=== PATIENT | female | born 1955 | race Hispanic/Latino ===

== ENCOUNTER 2023-08-30 12:29 | Emergency (ER) | payer OTHER, SELFPAY ==
[2023-08-30 12:38] VITALS: BP 158/58
[2023-08-30 12:43] VITALS: BMI 27.5
--- NOTE | 2023-08-30 13:23 | ED.GENMED ---
History of Present Illness
General
Chief Complaint: Catheter/Tube Problem
Source: patient and family
Time Seen by Provider: 08/30/23 12:49
History of Present Illness
History of Present Illness:
68-year-old female presents to the emergency room for evaluation of bleeding from left dialysis graft. Patient states that she typically does not have much bleeding after dialysis but today they could not get the bleeding to stop. She arrives with
a clamp applied to the fistula. Patient also complaining of right ear pain and drainage at times. She was given an antibiotic by her primary care doctor which did not help. She does not know the name of the antibiotic. Patient feels like she has
been having pain in this ear for about 4 months.
Past History
Past History
ED Past Medical History: CVA (Visual issues), HTN, Hypercholesterolemia, IDDM, Renal failure (M-W-F dialysis) and Other (Headaches. Neuropathy, Colitis, )
ED Past Surgical History: Cholecystectomy and Other (AV fistula, Right eye implant)
Social History
Tobacco: Non-smoker
Alcohol: None
Drug: None
Personal:
Living: with family
Employment: Retired
Family History
Family History: Diabetes
Phy Exam
Physical Exam
Physical Exam:
General: Awake, Alert, Oriented X3. No acute distress, appears chronically ill.
Vitals: unremarkable
Head: Atraumatic
Ear: Erythema noted right TM
Eyes: Pupils equal, EOMI
Throat: Airway intact, no exudates
Neck: Trachea midline
Lungs: Clear and equal b/l
Heart: Regular rate, no murmurs
Abd: Soft, Nontender, No pulsatile mass
Neuro: Nonfocal
Skin: Warm, dry, no rash
Extremities: pulses equal b/l, no edema. Left upper extremity AV fistula for dialysis noted with clamp applied. Clamp was removed and bleeding has stopped. There is a pulse and thrill palpated in the graft.
Course
Orders/Labs/Results
Orders:
Orders
08/30/23 13:19
US Hemodialysis Graft Urgent
Comment:
Reason For Exam: bleeding left upper av fistula
08/30/23 13:22
Amoxicillin 875 mg/Clav 125 mg [Augmentin 875 mg/125 mg] 1 tablet PO NOW STA
08/30/23 13:46
Complete Blood Count/With Diff Urgent
Abnormal Lab Results
08/30/23
13:46
RBC 4.09 L 10^6/uL
(4.20-5.40)
Hct 36.0 L %
(37.0-47.0)
RDW 14.6 H %
(11.5-14.5)
Abs Immat Gran (auto) 0.1 H 10^3/uL
(0-0.05)
Absolute Neuts (auto) 6.8 H 10^3/uL
(1.4-6.5)
Absolute Monos (auto) 0.9 H 10^3/uL
(0.1-0.6)
Lymphocytes % 19.5 L %
(20.5-51.1)
08/30/23 13:46
Vital Signs
Initial and Last Documented VS:
Initial Vital Signs
Temp Pulse Resp BP Pulse Ox
97.7 F 71 18 158/58 97
08/30/23 12:38 08/30/23 12:38 08/30/23 12:38 08/30/23 12:38 08/30/23 12:38
Last Documented Vital Signs
Temp Pulse Resp BP Pulse Ox
97.7 F 71 18 158/58 97
08/30/23 12:38 08/30/23 12:38 08/30/23 12:38 08/30/23 12:38 08/30/23 12:38
MDM/Problems Addressed
Differential Diagnosis Includes:
Thrombocytopenia, dysfunction of AV fistula, some persistent bleeding
MDM/Problems Addressed:
Reviewing patient's previous hospitalizations I see that she has had multiple issues with this graft. She had a thrombectomy performed by IR in 2022. This was 1 of many interventions. Will obtain an ultrasound to evaluate for complications of the
graft. From a right ear pain standpoint we will treat the patient with Augmentin
*Pulse Oximetry
Patient hypoxic: no
*Critical Care Note
Total Time (30-74mins, 75-104mins- exclusive of procedures): Not Applicable
ED Attending Note
-
Portions of this chart may have been created with voice recognition software.� Occasional wrong word or��sound alike� substitutions may have occurred due to the inherent limitations of voice recognition software.
Discharge Plan
Departure
Patient Disposition: Home (Routine Discharge)
Date of Disposition: 08/30/23
Time of Disposition: 15:23
Patient with high blood pressure during this ER visit?: Yes
Condition: Good
Discharge Problem:
Hemorrhage of arteriovenous fistula, Otitis media
Instructions: Ear Infections in Adults (DC), Arteriovenous vascular access for hemodialysis
Prescriptions:
No Action
Novolin 70/30 U-100 Insulin 100 unit/mL (70-30) suspension
10 unit SC BID
Triphrocaps 1 mg capsule
1 cap PO DAILY
cholecalciferol (vitamin D3) [Vitamin D3] 25 mcg (1,000 unit) capsule
25 mcg PO DAILY
calcium acetate(phosphat bind) 667 mg capsule
1,334 mg PO MEALS
Veltassa 16.8 gram powder in packet
16.8 g PO DAILY
famotidine 10 mg Tablet
10 mg PO DAILY
nifedipine 60 mg Tablet Extended Release
60 mg PO BID Qty: 60 0RF
acetaminophen 325 mg Tablet
650 mg PO Q4HPRN PRN (Reason: mild pain) Qty: 30 0RF
furosemide 40 mg tablet
40 mg PO SUTUTHSA
furosemide 20 mg tablet
20 mg PO SUTUTHSA
hydralazine 25 mg Tablet
25 mg PO TID 30 Days Qty: 90 0RF
Referrals:
Lion Santos MD [Active] -
Gabo Whitaker MD [Active] -
Cal Luque DO [Family Provider] -
Activity Restrictions/Additional Instructions:
Please follow up with your vascular surgeon for the bleeding from the av fistula. Also, follow up with Dr Santos, who is an ENT doctor, for the right ear infection that has been a problem for months.
Interventions
Interventions:
*Risk Screen - Suicide Last Done: 08/30/23 12:42
*General Assessment Last Done: 08/30/23 12:42
*Neglect/Abuse Screening Last Done: 08/30/23 12:42
ED- Fall Risk Assessment Last Done: 08/30/23 13:15
*ED COVID-19 Vaccine History Last Done: 08/30/23 12:42
*Nursing Disposition Last Done: 08/30/23 15:35
Discharge Date and Time
Discharge Date/Time: 08/30/23 15:35
Print Language: VIETNAMESE
[2023-08-30 13:56] LABS: % Eosinophils 2.1 % (0-6); % Immature Granulocytes 0.5 % (0-0.5); % Lymphocytes 19.5 % (20.5-51.1); % Monocytes 9.3 % (1.7-9.3); % Neutrophils 67.6 % (42.2-75.2); Absolute Basophils 0.1 10^3/uL (0-0.2); Absolute Eosinophils 0.2 10^3/uL (0-0.7); Absolute Immature Granulocytes 0.1 10^3/uL (0-0.05); Absolute Monocytes 0.9 10^3/uL (0.1-0.6); Absolute Neutrophils 6.8 10^3/uL (1.4-6.5); Hemoglobin 12.1 g/dL (12.0-16.0); Mean Corp Hgb Conc. 33.6 g/dL (33.0-37.0); Mean Corpuscular Hgb 29.6 pg (27.0-31.0); Mean Platelet Volume 9.8 fL (7.4-10.4); Nucleated Red Blood Cells % 0 %; Platelet Count 246 10^3/uL (130-400); Red Blood Cell Count 4.09 10^6/uL (4.20-5.40); Red Cell Dist. Width 14.6 % (11.5-14.5)
[2023-08-30] MEDS: AUGMENTIN 875 MG/125 MG 1 TABLET PO (14:22)
== END 2023-08-30 15:35 | disposition home or self-care (01) ==
LOC: EMR 12:29
PROVIDERS: EMERGENCY PHYSICIAN Emergency Medicine; FAMILY PHYSICIAN Family Medicine
DX: T82.838A Hemorrhage due to vascular prosthetic devices, implants and grafts, initial encounter (principal); Y84.1 Kidney dialysis as the cause of abnormal reaction of the patient, or of later complication, without mention of misadventure at the time of the procedure; H66.91 Otitis media, unspecified, right ear; I10 Essential (primary) hypertension; E11.22 Type 2 diabetes mellitus with diabetic chronic kidney disease; N18.6 End stage renal disease; I69.312 Visuospatial deficit and spatial neglect following cerebral infarction; E11.40 Type 2 diabetes mellitus with diabetic neuropathy, unspecified; E78.00 Pure hypercholesterolemia, unspecified; K52.9 Noninfective gastroenteritis and colitis, unspecified; Z99.2 Dependence on renal dialysis; Z79.4 Long term (current) use of insulin; Z90.49 Acquired absence of other specified parts of digestive tract
CPT/HCPCS: 99284; 85025; 93990

== ENCOUNTER 2024-03-18 06:25 | Inpatient (IN) | payer OTHER, SELFPAY ==
[2024-03-18] VITALS (92 sets, daily range): BP systolic 86–221; BP diastolic 39–95; PULSE 80–82; O2SAT 97; BMI 31.5; BMI 31.1
--- NOTE | 2024-03-18 03:50 | ED.GENMED ---
History of Present Illness
General
Chief Complaint: Breathing Problem
Source: patient, family (Son who is at bedside and interpreting) and previous hospital records
Exam Limitations: none
Time Seen by Provider: 03/18/24 03:42
History of Present Illness
History of Present Illness:
This is a 68-year-old Faroese-speaking woman who resides at home with family. She has history of end-stage renal disease, dialysis dependent Monday/Monday/Monday. Insulin requiring diabetes, hypertension, hyperlipidemia.
She presents with abrupt onset of cough and shortness of breath that woke her from sleep approximately 1 hour prior to arrival. Prior to waking she has been feeling well.
No recent URI nor GI illness.
Has been completing her dialysis sessions without adverse event. She denies fever nor chills. She denies sore throat.
No recent change in weight. No leg pain or swelling.
She does continue to urinate a small amount.
There has been no recent change in medications.
Son states diabetes has been well-controlled.
Along with shortness of breath she notes moderate substernal chest heaviness, worse with a deep breath. She denies back pain or neck pain.
Past History
Past History
ED Past Medical History: CVA (Visual issues), HTN, Hypercholesterolemia, IDDM, Renal failure (M-W-F dialysis) and Other (Headaches. Neuropathy, Colitis, )
ED Past Surgical History: Cholecystectomy and Other (AV fistula, Right eye implant)
Social History
Tobacco: Non-smoker
Alcohol: None
Drug: None
Personal:
Living: with family
Employment: Retired
Family History
Family History: Diabetes
Phy Exam
Physical Exam
Physical Exam:
GENERAL: 68-year-old Faroese-speaking woman appears her stated age, awake and alert, in moderate respiratory distress. Room air pulse ox 82%, has improved to 96% on 6 L nasal cannula.
EYE: anicteric
NECK: Supple, nontender, no meningismus, no significant adenopathy. Moderate JVD.
ENT: oral mucosa is moist. No rhinorrhea.
CARDIAC: Regular rate and rhythm. no murmur.
LUNGS: Mild to moderate respiratory distress, bilateral Rales one half of the way up
ABDOMEN: Soft, nondistended, without focal tenderness, no r/g, no cvat. normoactive BS.
NEUROLOGICAL: Alert and oriented x3, no focal neuro deficits.
SKIN: Warm and minimally diaphoretic, normal color, skin intact. No rash.
MUSCULOSKELETAL: Trace pretibial edema bilateral lower extremities, peripheral pulses are full and equal b/l. No palpable tenderness.
PSYCH: Normal and appropriate interaction.
Scores
Heart Failure Risk
Heart Failure Risk Score: Yes
History of Stroke or TIA: Yes
History of intubation for respiratory distress: No
Heart rate on ED arrival >/= 110: No
SaO2 <90% on arrival on room air: Yes
HR >/=110 during 3min walk test (or too ill to perform test): Yes
ECG has acute ischemic changes: No
Urea >/=12mmol/L (BUN 33.6mg/dL): Yes
Serum CO2>/=35mmol/L: No
Troponin I or T elevated to MO Level (0.4mg/dL): No
NT-proBNP >/=5,000ng/L (5,000pg/ml): Yes
HF Risk Score: 6
Admission Status: VERY HIGH RISK 55.3% Consider admission to hospital
Course
Orders/Labs/Results
Orders:
Orders
03/18/24 03:41
Electrocardiogram (*1) Urgent
Reason for Study: Shortness of Breath
EKG- Treatment ONCE
03/18/24 03:48
Furosemide [Lasix] 100 mg IV NOW STA
Nitroglycerin 100 mg/250 ml [Nitroglycerin Premix] 100 mg in 250 ml IV NOW
Initial dose in mcg/min, then titrate:: 5
Titrate to keep:: SBP < 160 mmHg
Titrate by mcg/min:: 5 mcg/min, may increase by 10 mcg/min if dose > 20 mcg/min
Frequency of titrations (minutes):: every 3-5 minutes
Maximum dose in mcg/min:: 200
Begin to taper infusion when:: Remained at goal for 2hrs
Taper by mcg/min:: 5 mcg/min
Frequency of taper (minutes) if patient maintains goal:: 30
Taper to off?: Yes
If infusion off & no longer maintaining goal:: Contact Provider
CR Chest Portable - 1 View Urgent
Comment:
Reason For Exam: acute SOB, hypoxia
Reason Study Needs to be Portable: Patient Unstable
03/18/24 03:54
Basic Metabolic Panel Urgent
Comment: NO K
Complete Blood Count/With Diff Urgent
Magnesium Urgent
NT-proBNP Urgent
Phosphorus Urgent
03/18/24 04:08
Add On- LAB Urgent
Tests Added?: procal
03/18/24 04:19
Whrer-Rzxm-Rdipkef Urgent
Potassium Urgent
Procalcitonin Urgent
Comment: REDRAW
Troponin I Urgent
Comment: SERUM
03/18/24 04:58
Ondansetron Injectable [Zofran] 4 mg .ROUTE .STK-MED ONE
03/18/24 05:00
Ondansetron Injectable [Zofran] 4 mg IV NOW STA
03/18/24 05:03
Dextrose 50%-Water [Dextrose 50% Syringe] 12.5 grams IV [id number] PRN
Dextrose 50%-Water [Dextrose 50% Syringe] 25 grams IV NOW STA
Insulin Human Regular [Novolin R] 10 units IV NOW STA
03/18/24 05:05
COVID-19 Antigen Urgent
Source: Nasal Swab
Influenza A+B Rapid Molecular Urgent
VERA Source: Nasal Swab
Specimen Description:
Bedside Glucose PRE IV Insulin- HyperK+ NOW
03/18/24 05:06
Sodium Bicarbonate 50 meq IV NOW STA
03/18/24 05:08
Albuterol Sulfate [Ventolin Nebules] 10 mg INH R NOW STA
03/18/24 06:06
Admit/Transfer Patient As Directed
Co-Sign Provider:
Level of Care: Inpatient admission
Assign to:: IMU- Intermediate Care
Physician / Group: Bobby
Diagnosis: Hypertensive Emergency / Pulmonary Edema
Reason for Hospitalization: Hypertensive Emergency / Pulmonary Edema
Expected length of stay greater than two midnights?: Yes
ELOS- Estimated Length of Stay in days: 3
I certify the patient meets the requirements for IP care: Yes
PRN Pain Medication Management As Directed
May give lesser potent ordered pain med per pt: Yes
preference::
Protocol:: Medication orders for pain may be administered in a
manner that supports deferring to patient preference
when the pt is:
- Requesting an ordered lesser potent pain medication.
Least to most potent pain medications are defined
as: acetaminophen < NSAID < tramadol < opioids
(morphine, oxycodone, hydromorphone).
- Requesting a lesser dose of the same medication IF
ORDERED.
- Requesting a less intrusive route of administration
if both routes are prescribed by the provider (PO <
IV).
03/18/24 06:08
Code Status As Directed
Resuscitation Status: Full Code
03/18/24 06:11
Add On- LAB Urgent
Tests Added?: Magnesium, Phosphorus
03/18/24 06:35
Bedside Glucose POST IV Insulin- HyperK+ Q1HX2,Q2HX2
03/18/24 07:35
Potassium Urgent
Comment: draw 2 hours after regular insulin IV administration
Abnormal Lab Results
03/18/24 03/18/24 03/18/24
03:54 04:19 05:12
WBC 12.3 H 10^3/uL
(4.8-10.8)
RBC 3.45 L 10^6/uL
(4.20-5.40)
Hgb 10.3 L g/dL
(12.0-16.0)
Hct 31.8 L %
(37.0-47.0)
MCHC 32.4 L g/dL
(33.0-37.0)
RDW 14.8 H %
(11.5-14.5)
MPV 10.6 H fL
(7.4-10.4)
Abs Immat Gran (auto) 0.1 H 10^3/uL
(0-0.05)
Absolute Neuts (auto) 9.0 H 10^3/uL
(1.4-6.5)
Absolute Monos (auto) 1.0 H 10^3/uL
(0.1-0.6)
Lymphocytes % 13.9 L %
(20.5-51.1)
Potassium 6.5 H* mmol/L
(3.5-5.1)
Carbon Dioxide 21 L mmol/L
(22-30)
BUN 71 H mg/dl
(7-17)
Creatinine 10.0 H* mg/dL
(0.6-1.0)
Glucose 187 H mg/dl
(70-99)
Direct Bilirubin 0.6 H mg/dl
(0.0-0.4)
AST 68 H U/L
(14-36)
ALT 100 H U/L
(0-35)
Alkaline Phosphatase 296 H U/L
(38-126)
Total Protein 8.4 H g/dl
(6.3-8.2)
Procalcitonin 0.63 H ng/ml
(0.0-0.25)
POC Glucose 199 H mg/dl
(70-99)
03/18/24 03:54
Vital Signs
Initial and Last Documented VS:
Initial Vital Signs
Temp Pulse Resp BP Pulse Ox
98.7 F 95 32 206/87 82
03/18/24 03:29 03/18/24 03:29 03/18/24 03:29 03/18/24 03:29 03/18/24 03:29
Last Documented Vital Signs
Temp Pulse Resp BP Pulse Ox
98.7 F 110 20 170/70 97
03/18/24 03:29 03/18/24 06:05 03/18/24 06:05 03/18/24 06:05 03/18/24 06:05
MDM/Problems Addressed
Differential Diagnosis Includes:
Concern for acute CHF, ACS, pneumonia.
Noted to be significantly hypertensive.
EKG shows normal sinus rhythm, no acute ST-T wave abnormalities.
Will initiate IV nitroglycerin for preload reduction, improvement in systolic hypertension, will give IV dose of Lasix.
Will check portable chest x-ray, labs and continue supplemental oxygen.
Chronic conditions affecting care: DM, HTN and Kidney disease
*Radiology
Radiology exam reviewed: preliminary read by ED provider (Chest x-ray shows bilateral fluffy infiltrates more pronounced on the right than the left concerning for CHF versus bilateral pneumonia)
*Pulse Oximetry
Patient hypoxic: yes
*EKG
Interpreted by ED Provider?: Yes
Comparison EKG: no changes (Unchanged from previous July 2022)
Rate: normal
Rhythm: sinus
[place]: normal axis
Interval: normal interval
QRS Pattern: normal QRS
Ischemia: other (Peaked T waves anteriorly)
*Viscose Cellar Worker Interpretation
Rate: normal
Interpretation: normal
Rhythm: sinus
*Critical Care Note
Total Time (30-74mins, 75-104mins- exclusive of procedures): 60
comment:
Critical care statement: A total of 60 minutes of critical care time was provided for this patient. This includes management of unstable vital signs, evaluation of the patient at bedside, reviewing the patient's pertinent medical records, discussion
with consultants, review of old EKGs and review of pertinent medical records. This time with separate from time utilized to perform the aforementioned documented procedures
Update Note
Update Note:
Patient appears much more comfortable with nasal cannula oxygen.
Chest pain has resolved. She does continue with intermittent cough, nonproductive.
Systolic hypertension persists, only minimally improved, nitro drip is being titrated up.
Labs remarkable for mildly elevated white blood cell count, mild anemia
Moderately elevated potassium of 6.5. EKG does show some peaked T waves thus hyperkalemia treated emergently with IV dextrose, IV insulin, IV bicarbonate. She had already been given IV Lasix and will give albuterol nebulizer treatment. Calcium is
top normal thus additional calcium has been withheld, especially in light of chronic kidney disease/dialysis dependent.
BNP significantly elevated.
Procalcitonin is mildly elevated and with chest x-ray findings of bilateral fluffy infiltrates, I do suspect with abrupt onset this is CHF in nature but must also consider pneumonia.
She remains afebrile.
Will check COVID and influenza and if these are negative, will consider initiation of IV antibiotics.
Will admit to hospitalist service.
ED Attending Note
-
Portions of this chart may have been created with voice recognition software.� Occasional wrong word or��sound alike� substitutions may have occurred due to the inherent limitations of voice recognition software.
Discharge Plan
Departure
Patient Disposition: Admit
Date of Disposition: 03/18/24
Time of Disposition: 05:38
Admit to: IMU
Admit to doctor: Bobby
Presentation/result/management discussed w/ accepting MD/DO: Hospitalist
Condition: Serious
Covid-19: Negative COVID-19
Discharge Problem:
Acute hypoxemic respiratory failure, Acute cardiogenic pulmonary edema, Cough, concern for bilateral pneumonia, Hypertensive chronic kidney disease with stage 5 chronic kidney disease or end stage renal disease, ESRD (end stage renal disease) on
dialysis, Hyperkalemia
Prescriptions:
No Action
Novolin 70/30 U-100 Insulin 100 unit/mL (70-30) suspension
10 unit SC BID
Triphrocaps 1 mg capsule
1 cap PO DAILY
cholecalciferol (vitamin D3) [Vitamin D3] 25 mcg (1,000 unit) capsule
25 mcg PO DAILY
calcium acetate(phosphat bind) 667 mg capsule
1,334 mg PO MEALS
Veltassa 16.8 gram powder in packet
16.8 g PO DAILY
famotidine 10 mg Tablet
10 mg PO DAILY
nifedipine 60 mg Tablet Extended Release
60 mg PO BID Qty: 60 0RF
acetaminophen 325 mg Tablet
650 mg PO Q4HPRN PRN (Reason: mild pain) Qty: 30 0RF
hydralazine 25 mg Tablet
25 mg PO TID 30 Days Qty: 90 0RF
Referrals:
Cal Luque DO [Family Provider] -
Discharge Date and Time
Print Language: SAMI
[2024-03-18 04:07] LABS: % Basophils 0.9 % (0-2); % Eosinophils 2.9 % (0-6); % Immature Granulocytes 0.5 % (0-0.5); % Lymphocytes 13.9 % (20.5-51.1); % Monocytes 8.4 % (1.7-9.3); % Neutrophils 73.4 % (42.2-75.2); Absolute Basophils 0.1 10^3/uL (0-0.2); Absolute Eosinophils 0.4 10^3/uL (0-0.7); Absolute Immature Granulocytes 0.1 10^3/uL (0-0.05); Absolute Lymphocytes 1.7 10^3/uL (1.2-3.4); Hematocrit 31.8 % (37.0-47.0); Hemoglobin 10.3 g/dL (12.0-16.0); Mean Corp Hgb Conc. 32.4 g/dL (33.0-37.0); Mean Corpuscular Hgb 29.9 pg (27.0-31.0); Mean Corpuscular Volume 92.2 fL (81.0-99.0); Mean Platelet Volume 10.6 fL (7.4-10.4); Nucleated Red Blood Cells % 0 %; Platelet Count 352 10^3/uL (130-400); Red Blood Cell Count 3.45 10^6/uL (4.20-5.40); Red Cell Dist. Width 14.8 % (11.5-14.5); White Blood Cell Count 12.3 10^3/uL (4.8-10.8)
[2024-03-18] MEDS: LASIX 100 MG IV (04:20)
[2024-03-18] MEDS: NITROGLYCERIN PREMIX 250 IV (04:20)
[2024-03-18 04:35] LABS: Blood Urea Nitrogen 71 mg/dl (7-17); Calcium 9.3 mg/dl (8.4-10.2); Carbon Dioxide 21 mmol/L (22-30); Chloride 98 mmol/L (98-107); Estimated Creatinine Clearance 4 ml/min; Glucose 187 mg/dl (70-99); NT-proBNP 8990 pg/ml; Sodium 136 mmol/L (135-145); eGFR 3.82
[2024-03-18] MEDS: ZOFRAN 4 MG IV (05:00)
[2024-03-18 05:01] LABS: ALT (SGPT) 100 U/L (0-35); AST (SGOT) 68 U/L (14-36); Albumin 4.2 g/dl (3.5-5.0); Alkaline Phosphatase 296 U/L (38-126); Direct Bilirubin 0.6 mg/dl (0.0-0.4); Potassium 6.5 mmol/L (3.5-5.1); Total Bilirubin 0.6 mg/dl (0.2-1.3); Total Protein 8.4 g/dl (6.3-8.2)
[2024-03-18 05:07] LABS: Procalcitonin 0.63 ng/ml (0.0-0.25)
[2024-03-18 05:14] LABS: Glucose - Point of Care 199 mg/dl (70-99)
[2024-03-18] MEDS: SODIUM BICARBONATE 50 MEQ IV (05:15)
[2024-03-18] MEDS: DEXTROSE 50% SYRINGE 25 GRAMS IV (05:15)
[2024-03-18] MEDS: VENTOLIN NEBULES 10 MG INH (05:16)
[2024-03-18] MEDS: NOVOLIN R 10 UNITS IV (05:16)
[2024-03-18 05:30] LABS: COVID-19 Antigen Negative (Negative)
[2024-03-18 05:41] LABS: Troponin I 0.017 ng/ml
--- NOTE | 2024-03-18 06:12 | HPS.HSE ---
Family Physician
-
Family Physician: Cal Luque
Chief Complaint
-
SOB, Chest Pain
History of Present Illness
Patient is a 68y F with PMH significant for ESRD on HD, hypertension and DM-II who presents to ED complaining of chest pain and SOB that woke her from sleep early this AM. History obtained from patient and family with family serving as
hemmer automatic. Patient was feeling well last PM upon going to bed. Woke around 2:30 - 3 AM with chest heaviness / 'pounding' and significant SOB. Presented to the ED for further evaluation.
Patient has HD and had her usual session on Monday with no issues.
Some cough noted this AM which family also states is new.
Medical History
Past Medical History
Past Medical History: Reports Other
Additional Past Medical History:
ESRD on HD ()
DM-II
Hypertension
Anemia of CKD
Persistent Hyperkalemia
Suspected Hepatocellular Carcinoma (patient not aware per family request)
Volume Overload / CHFpEF
Past Surgical History: Reports Other
Additional Past Surgical History:
LUE AVG
Cholecystectomy
R Eye Surgery
Social History
Tobacco: Non-smoker
Alcohol: None
Drug: None
Family History
Family History: Not pertinent
Allergies / Home Medications
Allergies reflects when Allergies were last updated in [facility].
Home Medications with original date entered in [facility]
Allergy/Medication List:
Allergies
Allergy/AdvReac Type Severity Reaction Status Date / Time
No Known Allergies Allergy Verified 03/18/24 03:33
Home Medications
calcium acetate(phosphat bind) 667 mg capsule 1,334 mg PO MEALS supplement (renal) 02/25/22
cholecalciferol (vitamin D3) 25 mcg (1,000 unit) capsule (Vitamin D3) 25 mcg PO DAILY Supplement 02/25/22
famotidine 10 mg tablet 10 mg PO DAILY Gastrointestinal issue 02/25/22
insulin human U-100 NPH-regulr 70-30 mix 100 unit/mL subcutaneous susp (Novolin 70/30 U-100 Insulin) 10 unit SC BID Diabetes 02/25/22
patiromer calcium sorbitex 16.8 gram oral powder packet (Veltassa) 16.8 g PO DAILY hyperkalemia (high potassium) 02/25/22
vitamin B complex and vitamin C no.20-folic acid 1 mg capsule (Triphrocaps) 1 cap PO DAILY Supplement 02/25/22
acetaminophen 325 mg tablet 650 mg (2 x 325 mg) PO Q4HPRN PRN mild pain #30 tabs 02/27/22
nifedipine 60 mg tablet,extended release 60 mg PO BID #60 tabs 02/27/22
hydralazine 25 mg tablet 25 mg PO TID 30 days #90 tabs 07/30/22
Review of Systems
-
History Source: Patient and Family
A 12 point ROS was completed and negative except as noted: Yes
Constitutional: Denies Fever or Chills
EENT: Denies Sore Throat
Respiratory: Reports Cough and Trouble Breathing; Denies Hemoptysis
Cardiac: Reports Chest Pain and Palpitations; Denies Diaphoresis
Abdomen/GI: Denies Abdominal Pain, Nausea, Vomiting or Diarrhea
: Reports Other (Patient does produce some urine.); Denies Dysuria, Frequency or Flank Pain
Musculoskeletal: Denies Edema
Neurological: Denies Dizzy or Headache
Psych: Denies Depression or Anxiety
Physical Exam
Vital Signs
Vital Signs
Temp Pulse Resp BP Pulse Ox
98.7 F 110 20 170/70 97
03/18/24 03:29 03/18/24 06:05 03/18/24 06:05 03/18/24 06:05 03/18/24 06:05
Physical Exam
General: Other (68y F in mild - moderate distress due to dyspnea.)
HEENT: Moist mucous membranes, PERRLA and Other (Pos JVD.)
Respiratory: Other (Bilateral rales > 2/3 up. No wheezes.)
Cardiac: S1/S2, Tachycardia and Murmur (II/ ELIDIA)
GI: Soft, Non Tender, Non Distended and Normal Bowel Sounds
Musculoskeletal: No Clubbing, No Cyanosis and No Edema
Neuro: AO x 3
Hematologic/Lymphatic: Other (LUE AVF with pos thrill / bruit.)
Laboratory Results
-
03/18/24 03:54
Laboratory Results
Total Bilirubin 0.6 mg/dl (0.2-1.3) 03/18/24 04:19
AST 68 U/L (14-36) H 03/18/24 04:19
ALT 100 U/L (0-35) H 03/18/24 04:19
Alkaline Phosphatase 296 U/L (38-126) H 03/18/24 04:19
Troponin I 0.017 ng/ml 03/18/24 04:19
Impression/Plan
-
A/P: Patient is a 68y F with PMH significant for ESRD on HD, hypertension and DM-II who presents to ED complaining of chest pain and SOB that woke her from sleep early this AM.
Hypertensive Emergency
Flash Pulmonary Edema secondary to the above
- Admit to IMU for further evaluation and treatment.
- Patient presents with initial BP = 220/70 with pulmonary edema, hypoxemia and chest pain.
- Continue IV NTG and titrate as needed for BP control and improvement in symptoms.
- Nephrology evaluation for HD / UF for definitive therapy.
- Follow serial troponin to peak. EKG without current changes suggestive of acute ischemia.
- Follow for clinical improvement.
- Update Echo - last in 2022 was unremarkable.
ESRD on HD
Hyperkalemia
- -- dialysis schedule.
- K on arrival was 6.5 - given temporizing treatments in the ED.
- Continue daily Veltassa which she takes at home.
- Nephrology eval / HD as noted above.
Anemia of CKD
- Hgb approx 2 grams lower than prior baseline.
- ? dilutional component given current volume overload.
- No evidence of acute blood loss, etc.
- Follow for changes in H&H.
- +/- supplementation, Epo, etc on HD per Nephrology.
DM-II
- Stable. Continue 70.30 insulin at decreased dose for now.
- DM diet. Follow glucose and cover with SSI as needed.
- Update A1C.
Abnormal LFTs
- ? secondary to hepatic congestion / volume overload.
- Degree of chronic elevation and note history / prior imaging studies consistent with hepatocellular carcinoma.
- Family has indicated that patient is not aware of this potential diagnosis / finding at their request.
- Follow LFTs for any changes.
- No further evaluation of liver lesion is planned.
DVT Prophylaxis: Subcut Heparin
Code Status: Full
[2024-03-18 06:23] LABS: Glucose - Point of Care 249 mg/dl (70-99)
[2024-03-18 07:44] LABS: Glucose - Point of Care 227 mg/dl (70-99)
--- NOTE | 2024-03-18 09:30 | PTCARENOTE ---
0900-Received pt from ED via stretcher.Pi awake and alert.Speech is appropriate.Hospital language line utilized for admission information.Pt's son also was able to answer questions for pt.Plan of care discussed with both pt and her son.Denies
pain.+4-5/5 WILKINS noted.SR noted.Nitroglycerin IV at 60 mcg.Crackles noted bl.O2 3l NC.POX 98%No void at this time.Skin integrity as documented.Pt's female friend at bedside.
--- NOTE | 2024-03-18 09:53 | W.CON.NEPH ---
Consultation
-
Date/Time Consultation Requested: 03/18/24 0638
Date/Time Consultation Performed: 02/2724 5322
Requesting Provider: Zachary Cardenas
Performing Provider: Maureen Pritchard
Reason for Consultation: ESRD
Medical History
-
Chief Complaint: sob
History of Present Illness:
68y F with PMH significant for ESRD on HD MWF at [facility], hypertension on Nifedipine, hydralazine, chr hyperkalemia on Veltasa, hyperphosphatemia on calcium acetate and DM-II on insulin who presents to ED complaining of chest pain and
SOB that woke her from sleep at 12 am, symp were mild initially but worsened by 2am and had to bring to ER. History obtained from patient and family with family serving as official court interpreter. Patient was feeling well last PM upon going to bed. in ER she
noted in flash pulm edema and HTN emergency SBP 220/70 and started on nitro gtt, lasix 100mg given, k was high 6.5 insulin, bicarb were given. Pt only makes minimal urine at baseline. Per family there were no issues with her dialysis and she is
compliant with diet and FR. AVG last intervention was months ago. Last HD was on Monday.
No fever, has mild cough. No abd pain, or diarrhea.
Past Medical History
ESRD on HD (M[facility]
Hypertension
Anemia of CKD
Persistent Hyperkalemia
Suspected Hepatocellular Carcinoma (patient not aware per family request)
Volume Overload / CHFpEF
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
Diabetes mellitus, multiple microvascular complications, neuropathy, retinopathy and nephropathy.
History of CVA.
Cholecystectomy.
Chronic headaches.
Past Surgical History: Other (LUE AVG Cholecystectomy R Eye Surgery)
Social History
She resides at home with family. She does not smoke nor consume alcohol.
Family History
Reportedly with CKD, hypertension, and diabetes mellitus.
Family History: Not Pertinent
Allergies / Home Medications
Allergy/AdvReac Type Severity Reaction Status Date / Time
No Known Allergies Allergy Verified 03/18/24 03:33
�Medication �Instructions �Recorded �Confirmed �Type
calcium acetate(phosphat bind) 667 1,334 mg PO MEALS supplement 02/25/22 03/18/24 History
mg capsule (renal)
cholecalciferol (vitamin D3) 25 25 mcg PO DAILY Supplement 02/25/22 03/18/24 History
mcg (1,000 unit) capsule (Vitamin
D3)
famotidine 10 mg tablet 10 mg PO DAILY Gastrointestinal 02/25/22 03/18/24 History
issue
insulin human U-100 NPH-regulr 10 unit SC BID Diabetes 02/25/22 03/18/24 History
70-30 mix 100 unit/mL subcutaneous
susp (Novolin 70/30 U-100 Insulin)
patiromer calcium sorbitex 16.8 16.8 g PO DAILY hyperkalemia (high 02/25/22 03/18/24 History
gram oral powder packet (Veltassa) potassium)
vitamin B complex and vitamin C 1 cap PO DAILY Supplement 02/25/22 03/18/24 History
no.20-folic acid 1 mg capsule
(Triphrocaps)
acetaminophen 325 mg tablet 650 mg (2 x 325 mg) PO Q4HPRN PRN 02/27/22 03/18/24 Rx
mild pain #30 tabs
nifedipine 60 mg tablet,extended 60 mg PO BID #60 tabs 02/27/22 03/18/24 Rx
release
hydralazine 25 mg tablet 25 mg PO TIDPRN PRN high blood 03/18/24 03/18/24 History
pressure
Review of Systems
-
all complete 12 ppoint ROS have been inquired and found negative other than stated in HPI
Physical Exam
Vital Signs
Vital Signs
Temp Pulse Resp BP Pulse Ox
98.6 F 92 17 155/61 97
03/18/24 09:04 03/18/24 08:45 03/18/24 08:45 03/18/24 08:45 03/18/24 09:04
Lab Results
WBC 12.3 10^3/uL (4.8-10.8) H 03/18/24 03:54
RBC 3.45 10^6/uL (4.20-5.40) L 03/18/24 03:54
Hgb 10.3 g/dL (12.0-16.0) L 03/18/24 03:54
Hct 31.8 % (37.0-47.0) L 03/18/24 03:54
Plt Count 352 10^3/uL (130-400) 03/18/24 03:54
Sodium 136 mmol/L (135-145) 03/18/24 03:54
Potassium 5.0 mmol/L (3.5-5.1) 03/18/24 08:02
Chloride 98 mmol/L (98-107) 03/18/24 03:54
Carbon Dioxide 21 mmol/L (22-30) L 03/18/24 03:54
BUN 71 mg/dl (7-17) H 03/18/24 03:54
Creatinine 10.0 mg/dL (0.6-1.0) H* 03/18/24 03:54
eGFR 3.82 03/18/24 03:54
Glucose 187 mg/dl (70-99) H 03/18/24 03:54
Calcium 9.3 mg/dl (8.4-10.2) 03/18/24 03:54
Ygd-P-Keqpbfyjaef Pept 8990 pg/ml 03/18/24 03:54
Albumin 4.2 g/dl (3.5-5.0) 03/18/24 04:19
Physical Exam
General: Awake, Alert, Oriented, AOx3, No Distress and Nontoxic
HEENT: EOMI, Anicteric and Other (difficult to assess JVD with thick neck)
Respiratory: Crackels, Normal Excursion and Nonlabored Respirations
Cardiac: S1/S2 and Murmur (mitral and aortic area)
Breast: Deferred by me
Abdomen: Soft, Nontender and Nondistended
Musculoskeletal: No Cyanosis and No Edema
Skin: No Rash
Neuro: Nonfocal/Grossly Intact
Psych: Mood/afflect pleasant, Insight/judgement good and Appropriate
Vascular Access: AVG
Data Reviewed
-
Radiology: Report Reviewed by me, Discussed with Patient and Discussed with Family
Labs: Labs Reviewed by me, Discussed with Patient and Discussed with Family
Assessment/Plan
-
IMP:
Hypertensive Emergency
Flash Pulmonary Edema secondary to the above
ESRD on HD 7[facility]ideas
chr Hyperkalemia
Anemia of CKD
IDDM-II
Abnormal LFTs
Possible hepatocellular carcinoma.(patient not aware per family request)
h/o CVA
Hyperphosphatemia
Plan:
A/w SOb and flash pulm edema , HTN emergency
HD now, orders provided
may need extra UF tomorrow based on symp
UF as much tolerates
noted murmur on exam-would obtain echo
attempt to wean nitro gtt after HD
resume anti HTN meds
resume phos binder
strict renal diet and FR
Lokelma in place of Veltasa
d/w pt and nursing
d/w son on phone who helped in interpretation
[2024-03-18 09:56] LABS: Glucose - Point of Care 206 mg/dl (70-99)
[2024-03-18 10:23] LABS: Magnesium 2.6 mg/dl (1.6-2.3); Phosphorus 4.5 mg/dl (2.5-4.5)
[2024-03-18] MEDS: HEPARIN 500 UNITS IV ×2 (10:25→11:25)
--- NOTE | 2024-03-18 11:34 | W.PN.NEPH.HD ---
Assessment
-
pt seen during HD
vitals stable
wean nitro gtt as able
UF as tolerates
AVG functions well
Progress Note - Hemodialysis
-
Date of Service: March 18, 2024
Duration: 30 minutes and 3 hours
Potassium Bath: 2
Calcium Bath: 2.5
Opti-Dialyzer: 160
Ultrafiltration: Other (2.5-3.5kg)
Blood Flow: 400
Dialysate Flow: 600
Heparin: yesx2
EPO: no
[2024-03-18 11:43] LABS: Glucose - Point of Care 183 mg/dl (70-99)
--- NOTE | 2024-03-18 12:37 | PTCARENOTE ---
Pt assessed.No change in assessment noted.HD is ongoing.
[2024-03-18] MEDS: VITAMIN D3 (cholecalciferol) 25 MCG PO (13:01)
[2024-03-18] MEDS: PHOSLO 1334 MG PO ×2 (13:01→16:45)
[2024-03-18] MEDS: PROCARDIA XL (EXTENDED RELEASE) 60 MG PO ×2 (13:01→20:19)
[2024-03-18] MEDS: PEPCID 10 MG PO (13:01)
[2024-03-18] MEDS: TYLENOL 650 MG PO (13:02)
[2024-03-18] MEDS: HEPARIN 5000 UNITS SC ×2 (13:02→20:18)
[2024-03-18] MEDS: NOVOLOG FLEXPEN-LOW RESISTANCE 1 UNITS SC (13:10)
--- NOTE | 2024-03-18 13:37 | W.PN.HOSP.TC ---
Today's Communication/Plan
-
HD today
BP improving
restart po meds
ECHO pending
Wean off nitro if possible
Assessment / Plan
Assessment / Plan
General: seen on HD,
HEENT: Moist mucous membranes, PERRLA and Other (Pos JVD.)
Respiratory: Other (Bilateral rales > 2/3 up. No wheezes.)
Cardiac: S1/S2, Tachycardia and Murmur (II/ ELIDIA)
GI: Soft, Non Tender, Non Distended and Normal Bowel Sounds
Musculoskeletal: No Clubbing, No Cyanosis and No Edema
Neuro: AO x 3
Hematologic/Lymphatic: Other (LUE AVF with pos thrill / bruit.)
A/P: Patient is a 68y F with PMH significant for ESRD on HD, hypertension and DM-II who presents to ED complaining of chest pain and SOB that woke her from sleep early this AM.
Hypertensive Emergency
Flash Pulmonary Edema secondary to the above
Acute hypoxic respiratory insufficiency
- Patient presents with initial BP = 220/70 with pulmonary edema, hypoxemia and chest pain.
- Continue IV NTG and titrate as needed for BP control and improvement in symptoms. Wean off nitro gtt post HD.
- Nephrology evaluation for HD / UF for definitive therapy.
- Follow serial troponin to peak. EKG without current changes suggestive of acute ischemia.
- Follow for clinical improvement.
- Update Echo - last in 2022 was unremarkable.
ESRD on HD
Hyperkalemia
- -- dialysis schedule.
- K on arrival was 6.5 - given temporizing treatments in the ED. K improved to 5 and now on HD.
- Continue daily Veltassa which she takes at home.
- Nephrology eval / HD as noted above.
Anemia of CKD
- Hgb approx 2 grams lower than prior baseline.
- ? dilutional component given current volume overload.
- No evidence of acute blood loss, etc.
- Follow for changes in H&H.
- +/- supplementation, Epo, etc on HD per Nephrology.
DM-II
- Stable. Continue 70.30 insulin at decreased dose for now.
- DM diet. Follow glucose and cover with SSI as needed.
- Update A1C.
Abnormal LFTs
- ? secondary to hepatic congestion / volume overload.
- Degree of chronic elevation and note history / prior imaging studies consistent with hepatocellular carcinoma.
- Family has indicated that patient is not aware of this potential diagnosis / finding at their request.
- Follow LFTs for any changes.
- No further evaluation of liver lesion is planned.
DVT Prophylaxis: Subcut Heparin
Code Status: Full
d/w with son over the phone in details
d/w with nephrology
Anticipated Discharge: > 48 hours
Subjective/Interval History
-
Date of Service: March 18, 2024
on oxygen
states of dry cough and pruritus at times
completed HD on monday full course
no chest pain
Objective Data
-
Labs:
Laboratory Results
03/18/24 03/18/24 03/18/24
03:54 04:19 08:02
WBC 12.3 H
Hgb 10.3 L
Hct 31.8 L
Plt Count 352
Sodium 136
Potassium 6.5 H* 5.0
Chloride 98
Carbon Dioxide 21 L
BUN 71 H
Creatinine 10.0 H*
Glucose 187 H
Calcium 9.3
Total Bilirubin Cancelled 0.6
AST Cancelled 68 H
ALT Cancelled 100 H
Alkaline Phosphatase Cancelled 296 H
Vital Signs:
Vital Signs
Temp Pulse Resp BP Pulse Ox
98.6 F 79 16 171/66 98
03/18/24 09:04 03/18/24 12:30 03/18/24 12:30 03/18/24 13:01 03/18/24 12:30
I&O
03/17/24 03/18/24 03/19/24
06:59 06:59 06:59
Intake Total 36 / 36
Balance 36 / 36
[2024-03-18 13:45] LABS: TSH Reflex To Free T4 1.31 uIU/ml (0.47-4.68)
--- NOTE | 2024-03-18 16:33 | PTCARENOTE ---
Pt assessed.No change in assessment noted.HD completed.2.5 kg off as per HD RN.Pt assisted OOB to chair with minimal assist by OT/PT.Stayed OOB x 1 hour.
[2024-03-18] MEDS: APRESOLINE 25 MG PO (16:46)
[2024-03-18] MEDS: NOVOLOG FLEXPEN-LOW RESISTANCE 2 UNITS SC (16:55)
[2024-03-18] MEDS: NOVOLOG MIX 70/30 FLEXPEN 5 UNITS SC (16:56)
[2024-03-18 17:04] LABS: Glucose - Point of Care 227 mg/dl (70-99)
[2024-03-18 17:04] LABS: Troponin I 0.064 ng/ml
[2024-03-18 21:28] LABS: Glucose - Point of Care 247 mg/dl (70-99)
[2024-03-18 21:48] LABS: Troponin I 0.024 ng/ml
[2024-03-19] VITALS (59 sets, daily range): BP systolic 102–190; BP diastolic 38–139
--- NOTE | 2024-03-19 00:32 | PTCARENOTE ---
pt transferred from ICU at shift change. pt is Swiss speaking, family at bedside to help translate. engineering program analyst line at bedside as well. pt is AAOx3, able to make needs known. on 3L 96%. dry cough noted. no c/o pain. pt oriented to new room. pt is
oliguric. able to turn self in bed. care ongoing.
[2024-03-19 04:55] LABS: Hematocrit 28.2 % (37.0-47.0); Hemoglobin 9.1 g/dL (12.0-16.0); Mean Corp Hgb Conc. 32.3 g/dL (33.0-37.0); Mean Corpuscular Hgb 29.4 pg (27.0-31.0); Mean Corpuscular Volume 91.3 fL (81.0-99.0); Mean Platelet Volume 10.5 fL (7.4-10.4); Platelet Count 321 10^3/uL (130-400); Red Blood Cell Count 3.09 10^6/uL (4.20-5.40); Red Cell Dist. Width 14.6 % (11.5-14.5); White Blood Cell Count 11.3 10^3/uL (4.8-10.8)
[2024-03-19 05:47] LABS: Blood Urea Nitrogen 45 mg/dl (7-17); Carbon Dioxide 28 mmol/L (22-30); Chloride 95 mmol/L (98-107); Estimated Creatinine Clearance 6 ml/min; Glucose 228 mg/dl (70-99); Potassium 5.6 mmol/L (3.5-5.1); Sodium 134 mmol/L (135-145); eGFR 5.87
[2024-03-19 07:57] LABS: Glucose - Point of Care 203 mg/dl (70-99)
[2024-03-19] MEDS: NOVOLOG FLEXPEN-LOW RESISTANCE 2 UNITS SC ×2 (08:02→18:28)
[2024-03-19] MEDS: NOVOLOG MIX 70/30 FLEXPEN 5 UNITS SC (08:03)
[2024-03-19] MEDS: VITAMIN D3 (cholecalciferol) 25 MCG PO (08:03)
[2024-03-19] MEDS: PEPCID 10 MG PO (08:03)
[2024-03-19] MEDS: PROCARDIA XL (EXTENDED RELEASE) 60 MG PO ×2 (08:04→20:09)
[2024-03-19] MEDS: HEPARIN 5000 UNITS SC ×2 (08:04→20:14)
[2024-03-19] MEDS: PHOSLO 1334 MG PO ×3 (08:04→18:29)
[2024-03-19] MEDS: LOKELMA 10 GRAM PO (08:04)
--- NOTE | 2024-03-19 08:28 | PTCARENOTE ---
Patient received from second rigger. Patient resting comfortably in bed. AAO, VSS. No events noted overnight. No complaints of pain at this time. Currently on 3L N/C, will attempt to wean as tolerated. Nitro gtt running at 35 for SBP <160, will
titrate as able. No tests scheduled at this time. Call forrester in reach.
[2024-03-19 11:32] LABS: Glycohemoglobin (HgbA1c) 7.3 % (4.0-5.6)
[2024-03-19] MEDS: LOPRESSOR 25 MG PO (11:43)
[2024-03-19 12:07] LABS: Glucose - Point of Care 268 mg/dl (70-99)
[2024-03-19] MEDS: HEPARIN 500 UNITS IV ×2 (12:20→13:20)
--- NOTE | 2024-03-19 12:24 | W.PN.HOSP.TC ---
Today's Communication/Plan
-
Wean off nitro drip
Start Lopressor
Uptitrate blood pressure medication
HD per nephrology
Monitor blood pressure
wean oxygen
Assessment / Plan
Assessment / Plan
General: in NAD
HEENT: Moist mucous membranes, supple
Respiratory: rales improved. on oxygen
Cardiac: S1/S2, regular rhythm, and Murmur (II/ ELIDIA)
GI: Soft, Non Tender, Non Distended and Normal Bowel Sounds
Musculoskeletal: No Clubbing, No Cyanosis and No Edema
Neuro: AO x 3
Hematologic/Lymphatic: Other (LUE AVF with pos thrill / bruit.)
A/P: Patient is a 68y F with PMH significant for ESRD on HD, hypertension and DM-II who presents to ED complaining of chest pain and SOB that woke her from sleep early this AM.
Hypertensive Emergency
Flash Pulmonary Edema secondary to the above
Acute hypoxic respiratory insufficiency
Nonischemic myocardial injury
- Patient presents with initial BP = 220/70 with pulmonary edema, hypoxemia and chest pain.
- Wean off nitro gtt as BP improving. Started lopressor. can uptitrate if needed. Cont procardia
- Nephrology evaluation for HD / UF for definitive therapy.
- Follow for clinical improvement.
- Update Echo EF of 60 to 65%. Mild concentric LVH. Normal right ventricular size and function. Estimated PASP of 36. No regional wall motion abnormality.
- US renal artery pending.
ESRD on HD
Hyperkalemia
- -- dialysis schedule.
- Continue daily Veltassa which she takes at home.
- Nephrology eval / HD as noted above.
Anemia of CKD
- ? dilutional component given current volume overload.
- No evidence of acute blood loss, etc.
- Follow for changes in H&H.
- +/- supplementation, Epo, etc on HD per Nephrology.
DM-II
- Stable. Continue 70.30 insulin at decreased dose for now.
- DM diet. Follow glucose and cover with SSI as needed.
- Doubt A1C would be accurate with ESRD
Abnormal LFTs
- ? secondary to hepatic congestion / volume overload.
- Degree of chronic elevation and note history / prior imaging studies consistent with hepatocellular carcinoma.
- Family has indicated that patient is not aware of this potential diagnosis / finding at their request.
- Follow LFTs for any changes.
- No further evaluation of liver lesion is planned.
DVT Prophylaxis: Subcut Heparin
Code Status: Full
d/w with son over the phone in details
d/w with nephrology
Anticipated Discharge: > 48 hours
Subjective/Interval History
-
Date of Service: March 19, 2024
on 3L oxygen with 100% sats
State of pruritus
Denies chest pain or sob
Objective Data
-
Labs:
Laboratory Results
03/19/24
04:18
WBC 11.3 H
Hgb 9.1 L
Hct 28.2 L
Plt Count 321
Sodium 134 L
Potassium 5.6 H
Chloride 95 L
Carbon Dioxide 28
BUN 45 H
Creatinine 7.0 H*
Glucose 228 H
Calcium 9.0
Vital Signs:
Vital Signs
Temp Pulse Resp BP Pulse Ox
98.8 F 85 16 148/48 100
03/19/24 07:11 03/19/24 11:43 03/19/24 11:30 03/19/24 11:43 03/19/24 11:30
I&O
03/18/24 03/19/24 03/20/24
06:59 06:59 06:59
Intake Total 838.5 / 838.5
Balance 838.5 / 838.5
Data Reviewed
-
Total Time Spent with Patient (in minutes): 55
[2024-03-19] MEDS: NOVOLOG FLEXPEN-LOW RESISTANCE SC (13:00)
--- NOTE | 2024-03-19 15:23 | W.PN.NEPH.HD ---
Assessment
-
pt seen during HD
vitals stable, off nitro gtt
UF as toelrated
HD again tomorrow
EDW need to be readjusted
no clear etiology of pulm edema, echo normal EF, PAP 36 better than before
check renal art duplex
may add hydralazine if BP remains high
d/w son on phone this morning
Progress Note - Hemodialysis
-
Date of Service: March 19, 2024
Duration: 30 minutes and 2 hours
Potassium Bath: 2
Calcium Bath: 2.5
Opti-Dialyzer: 160
Ultrafiltration: Other (2kg)
Blood Flow: 400
Dialysate Flow: 600
Heparin: yesx2
EPO: no
[2024-03-19] MEDS: DEBROX EAR DROPS OTIC (16:07)
--- NOTE | 2024-03-19 17:35 | CM ---
Kazakh speaking patient with Hx ESRD on HD. Room air. PT/OT recommend HH.
Met with patient, niece, with son Naseme on speaker phone;
the patient resides with her daughter Yun in a first floor apartment with 3 [address].
She is assisted with ADLs and is able to ambulate short distances only.
Patient goes to dialysis at [facility] MWF 6a-10:30amm. Son or other children provide transport to HD and Transport provides her ride home.
The patient has no DME.
Prior VN - son can't remember agency
No prior SNF
PCP - [facility]
Pharmacy - [facility]
Son states he applied for a caregiver through the Waiver program and is waiting to hear if approved. He would like VN for SN/PT/OT and agrees to a referral to [facility].
Plan home with [facility].
[2024-03-19 17:50] LABS: Glucose - Point of Care 249 mg/dl (70-99)
[2024-03-19] MEDS: NOVOLOG MIX 70/30 FLEXPEN 10 UNITS SC (18:29)
[2024-03-19] MEDS: LOPRESSOR 50 MG PO (20:13)
[2024-03-19] MEDS: DEBROX EAR DROPS 4 DROP OTIC (20:23)
[2024-03-19 21:11] LABS: Glucose - Point of Care 136 mg/dl (70-99)
--- NOTE | 2024-03-19 23:49 | PTCARENOTE ---
Assumed care of Pt from previous RN. Pt primarily Syriac speaking. chemical production machine operator device at bedside. Family was at bedside but went home for the evening. AAOx3. NSR on monitor. Assessment as documented. Call light in reach.
[2024-03-20] VITALS (35 sets, daily range): BP systolic 101–184; BP diastolic 35–75; PULSE 69; O2SAT 95–96; BMI 27.3
[2024-03-20 08:04] LABS: Glucose - Point of Care 207 mg/dl (70-99)
--- NOTE | 2024-03-20 08:27 | PTCARENOTE ---
Patient received from promotions executive producer. Patient resting comfortably in bed. AAO, VSS. No complaints of pain at this time. No events noted overnight. Patient currently on 2L N/C, will attempt to wean to Room Air. To get HD today and possible D/C
after. Call forrester in reach.
[2024-03-20] MEDS: PROCARDIA XL (EXTENDED RELEASE) 60 MG PO (08:50)
[2024-03-20] MEDS: HEPARIN 5000 UNITS SC (08:50)
[2024-03-20] MEDS: PEPCID 10 MG PO (08:54)
[2024-03-20] MEDS: LOKELMA 10 GRAM PO (08:54)
[2024-03-20] MEDS: PHOSLO 1334 MG PO ×3 (08:54→17:46)
[2024-03-20] MEDS: VITAMIN D3 (cholecalciferol) 25 MCG PO (08:54)
[2024-03-20] MEDS: LOPRESSOR 50 MG PO (08:54)
[2024-03-20] MEDS: DEBROX EAR DROPS 1 DROP OTIC (08:55)
[2024-03-20] MEDS: NOVOLOG MIX 70/30 FLEXPEN 10 UNITS SC ×2 (08:56→17:45)
[2024-03-20] MEDS: NOVOLOG FLEXPEN-LOW RESISTANCE 2 UNITS SC ×2 (08:56→11:33)
[2024-03-20 11:43] LABS: Glucose - Point of Care 220 mg/dl (70-99)
[2024-03-20] MEDS: HEPARIN 500 UNITS IV ×2 (12:55→13:55)
[2024-03-20 13:20] LABS: % Basophils 0.8 % (0-2); % Eosinophils 2.1 % (0-6); % Immature Granulocytes 0.5 % (0-0.5); % Lymphocytes 18.2 % (20.5-51.1); % Monocytes 12.9 % (1.7-9.3); % Neutrophils 65.5 % (42.2-75.2); Absolute Basophils 0.1 10^3/uL (0-0.2); Absolute Eosinophils 0.2 10^3/uL (0-0.7); Absolute Immature Granulocytes 0.1 10^3/uL (0-0.05); Absolute Monocytes 1.4 10^3/uL (0.1-0.6); Absolute Neutrophils 7.2 10^3/uL (1.4-6.5); Hematocrit 31.9 % (37.0-47.0); Hemoglobin 10.4 g/dL (12.0-16.0); Mean Corp Hgb Conc. 32.6 g/dL (33.0-37.0); Mean Corpuscular Hgb 29.7 pg (27.0-31.0); Mean Corpuscular Volume 91.1 fL (81.0-99.0); Mean Platelet Volume 10.6 fL (7.4-10.4); Nucleated Red Blood Cells % 0 %; Platelet Count 349 10^3/uL (130-400); Red Cell Dist. Width 14.4 % (11.5-14.5)
--- NOTE | 2024-03-20 13:30 | W.PN.HOSP.TC ---
Today's Communication/Plan
-
HD today
plan for dc later today?
nephro recs
off oxygen
monitor BP
Assessment / Plan
Assessment / Plan
General: in NAD
HEENT: Moist mucous membranes, supple
Respiratory: cta
Cardiac: S1/S2, regular rhythm, and Murmur (II/ ELIDIA)
GI: Soft, Non Tender, Non Distended and Normal Bowel Sounds
Musculoskeletal: No Clubbing, No Cyanosis and No Edema
Neuro: AO x 3
Hematologic/Lymphatic: Other (LUE AVF with pos thrill / bruit.)
A/P: Patient is a 68y F with PMH significant for ESRD on HD, hypertension and DM-II who presents to ED complaining of chest pain and SOB that woke her from sleep early this AM.
Hypertensive Emergency
Flash Pulmonary Edema secondary to the above
Acute hypoxic respiratory insufficiency-on room air now.
Nonischemic myocardial injury
Non ischemic myocardial injury 2/2 HTN emergency in ESRD patient
- Patient presents with initial BP = 220/70 with pulmonary edema, hypoxemia and chest pain.
- Weaned off nitro gtt. Started lopressor. can uptitrate if needed. Cont procardia. BP improved.
- Nephrology evaluation for HD / UF for definitive therapy.
- Follow for clinical improvement.
- Update Echo EF of 60 to 65%. Mild concentric LVH. Normal right ventricular size and function. Estimated PASP of 36. No regional wall motion abnormality.
- US renal artery without significant stenosis.
ESRD on HD
Hyperkalemia
- -- dialysis schedule.
- Continue daily Veltassa which she takes at home.
- Nephrology eval / HD as noted above.
Anemia of CKD
- ? dilutional component given current volume overload.
- No evidence of acute blood loss, etc.
- Follow for changes in H&H. Hgb at 10.4 stable.
- +/- supplementation, Epo,IV iron on HD per Nephrology.
DM-II
- Stable. Continue 70.30 insulin BID dose.
- DM diet. Follow glucose and cover with SSI as needed.
- Doubt A1C would be accurate with ESRD
Abnormal LFTs
- ? secondary to hepatic congestion / volume overload.
- Degree of chronic elevation and note history / prior imaging studies consistent with hepatocellular carcinoma.
- Family has indicated that patient is not aware of this potential diagnosis / finding at their request.
- Follow LFTs for any changes. Lab pending
- No further evaluation of liver lesion is planned.
DVT Prophylaxis: Subcut Heparin
Code Status: Full
d/w with son at bedside in details.
d/w with nephrology
PT/OT-hOME VN.
Anticipated Discharge: Today
Subjective/Interval History
-
Date of Service: March 20, 2024
denies cough
feeling better
Objective Data
-
Labs:
Laboratory Results
03/20/24
12:50
WBC 11.0 H
Hgb 10.4 L
Hct 31.9 L
Plt Count 349
Sodium Pending
Potassium Pending
Chloride Pending
Carbon Dioxide Pending
BUN Pending
Creatinine Pending
Glucose Pending
Calcium Pending
Vital Signs:
Vital Signs
Temp Pulse Resp BP Pulse Ox
98.5 F 67 23 144/57 98
03/20/24 12:01 03/20/24 10:00 03/20/24 10:00 03/20/24 10:00 03/20/24 10:00
I&O
03/19/24 03/20/24 03/21/24
06:59 06:59 06:59
Intake Total 838.5 / 838.5 240 / 240
Balance 838.5 / 838.5 240 / 240
Data Reviewed
-
Total Time Spent with Patient (in minutes): 55
[2024-03-20] MEDS: MANNITOL 25% 12.5 GRAMS IV ×2 (13:35→15:13)
[2024-03-20] MEDS: RETACRIT 4000 UNITS IV (13:36)
[2024-03-20] MEDS: FLEXBUMIN 25% FOR HEMODIALYSIS 12.5 GRAMS IV ×2 (13:36→15:13)
[2024-03-20 14:44] LABS: ALT (SGPT) 60 U/L (0-35); AST (SGOT) 35 U/L (14-36); Alkaline Phosphatase 204 U/L (38-126); Blood Urea Nitrogen 47 mg/dl (7-17); Calcium 9.4 mg/dl (8.4-10.2); Carbon Dioxide 30 mmol/L (22-30); Chloride 94 mmol/L (98-107); Estimated Creatinine Clearance 5 ml/min; Glucose 167 mg/dl (70-99); Potassium 4.7 mmol/L (3.5-5.1); Sodium 137 mmol/L (135-145); Total Bilirubin 0.1 mg/dl (0.2-1.3); Total Protein 8.3 g/dl (6.3-8.2); eGFR 5.58
--- NOTE | 2024-03-20 15:45 | W.DCSUMMARY ---
Discharge Summary
Discharge Data
Date of Admission: 03/18/24
Date of Discharge: 03/20/24
-
Pending Results: No
Hospital Course
68y F with PMH significant for ESRD on HD, hypertension and DM-II who presents to ED complaining of chest pain and SOB that woke her from sleep early this AM. Patient was started on nitro drip. Patient was admitted to IMU. Nephrology was
consulted. Patient blood pressure down trended. Patient underwent dialysis. Patient was complaining of shortness of breath and required oxygenation. Patient was also started on Lopressor and Procardia was restarted. Nitroglycerin was eventually
weaned off. Patient also underwent echocardiogram. Updated Echo EF of 60 to 65%. Mild concentric LVH. Normal right ventricular size and function. Estimated PASP of 36. No regional wall motion abnormality. US renal artery without significant
stenosis. Patient blood pressure significantly down trended. Patient was weaned off oxygen. Patient received regular scheduled hemodialysis treatment. Patient be discharged home with adjustment in blood pressure medication. Patient son was
updated throughout hospitalization.
Discharge Plan
-
Patient Disposition: Home (Routine Discharge)
Discharge Diagnosis/Procedures: Hypertensive Emergency
Flash Pulmonary Edema secondary to the above
Acute hypoxic respiratory insufficiency
Non ischemic myocardial injury 2/2 HTN emergency in ESRD patient
Hyperkalemia
Anemia of CKD
Diet: 2 Gram Sodium, Diabetic, Carb Controlled and Restrict fluids to 48 oz
Activity: With assistance and As tolerated
Driving Restrictions: Not until seen by your Dr
Referrals:
Cal Luque DO [Family Provider] - in less than 1 week
Prescriptions:
New
metoprolol tartrate 50 mg Tablet
50 mg PO BID Qty: 60 0RF
Continued
Novolin 70/30 U-100 Insulin 100 unit/mL (70-30) suspension
10 unit SC BID
Triphrocaps 1 mg capsule
1 cap PO DAILY
cholecalciferol (vitamin D3) [Vitamin D3] 25 mcg (1,000 unit) capsule
25 mcg PO DAILY
calcium acetate(phosphat bind) 667 mg capsule
1,334 mg PO MEALS
Veltassa 16.8 gram powder in packet
16.8 g PO DAILY
famotidine 10 mg Tablet
10 mg PO DAILY
nifedipine 60 mg Tablet Extended Release
60 mg PO BID Qty: 60 0RF
acetaminophen 325 mg Tablet
650 mg PO Q4HPRN PRN (Reason: mild pain) Qty: 30 0RF
hydralazine 25 mg tablet
25 mg PO TIDPRN PRN (Reason: high blood pressure)
Discharge Date and Time
Print Language: IRAQI
[2024-03-20] MEDS: TYLENOL 650 MG PO (15:51)
--- NOTE | 2024-03-20 16:23 | W.PN.NEPH.HD ---
Assessment
-
Seen on HD. no complaints. VSS, access ok
for dc
Progress Note - Hemodialysis
-
Date of Service: March 20, 2024
Duration: 30 minutes and 3 hours
Potassium Bath: 2
Calcium Bath: 2.5
Opti-Dialyzer: 160
Ultrafiltration: Other (1.5)
Blood Flow: 400
Dialysate Flow: 600
Heparin: 500x2
EPO: 4000 units
[2024-03-20 17:10] LABS: Glucose - Point of Care 119 mg/dl (70-99)
--- NOTE | 2024-03-20 17:29 | CM ---
Micronesian speaking patient with Hx ESRD on HD. Room air. PT/OT recommend HH.
Met with patient, daughter and spoke with son Naseem by phone; all agree with d/c home today with [facility]. IMM completed with son & daughter. Another son will be here this evening to take the patient home.
Spoke with [facility] (fax [phone]); confirmed d/c today.
Plan home today with [facility].
[2024-03-20] MEDS: NOVOLOG FLEXPEN-LOW RESISTANCE SC (17:39)
--- NOTE | 2024-03-20 18:16 | PTCARENOTE ---
Patient discharged to home. Patient left with family. Discharge instructions reviewed and all questions answered. Patient take to main lobby via wheel chair. Left with all known belongings.
== END 2024-03-20 18:12 | disposition home health service (06) | DRG 304 ==
LOC: IMU 06:25
PROVIDERS: ADMITTING PHYSICIAN Hospitalist; ATTENDING PHYSICIAN Hospitalist; EMERGENCY PHYSICIAN Emergency Medicine; FAMILY PHYSICIAN Family Medicine; OTHER PHYSICIAN Internal Medicine
PROC: 5A1D70Z Performance of Urinary Filtration, Intermittent, Less than 6 Hours Per Day (ICD-10-PCS; 2024-03-18)
DX: I16.1 Hypertensive emergency (principal); J81.0 Acute pulmonary edema; N18.6 End stage renal disease; I5A Non-ischemic myocardial injury (non-traumatic); C22.0 Liver cell carcinoma; I12.0 Hypertensive chronic kidney disease with stage 5 chronic kidney disease or end stage renal disease; E11.22 Type 2 diabetes mellitus with diabetic chronic kidney disease; D63.1 Anemia in chronic kidney disease; E11.40 Type 2 diabetes mellitus with diabetic neuropathy, unspecified; E78.00 Pure hypercholesterolemia, unspecified; E87.5 Hyperkalemia; R09.02 Hypoxemia; R06.89 Other abnormalities of breathing; K76.1 Chronic passive congestion of liver; E87.79 Other fluid overload; Z99.2 Dependence on renal dialysis; Z86.73 Personal history of transient ischemic attack (TIA), and cerebral infarction without residual deficits; Z79.4 Long term (current) use of insulin; Z79.899 Other long term (current) drug therapy; Z11.52 Encounter for screening for COVID-19
CPT/HCPCS: 71045; 80048; 80053; 80076; 82248; 82962; 83036; 83735; 83880; 84100; 84132; 84145; 84443; 84484; 85025; 85027; 87502; 87811; 93005; 93306; 93975; 94640; 96374; 96375; 97162; 97167; 97535; 99291; G0257; P9047; Q5106

== ENCOUNTER 2024-04-24 15:29 | Emergency (ER) | payer OTHER, SELFPAY ==
[2024-04-24] VITALS (9 sets, daily range): BP systolic 136–179; BP diastolic 47–81; BMI 20.8
[2024-04-24 16:03] LABS: % Basophils 0.7 % (0-2); % Eosinophils 0.7 % (0-6); % Immature Granulocytes 0.3 % (0-0.5); % Lymphocytes 13.4 % (20.5-51.1); % Monocytes 9.2 % (1.7-9.3); % Neutrophils 75.7 % (42.2-75.2); Absolute Basophils 0.1 10^3/uL (0-0.2); Absolute Eosinophils 0.1 10^3/uL (0-0.7); Absolute Lymphocytes 1.6 10^3/uL (1.2-3.4); Absolute Monocytes 1.1 10^3/uL (0.1-0.6); Absolute Neutrophils 9.2 10^3/uL (1.4-6.5); Hematocrit 32.8 % (37.0-47.0); Hemoglobin 10.6 g/dL (12.0-16.0); Mean Corp Hgb Conc. 32.3 g/dL (33.0-37.0); Mean Corpuscular Hgb 29.4 pg (27.0-31.0); Mean Corpuscular Volume 90.9 fL (81.0-99.0); Mean Platelet Volume 9.8 fL (7.4-10.4); Nucleated Red Blood Cells % 0 %; Platelet Count 313 10^3/uL (130-400); Red Blood Cell Count 3.61 10^6/uL (4.20-5.40); Red Cell Dist. Width 14.6 % (11.5-14.5); White Blood Cell Count 12.1 10^3/uL (4.8-10.8)
[2024-04-24 16:19] LABS: ALT (SGPT) 24 U/L (0-35); AST (SGOT) 42 U/L (14-36); Albumin 4.5 g/dl (3.5-5.0); Alkaline Phosphatase 153 U/L (38-126); Blood Urea Nitrogen 20 mg/dl (7-17); Calcium 10.2 mg/dl (8.4-10.2); Carbon Dioxide 36 mmol/L (22-30); Chloride 87 mmol/L (98-107); Glucose 324 mg/dl (70-99); Potassium 4.1 mmol/L (3.5-5.1); Sodium 133 mmol/L (135-145); Total Bilirubin 0.8 mg/dl (0.2-1.3); Total Protein 9.6 g/dl (6.3-8.2); eGFR 10.53
[2024-04-24 16:26] LABS: Troponin I < 0.012 ng/ml
[2024-04-24 16:35] LABS: COVID-19 Antigen Negative (Negative)
--- NOTE | 2024-04-24 17:35 | ED.GENMED ---
History of Present Illness
General
Chief Complaint: Chest Pain
Source: patient and family
Time Seen by Provider: 04/24/24 15:40
History of Present Illness
History of Present Illness:
68-year-old female presents to the emergency room complaining of chest pain, chills and bodyaches. Symptoms began Monday after dialysis. Symptoms felt a bit worse today after dialysis treatment today. Patient has a subjective fever but has not
measured her temperature. She denies any nausea or vomiting.
Past History
Past History
ED Past Medical History: CVA (Visual issues), HTN, Hypercholesterolemia, IDDM, Renal failure (M-W-F dialysis) and Other (Headaches. Neuropathy, Colitis, )
ED Past Surgical History: Cholecystectomy and Other (AV fistula, Right eye implant)
Social History
Tobacco: Non-smoker
Alcohol: None
Drug: None
Personal:
Living: with family
Employment: Retired
Family History
Family History: Diabetes
Phy Exam
Physical Exam
Physical Exam:
General: Awake, Alert, Oriented X3. No acute distress., Appears stated age and chronically ill
Vitals: unremarkable
Head: Atraumatic
Eyes: Pupils equal, EOMI
Throat: Airway intact, no exudates
Neck: Trachea midline
Lungs: Few crackles bilateral bases
Heart: Regular rate, no murmurs
Abd: Soft, Nontender, No pulsatile mass
Neuro: Nonfocal
Skin: Warm, dry, no rash
Extremities: pulses equal b/l, no edema
Scores
Heart Score for Chest Pain Patients
STEMI patient?: No
History: Slightly or Non-Suspicious
ECG: Nonspecific Repolarization
Age: >/= 65 years
Risk Factors: >/= 3 Risk Factors or History of CAD
Troponin: </= Normal Limit
Heart Score for Chest Pain Patients: 5
Heart Score Risk: 20.3% MACE over next 6 weeks
Course
Orders/Labs/Results
Orders:
Orders
04/24/24 15:30
Electrocardiogram (*1) Urgent
Reason for Study: Chest Pain
EKG- Treatment ONCE
04/24/24 15:49
Cardiac Monitoring- Treatment ONCE
CR Chest - 2 Views Urgent
Comment:
Reason For Exam: chest pain
04/24/24 15:55
COVID-19 Antigen Urgent
Source: Nasal Swab
Complete Blood Count/With Diff Urgent
Comprehensive Metabolic Panel Urgent
Troponin I Urgent
Influenza A+B Rapid Molecular Urgent
VERA Source: Nasal Swab
Specimen Description:
04/24/24 18:27
Troponin I Urgent
04/24/24 19:24
Acetaminophen [Tylenol] 650 mg PO NOW STA
Lidocaine [Lidocaine 4% Patch] 1 patch TOPICAL NOW STA
Apply Lidocaine patch(s) to:: chest
Abnormal Lab Results
04/24/24
15:55
WBC 12.1 H 10^3/uL
(4.8-10.8)
RBC 3.61 L 10^6/uL
(4.20-5.40)
Hgb 10.6 L g/dL
(12.0-16.0)
Hct 32.8 L %
(37.0-47.0)
MCHC 32.3 L g/dL
(33.0-37.0)
RDW 14.6 H %
(11.5-14.5)
Absolute Neuts (auto) 9.2 H 10^3/uL
(1.4-6.5)
Absolute Monos (auto) 1.1 H 10^3/uL
(0.1-0.6)
Neutrophils % 75.7 H %
(42.2-75.2)
Lymphocytes % 13.4 L %
(20.5-51.1)
Sodium 133 L mmol/L
(135-145)
Chloride 87 L mmol/L
(98-107)
Carbon Dioxide 36 H mmol/L
(22-30)
BUN 20 H mg/dl
(7-17)
Creatinine 4.3 H* mg/dL
(0.6-1.0)
Glucose 324 H mg/dl
(70-99)
AST 42 H U/L
(14-36)
Alkaline Phosphatase 153 H U/L
(38-126)
Total Protein 9.6 H g/dl
(6.3-8.2)
04/24/24 15:55
04/24/24 15:55
Vital Signs
Initial and Last Documented VS:
Initial Vital Signs
Temp Pulse Resp BP Pulse Ox
99.3 F 95 18 176/59 96
04/24/24 15:32 04/24/24 15:32 04/24/24 15:32 04/24/24 15:32 04/24/24 15:32
Last Documented Vital Signs
Temp Pulse Resp BP Pulse Ox
98.1 F 80 18 161/51 99
04/24/24 19:12 04/24/24 19:12 04/24/24 19:12 04/24/24 19:00 04/24/24 19:30
MDM/Problems Addressed
Differential Diagnosis Includes:
acs, pneumonia, flu, covid
MDM/Problems Addressed:
Patient presents with cough, body aches, chest pain. Workup here shows no evidence of any acute ischemic process. She has an elevated creatinine at this baseline given her end-stage renal disease. Troponin was normal x 2. X-ray shows no acute
changes. No evidence for an unstable process requiring hospitalization. Patient discharged to follow-up as an outpatient.
*Radiology
Radiology exam reviewed: preliminary read by ED provider (No acute abnormalities on my review of the patient's chest x-ray)
*Pulse Oximetry
Patient hypoxic: no
*EKG
Interpreted by ED Provider?: Yes
Heart Rate: 89
Rate: normal
Rhythm: sinus
[place]: left axis deviation
Interval: normal interval
QRS Pattern: normal QRS
Ischemia: non-specific ST changes
*Coroner Technician Interpretation
Rate: normal
Interpretation: normal
Rhythm: sinus
*Critical Care Note
Total Time (30-74mins, 75-104mins- exclusive of procedures): Not Applicable
ED Attending Note
-
Portions of this chart may have been created with voice recognition software.� Occasional wrong word or��sound alike� substitutions may have occurred due to the inherent limitations of voice recognition software.
Discharge Plan
Departure
Patient Disposition: Home (Routine Discharge)
Date of Disposition: 04/24/24
Time of Disposition: 19:23
Patient with high blood pressure during this ER visit?: Yes
Condition: Good
Discharge Problem:
Chest pain
Instructions: Chest Pain CBC Follow Up, BLOOD PRESSURE
Prescriptions:
No Action
cholecalciferol (vitamin D3) [Vitamin D3] 25 mcg (1,000 unit) capsule
25 mcg PO DAILY
calcium acetate(phosphat bind) 667 mg capsule
1,334 mg PO MEALS
Veltassa 16.8 gram powder in packet
16.8 g PO DAILY
nifedipine 60 mg Tablet Extended Release
60 mg PO BID Qty: 60 0RF
metoprolol tartrate 50 mg Tablet
50 mg PO BID Qty: 60 0RF
famotidine 10 mg Tablet
10 mg PO DAILY
ondansetron HCl 4 mg Tablet
4 mg PO Q6HPRN PRN (Reason: nausea)
insulin NPH and regular human 100 unit/mL (70-30) Suspension
10 unit SC BID
aspirin 81 mg Tablet,Delayed Release (Dr/Ec)
81 mg PO DAILY
acetaminophen 500 mg Tablet
1,000 mg PO Q6HPRN PRN (Reason: mild pain)
Triphrocaps 1 mg Capsule
1 cap PO DAILY
loratadine [Claritin] 10 mg Tablet
10 mg PO DAILYPRN PRN (Reason: allergies)
melatonin 1 mg Tablet
1 mg PO HSPRN PRN (Reason: sleep)
Referrals:
Cal Luque DO [Family Provider] -
Interventions
Interventions:
*Risk Screen - Suicide Last Done: 04/24/24 15:32
*General Assessment Last Done: 04/24/24 16:16
*Neglect/Abuse Screening Last Done: 04/24/24 15:32
*ED- Fall Risk Assessment Last Done: 04/24/24 16:16
*ED COVID-19 Vaccine History Last Done: 04/24/24 15:32
*Nursing Disposition Last Done: 04/24/24 19:44
ED- Cardiac Assessment Last Done: 04/24/24 16:16
Discharge Date and Time
Discharge Date/Time: 04/24/24 19:45
Print Language: [place] CITIZEN
[2024-04-24 18:59] LABS: Troponin I < 0.012 ng/ml
[2024-04-24] MEDS: LIDOCAINE 4% PATCH 1 PATCH TOPICAL (19:32)
[2024-04-24] MEDS: TYLENOL 650 MG PO (19:32)
== END 2024-04-24 19:45 | disposition home or self-care (01) ==
LOC: EMR 15:29
PROVIDERS: EMERGENCY PHYSICIAN Emergency Medicine; FAMILY PHYSICIAN Family Medicine
DX: R07.9 Chest pain, unspecified (principal); M79.10 Myalgia, unspecified site; R68.83 Chills (without fever); Z11.52 Encounter for screening for COVID-19; I12.0 Hypertensive chronic kidney disease with stage 5 chronic kidney disease or end stage renal disease; E11.22 Type 2 diabetes mellitus with diabetic chronic kidney disease; N18.6 End stage renal disease; Z99.2 Dependence on renal dialysis; E78.00 Pure hypercholesterolemia, unspecified; Z79.4 Long term (current) use of insulin; Z86.73 Personal history of transient ischemic attack (TIA), and cerebral infarction without residual deficits
CPT/HCPCS: 99285; 71046; 80053; 84484; 85025; 87502; 87811; 93005

== ENCOUNTER 2024-05-02 22:09 | Inpatient (IN) | payer OTHER, SELFPAY ==
[2024-05-02 16:15] VITALS: BP 157/59
[2024-05-02 19:47] VITALS: BMI 27.0
[2024-05-02 19:51] VITALS: BP 175/56
[2024-05-02 20:12] LABS: % Basophils 0.8 % (0-2); % Eosinophils 1.8 % (0-6); % Immature Granulocytes 0.6 % (0-0.5); % Lymphocytes 26.3 % (20.5-51.1); % Monocytes 11.3 % (1.7-9.3); % Neutrophils 59.2 % (42.2-75.2); Absolute Basophils 0.1 10^3/uL (0-0.2); Absolute Eosinophils 0.2 10^3/uL (0-0.7); Absolute Immature Granulocytes 0.1 10^3/uL (0-0.05); Absolute Lymphocytes 3.2 10^3/uL (1.2-3.4); Absolute Monocytes 1.4 10^3/uL (0.1-0.6); Absolute Neutrophils 7.1 10^3/uL (1.4-6.5); Hematocrit 28.3 % (37.0-47.0); Hemoglobin 9.2 g/dL (12.0-16.0); Mean Corp Hgb Conc. 32.5 g/dL (33.0-37.0); Mean Corpuscular Hgb 29.8 pg (27.0-31.0); Mean Corpuscular Volume 91.6 fL (81.0-99.0); Mean Platelet Volume 9.9 fL (7.4-10.4); Nucleated Red Blood Cells % 0 %; Platelet Count 358 10^3/uL (130-400); Red Blood Cell Count 3.09 10^6/uL (4.20-5.40); Red Cell Dist. Width 15.1 % (11.5-14.5)
[2024-05-02] MEDS: ASPIRIN 325 MG PO (20:13)
[2024-05-02 20:22] VITALS: BP 177/61
[2024-05-02 20:22] LABS: INR 0.95; PT 13.2 Sec (11.4-14.6)
[2024-05-02 20:27] LABS: ALT (SGPT) 44 U/L (0-35); AST (SGOT) 44 U/L (14-36); Albumin 4.7 g/dl (3.5-5.0); Alkaline Phosphatase 207 U/L (38-126); Blood Urea Nitrogen 50 mg/dl (7-17); Calcium 10.9 mg/dl (8.4-10.2); Carbon Dioxide 29 mmol/L (22-30); Chloride 93 mmol/L (98-107); Estimated Creatinine Clearance 6 ml/min; Glucose 201 mg/dl (70-99); Sodium 138 mmol/L (135-145); Total Bilirubin 0.7 mg/dl (0.2-1.3); Total Protein 9.8 g/dl (6.3-8.2); eGFR 4.85
[2024-05-02 20:35] LABS: Troponin I < 0.012 ng/ml
--- NOTE | 2024-05-02 20:49 | ED.GENMED ---
History of Present Illness
General
Chief Complaint: Chest Pain
Source: patient
Exam Limitations: none
Time Seen by Provider: 05/02/24 19:48
Nursing documentation reviewed up to this point in time: agreed with
History of Present Illness
History of Present Illness:
5-year-old female past medical history of hypertension hyperlipidemia, previous stroke, end-stage renal disease Monday dialysis diabetes presenting to the emergency department today with concerns of chest pain shortness of breath
worsening over the past 10 days. Saw corporate strategy associate today but was sent in to the ER for further assessment. Cardiology recommending echo and cardiac catheterization. Does have a new murmur as well.
Past History
Past History
ED Past Medical History: CVA (Visual issues), HTN, Hypercholesterolemia, IDDM, Renal failure (M-W-F dialysis) and Other (Headaches. Neuropathy, Colitis, )
ED Past Surgical History: Cholecystectomy and Other (AV fistula, Right eye implant)
Social History
Tobacco: Non-smoker
Alcohol: None
Drug: None
Personal:
Living: with family
Employment: Retired
Family History
Family History: Diabetes
Review of Systems
Review of Systems
Allergies reviewed?: Yes
All Other Systems: ROS reviewed and negative except as documented in HPI and ROS
Phy Exam
Physical Exam
Physical Exam:
GENERAL: Alert , in no apparent distress
EYE: pupils equal and reactive
NECK: Supple, no significant adenopathy.
ENT: o/p clr, mmm.
CARDIAC: Systolic murmur 3 out of 6 regular rate and rhythm .
LUNGS: Clear breath sounds bilaterally, no acute respiratory distress, no wheezes/rales/rhonchi
ABDOMEN: Soft, without focal tenderness, no r/g, no cvat
NEUROLOGICAL: Alert and oriented, no focal neuro deficits
SKIN: Warm and dry, skin intact.
MUSCULOSKELETAL: No edema, well perfused.
PSYCH: Normal and appropriate interaction.
Scores
Heart Score for Chest Pain Patients
STEMI patient?: No
History: Moderately Suspicious
ECG: Nonspecific Repolarization
Age: >/= 65 years
Risk Factors: >/= 3 Risk Factors or History of CAD
Troponin: </= Normal Limit
Heart Score for Chest Pain Patients: 6
Heart Score Risk: 20.3% MACE over next 6 weeks
Course
Orders/Labs/Results
Orders:
Orders
05/02/24 16:21
Electrocardiogram (*1) Urgent
Reason for Study: Chest Pain
EKG- Treatment ONCE
05/02/24 20:01
Complete Blood Count/With Diff Urgent
Comprehensive Metabolic Panel Urgent
Prothrombin Time Urgent
Troponin I Urgent
05/02/24 20:03
CXR2 [CR Chest - 2 Views ] Urgent
Comment:
Reason For Exam: cp
05/02/24 20:05
Aspirin 325 mg PO NOW STA
05/02/24 20:14
EKG [Electrocardiogram (*1)] Urgent
Reason for Study: Chest Pain
EKG- Treatment ONCE
Abnormal Lab Results
05/02/24
20:01
WBC 12.0 H 10^3/uL
(4.8-10.8)
RBC 3.09 L 10^6/uL
(4.20-5.40)
Hgb 9.2 L g/dL
(12.0-16.0)
Hct 28.3 L %
(37.0-47.0)
MCHC 32.5 L g/dL
(33.0-37.0)
RDW 15.1 H %
(11.5-14.5)
Abs Immat Gran (auto) 0.1 H 10^3/uL
(0-0.05)
Absolute Neuts (auto) 7.1 H 10^3/uL
(1.4-6.5)
Absolute Monos (auto) 1.4 H 10^3/uL
(0.1-0.6)
Immature Gran % 0.6 H %
(0-0.5)
Monocytes % 11.3 H %
(1.7-9.3)
Chloride 93 L mmol/L
(98-107)
BUN 50 H mg/dl
(7-17)
Creatinine 8.2 H* mg/dL
(0.6-1.0)
Glucose 201 H mg/dl
(70-99)
Calcium 10.9 H mg/dl
(8.4-10.2)
AST 44 H U/L
(14-36)
ALT 44 H U/L
(0-35)
Alkaline Phosphatase 207 H U/L
(38-126)
Total Protein 9.8 H g/dl
(6.3-8.2)
05/02/24 20:01
05/02/24 20:01
Vital Signs
Initial and Last Documented VS:
Initial Vital Signs
Temp Pulse Resp BP Pulse Ox
98.4 F 85 16 157/59 99
05/02/24 16:15 05/02/24 16:15 05/02/24 16:15 05/02/24 16:15 05/02/24 16:15
Last Documented Vital Signs
Temp Pulse Resp BP Pulse Ox
98.3 F 84 17 175/56 94
05/02/24 19:51 05/02/24 20:15 05/02/24 19:51 05/02/24 19:51 05/02/24 20:15
MDM/Problems Addressed
MDM/Problems Addressed:
5-year-old female presenting to the emergency department today with concerns of progressive chest pain over the past 10 days or so. Seen by cardiology as an outpatient but sent her into the ER for assessment. She was here for similar symptoms 8
days ago. [place] concern of a new murmur despite normal echo 1 month ago. They are recommending echo and catheterization tomorrow. Here patient was given aspirin. Generally well-appearing here in no distress.
*Critical Care Note
Total Time (30-74mins, 75-104mins- exclusive of procedures): Not Applicable
ED Attending Note
-
Portions of this chart may have been created with voice recognition software.� Occasional wrong word or��sound alike� substitutions may have occurred due to the inherent limitations of voice recognition software.
Discharge Plan
Departure
Patient Disposition: Admit
Date of Disposition: 05/02/24
Time of Disposition: 20:54
Admit to: Telemetry
Admit to doctor: Severo
Presentation/result/management discussed w/ accepting MD/DO: Hospitalist
Patient with high blood pressure during this ER visit?: No
Condition: Good
Covid-19: Not Applicable
Discharge Problem:
Chest pain, Systolic murmur
Prescriptions:
No Action
cholecalciferol (vitamin D3) [Vitamin D3] 25 mcg (1,000 unit) capsule
25 mcg PO DAILY
calcium acetate(phosphat bind) 667 mg capsule
1,334 mg PO MEALS
Veltassa 16.8 gram powder in packet
16.8 g PO DAILY
nifedipine 60 mg Tablet Extended Release
60 mg PO BID Qty: 60 0RF
metoprolol tartrate 50 mg Tablet
50 mg PO BID Qty: 60 0RF
insulin NPH and regular human 100 unit/mL (70-30) Suspension
21 unit SC BID
acetaminophen 500 mg Tablet
1,000 mg PO Q6HPRN PRN (Reason: mild pain)
Triphrocaps 1 mg Capsule
1 cap PO DAILY
Interventions
Interventions:
*Risk Screen - Suicide Last Done: 05/02/24 16:15
*General Assessment Last Done: 05/02/24 20:21
*Neglect/Abuse Screening Last Done: 05/02/24 20:21
*ED- Fall Risk Assessment Last Done: 05/02/24 20:21
*ED COVID-19 Vaccine History Last Done: 05/02/24 20:21
Discharge Date and Time
Print Language: GHANAIAN
[2024-05-02 21:14] VITALS: BP 158/49
--- NOTE | 2024-05-02 21:38 | HPS.HSE ---
Family Physician
-
Family Physician: Cal Luque
Chief Complaint
-
Chest Pain
History of Present Illness
Patient is a 68 y/o female past medical history of IDDM, ESRD on HD, Anemia of CKD, and hypertension who presents with chest pain. Family at beside provides additional history and acts as concaver due to language barrier. Patient reports on
going chest pain for the past 10 days. She describes the pain as a tightness that is worsen when laying flat. She reports some difficultly breathing. She denies lower extremity edema. She does not weight herself at home, but per hospital records
her weight is up 17lb since her admission in February. She was seen in the Cardiology office today who noted a new murmur with EXG changes and sent her to the emergency department for evaluation.
Medical History
Past Medical History
Past Medical History: Reports Other
Additional Past Medical History:
ESRD on HD (M-W-F)
DM-II
Hypertension
Anemia of CKD
Persistent Hyperkalemia
Suspected Hepatocellular Carcinoma (patient not aware per family request)
Volume Overload / CHFpEF
Past Surgical History: Reports Other
Additional Past Surgical History:
LUE AVG
Cholecystectomy
R Eye Surgery
Social History
Tobacco: Non-smoker
Alcohol: None
Drug: None
Family History
Family History: Not pertinent
Allergies / Home Medications
Allergies reflects when Allergies were last updated in [employer]
Home Medications with original date entered in [employer]
Allergy/Medication List:
Allergies
Allergy/AdvReac Type Severity Reaction Status Date / Time
No Known Allergies Allergy Verified 05/02/24 19:48
Home Medications
calcium acetate(phosphat bind) 667 mg capsule 1,334 mg PO MEALS supplement (renal) 02/25/22
cholecalciferol (vitamin D3) 25 mcg (1,000 unit) capsule (Vitamin D3) 25 mcg PO DAILY Supplement 02/25/22
patiromer calcium sorbitex 16.8 gram oral powder packet (Veltassa) 16.8 g PO DAILY hyperkalemia (high potassium) 02/25/22
nifedipine 60 mg tablet,extended release 60 mg PO BID #60 tabs 02/27/22
metoprolol tartrate 50 mg tablet 50 mg PO BID #60 tabs 03/20/24
acetaminophen 500 mg tablet 1,000 mg PO Q6HPRN PRN mild pain 04/24/24
insulin human U-100 NPH-regulr 70-30 mix 100 unit/mL subcutaneous susp 21 unit SC BID 04/24/24
vitamin B complex and vitamin C no.20-folic acid 1 mg capsule (Triphrocaps) 1 cap PO DAILY 04/24/24
Review of Systems
-
Unable to obtain full review of systems at this time due to: Language Barrier
Physical Exam
Vital Signs
Vital Signs
Temp Pulse Resp BP Pulse Ox
98.3 F 78 17 158/49 94
05/02/24 19:51 05/02/24 21:15 05/02/24 19:51 05/02/24 21:14 05/02/24 21:15
Physical Exam
General: Comfortable and Conversant
HEENT: Anicteric and Moist mucous membranes
Respiratory: Wheezes (Few scattered), Rales (Faint bilaterally) and Non Labored Respirations
Cardiac: S1/S2, Regular Rhythm and Murmur (3/6 systolic murmur)
GI: Soft
Rectal: Deferred by Provider
Musculoskeletal: No Clubbing, No Cyanosis and No Edema
Skin: Warm and Dry
Neuro: Awake, Alert, Oriented and Nonfocal/grossly intact
Psych: Calm
Laboratory Results
-
05/02/24 20:01
05/02/24 20:01
Laboratory Results
PT 13.2 Sec (11.4-14.6) 05/02/24 20:01
INR 0.95 05/02/24 20:01
Total Bilirubin 0.7 mg/dl (0.2-1.3) 05/02/24 20:
AST 44 U/L (14-36) H 05/02/24 20:01
ALT 44 U/L (0-35) H 05/02/24 20:01
Alkaline Phosphatase 207 U/L (38-126) H 05/02/24 20:01
Troponin I < 0.012 ng/ml 05/02/24 20:01
Data Reviewed
-
Lab Data: Labs Reviewed by me
Old Records: Reviewed
Impression/Plan
-
Chest Pain in setting of new murmur and ECG changes, clinical concern for new cardiac event
-Cardiology planning for cardiac cath tomorrow
-Check Echo
-Add nitro SL PRN
ESRD on HD
-Consult Nephrology
-Suspect component of volume overload given weight gain - Plan to manage volume with dialysis
-Resume PhosLo when diet resume
Diabetes Mellitus, Type II
-HgbA1c 7.3 in Feb 2024
-Insulin on hold while NPO for cardiac cath
-Monitor sugars and continue coverage insulin
Essential Hypertension
-Continue nifedipine and metoprolol
Anemia of Chronic Disease
-Hgb overall stable
DVT proph: SC Heparin
Code Status: Full Code
--- NOTE | 2024-05-02 21:44 | W.PN.UPDATE ---
Update Note
Progress Note Update
Patient seen in conjunction with CARLOS MANUEL. I agree with the findings on history and physical. I concur with the assessment and plan.
This is a 68-year-old female with past medical history significant for insulin-dependent diabetes, ESRD on hemodialysis Monday, hypertension, anemia, history of recurrent pulmonary edema who presents to the emergency department
after follow-up at cardiology clinic for intermittent chest pain. Patient reports flashes of chest pain for the last 10 days. It substernal and usually occurs or exacerbated by laying flat. Is associated with chest tightness. She denies any
wheezing. She reports mild shortness of breath. She denies any recent lower extremity edema and she has been compliant with her medications. She denies any nausea vomiting or diaphoresis. She denies any cough fevers or chills. She had follow-up
with cardiology today wound noted a new systolic murmur and the setting of chest pain was referred to the ED for further evaluation and additional ischemic testing and imaging in the morning.
Patient also endorsed about 1 to 2 days of bilateral lower extremity tingling and numbness. On exam she is neurologically intact without any determinable sensory losses except for mild decrease in proprioception on moving the toes. Did auscultate
a blowing holosystolic [facility]ur [facility]
Initial vital signs notable for blood pressure of 170/56 with a pulse of 84 and she was satting 94% on room air. She was afebrile. ECG shows a normal sinus rhythm at a rate of 85 with T wave inversions in leads V5 and 6. This is unchanged from
prior. Troponin was negative at 0.012. Chest x-ray is clear. The rest of labs are stable with a hemoglobin of 9.2 similar to prior. She had a white count of 12 and a platelet count of 359.
Assessment and plan
68-year-old with multiple comorbidities for ischemic heart disease including ESRD on hemodialysis, insulin-dependent diabetes and hypertension who presents with 10 days of intermittent chest pain and has a unchanged EKG and negative troponin. Seen
by cardiology and found to have a new systolic murmur. Chest x-ray shows no pulmonary edema and she has no peripheral edema. Her chest pain is possibly ischemic versus possible chf or reflux. Following cardiology recs.
- admit to telemetry
-NPO after midnight
- ntg prn cp
- s/p asa in ED
- echo in am
- cardiology consult for possible cath.
DM II
- NPO, sliding scale insulin for now
HTN
- continue metoprolol and nifedipine
ESRD - On HD M/W/F
- labs ok, no evidence of acute volume overload
- nephrology consult
- continue phos binding when tolerating po
- continue veltassa
DVT PPX - heparin sq
Code status - Full Code
[2024-05-02 22:00] VITALS: BP 163/48
[2024-05-02 23:01] VITALS: BP 176/66; BMI 26.3
[2024-05-03] VITALS (15 sets, daily range): BP systolic 107–204; BP diastolic 51–89; BMI 26.2
[2024-05-03] MEDS: HEPARIN 5000 UNITS SC ×4 (00:08→23:08)
[2024-05-03 00:15] LABS: Glucose - Point of Care 192 mg/dl (70-99)
--- NOTE | 2024-05-03 01:28 | PTCARENOTE ---
Patients blood pressure was 176/66 when she arrived at [address] [place] [address]. Manual recheck: 172/68. Messaged CARLOS MANUEL. Patient has HD scheduled for today. No new orders at this time.
--- NOTE | 2024-05-03 07:15 | W.PN.HOSP.TC ---
Today's Communication/Plan
-
Cardiac cath findings noted -- elevated LVEDP and nonobstructive coronary artery disease
Extremely high blood pressure -- nephrology may to do more ultrafiltration tomorrow during dialysis
Assessment / Plan
Assessment / Plan
Physical Exam
General: Not in acute distress
HEENT: Normocephalic. Moist mucous membranes
Respiratory: Clear to Auscultation Bilaterally
Cardiac: S1/S2, Regular Rhythm and Murmur (3/6 systolic murmur)
GI: Soft. Nontender. Positive bowel sounds.
Musculoskeletal: No Cyanosis and No Edema
Skin: Warm and Dry
Neuro: Awake, Alert, Oriented and Nonfocal/grossly intact
Psych: Calm
Assessment/Plan
68 y/o female with past medical history of IDDM, ESRD on HD, Anemia of CKD, and hypertension who presented with chest pain. Family at [facility] provided additional history and acted as sign language interpreter due to language barrier. Patient reported on going
chest pain for the past 10 days. She described the pain as a tightness that is worsen when laying flat. She reported some difficultly breathing. She denied lower extremity edema. She does not weight herself at home, but per hospital records her
weight is up 17lb since her admission in February. She was seen in the Cardiology office on 05/02/24 and they noted a new murmur with EKG changes and sent her to the emergency department for evaluation.
Recurrent chest pain in setting of new murmur and ECG changes, clinical concern for new cardiac event
Dyspnea
-Cardiology performed cardiac cath today, and it showed: nonobstructive coronary artery disease as described in a right dominant system and severe systemic hypertension and elevated LVEDP
-Cardiology recommended: secondary prevention of coronary artery disease and treatment of hypertension and possible microvascular angina
-Echo with normal right ventricular size and function, LVEF 60 to 65%
-Patient on room air, not tachycardic
-Add nitro SL PRN
ESRD on HD
-Consult Nephrology
-Suspect component of volume overload given weight gain - Plan to manage volume with dialysis
-Resume PhosLo when diet resume
-Resume anti HTN meds post HD
-Resume phos binder
-Strict renal diet and FR
-Lokelma in place of Veltasa
Diabetes Mellitus, Type II
-HgbA1c 7.3 in Feb 2024
-Monitor sugars and continue coverage insulin
Essential Hypertension
-Continue nifedipine and metoprolol
-Resume anti HTN meds after dialysis
Recent Hospitalization with Hypertensive Urgency
Hyperlipidemia
Anemia of Chronic Disease
-Hgb overall stable
History of CVA
DVT proph: SC Heparin
Code Status: Full Code
Anticipated Discharge: Within 24 hours
Subjective/Interval History
-
Date of Service: May 03, 2024
Patient was seen and examined. She reported some chest pain, otherwise denied any other complaints.
Objective Data
-
Labs:
Laboratory Results
05/02/24 05/03/24
20:01 06:00
WBC 12.0 H Pending
Hgb 9.2 L Pending
Hct 28.3 L Pending
Plt Count 358 Pending
PT 13.2
INR 0.95
Sodium 138 Pending
Potassium 5.0 Pending
Chloride 93 L Pending
Carbon Dioxide 29 Pending
BUN 50 H Pending
Creatinine 8.2 H* Pending
Glucose 201 H Pending
Calcium 10.9 H Pending
Total Bilirubin 0.7
AST 44 H
ALT 44 H
Alkaline Phosphatase 207 H
Vital Signs:
Vital Signs
Temp Pulse Resp BP Pulse Ox
98.3 F 79 16 107/69 97
05/03/24 03:41 05/03/24 03:41 05/03/24 03:41 05/03/24 03:41 05/03/24 03:41
[2024-05-03 07:38] LABS: Glucose - Point of Care 162 mg/dl (70-99)
--- NOTE | 2024-05-03 08:14 | W.PN.CD ---
Addendum entered and electronically signed by Tavo Fowler MD 05/03/24 09:26:
Discussion with patient and her daughter. Daughter acting as interpreter deaf. Reviewed issues related to cardiac catheterization reviewed procedure. Patient in agreement. Also had discussion with Nephrology. Would plan for catheterization this
morning and dialysis later today.
.
Also would list anemia on problem list. Chronic. Will continue to monitor.
Original Note:
Today's Communication / Plan
-
Plan as noted
Will need to coordinate timing of catheterization with interventional cardiology and nephrology.
Impression / Plan
-
61-rsbg-Psacixd-speaking old woman with ESRD on HD, diabetes, hypertension, hyperlipidemia, history of CVA who had recently been in the hospital with hypertensive urgency and some intermittent chest discomfort. Patient seen in the office by
Annemarie. Concern raised due to patient's recurrent chest discomfort patient also with murmur noted on exam. Stable overnight not currently having chest pain ECG shows sinus rhythm with nonspecific T wave abnormality which is consistent with prior
ECGs troponins are negative.
.
Chest discomfort. Exact etiology unclear despite chest discomfort troponins negative. However patient with significant risk factors for coronary artery disease including diabetes, hypertension, hyperlipidemia and ESRD
-Plan for cardiac catheterization. Timing will need to be coordinated with dialysis
.
Murmur. As outpatient concern regarding systolic murmur. Patient has left arm fistula with radiation of bruit from fistula extending across the chest. Difficult to discern underlying systolic murmur versus just radiation of bruit across her chest
there is a low sound at apex suggestive of systolic murmur. Follow-up images were obtained which show normal left ventricular function mild mitral regurgitation mild tricuspid regurgitation estimated PA pressure of 44 to 49 mmHg overall findings
are similar to the prior study PA pressures are mildly higher.
.
ESRD. Management directed by nephrology
.
Hypertension. Currently stable monitor on current therapy
Hyperlipidemia. Statin
Diabetes. Management as directed by primary team
Physical Exam
Vital Signs/Labs
Vital Signs
Temp Pulse Resp BP Pulse Ox
98.4 F 84 18 118/63 97
05/03/24 07:13 05/03/24 07:13 05/03/24 07:13 05/03/24 07:13 05/03/24 07:13
05/02/24 05/03/24 05/04/24
06:59 06:59 06:59
Actual Weight 62.868 kg
PT 13.2 Sec (11.4-14.6) 05/02/24 20:01
INR 0.95 05/02/24 20:01
LAB Results
05/02/24
20:01
Troponin I < 0.012
Physical Exam
Constitutional: No acute distress
Cardiovascular: Rhythm & rate is regular and Other (Patient has bruit from left arm fistula which is extends from shoulder across the chest. Difficult to discern the bruit from underlying systolic murmur in this patient. There is a softer systolic
sound at the apex suggestive of systolic murmur.)
Respiratory: Lungs clear to auscul. and Wheeze Absent
GI: Soft, Non tender and Normal bowel sounds
Neuro/Psych: Alert
Other: Other
Data Reviewed
-
Date of Service: May 03, 2024
Medical Decision Making: Reviewed Test Results
X-Ray/CT/US/MRI/NUC/PET: Report Reviewed by me
Medical Tests (PFT, Pathology etc): Report Reviewed by me
Labs: Labs Reviewed by me
[2024-05-03] MEDS: NOVOLOG FLEXPEN-MODERATE RESISTANCE SC (09:10)
[2024-05-03] MEDS: LOPRESSOR 50 MG PO ×2 (09:11→20:25)
[2024-05-03] MEDS: PROCARDIA XL (EXTENDED RELEASE) PO (09:12)
[2024-05-03] MEDS: LOW STRENGTH ASPIRIN 81 MG PO (09:44)
[2024-05-03 10:24] LABS: Hematocrit 28.3 % (37.0-47.0); Mean Corp Hgb Conc. 31.8 g/dL (33.0-37.0); Mean Corpuscular Hgb 28.8 pg (27.0-31.0); Mean Corpuscular Volume 90.7 fL (81.0-99.0); Mean Platelet Volume 9.9 fL (7.4-10.4); Platelet Count 359 10^3/uL (130-400); Red Blood Cell Count 3.12 10^6/uL (4.20-5.40); Red Cell Dist. Width 15.3 % (11.5-14.5); White Blood Cell Count 9.9 10^3/uL (4.8-10.8)
[2024-05-03 10:38] LABS: Blood Urea Nitrogen 56 mg/dl (7-17); Calcium 9.7 mg/dl (8.4-10.2); Carbon Dioxide 27 mmol/L (22-30); Chloride 95 mmol/L (98-107); Estimated Creatinine Clearance 5 ml/min; Glucose 195 mg/dl (70-99); HDL Cholesterol 36 mg/dl; LDL Cholesterol, Calculated 91 mg/dl; Magnesium 2.5 mg/dl (1.6-2.3); Phosphorus 4.5 mg/dl (2.5-4.5); Potassium 4.9 mmol/L (3.5-5.1); Sodium 136 mmol/L (135-145); Total Cholesterol 195 mg/dl (50-199); Triglyceride 343 mg/dl (10-149); Very Low Density Lipoprotein 68 mg/dl (0-30); eGFR 4.17
[2024-05-03 11:24] LABS: Hepatitis C Antibody Negative (Negative)
[2024-05-03 12:05] LABS: Glucose - Point of Care 172 mg/dl (70-99)
--- NOTE | 2024-05-03 12:06 | ITS.CL.PN ---
Com Writer - Procedure Note
Procedure
Procedure Note:
CARDIAC CATHETERIZATION REPORT
Date of Procedure: 05/03/2024
Referring: Dr. Jeremiah Sharpe MD
Indication: chest pain, ACS
PROCEDURE(S)
1. left heart catheterization
2. coronary angiography
ACCESS: 6F right femoral artery (closure: 6F Angioseal)
CATHETERS
1. 6F JR4
2. 6F JL3.5
MODERATE SEDATION: 25 minutes of moderate sedation was utilized. An independent medical records custodian was present to assist with and help manage the patient's level of consciousness and physiologic status.
ULTRASOUND GUIDED VASCULAR ACCESS (right femoral artery): Ultrasound was utilized for vascular access. The vessel was visualized under ultrasound and noted to be patent. An image of the vessel was stored permanently in the patient's medical record.
Under direct ultrasound guidance, vascular access was obtained using a modified Seldinger technique and a 6 Romanian sheath was placed.
HEMODYNAMIC DATA
LV 220/20 (EDP 31) mmHg
AO 214/74 (mean 128) mmHg
CORONARY ANGIOGRAPHY
Dominance: Right
LM: Large and normal
LAD: Large vessel giving rise to a single moderate caliber diagonal branch and wrapping around the apex. There is a focal 40% stenosis just after the takeoff of D1 and otherwise trivial luminal irregularities.
LCx: Large vessel giving rise to a high rising medium caliber OM1, large OM2, and small LPL branch. There are trivial luminal irregularities only.
RCA: Large vessel giving rise to medium caliber RPDA and several small RPL branches. There are trivial luminal irregularities only.
RADIATION: dose 179 mGy; DAP 13.3 Gy*cm2; fluoroscopy time 1.6 min
CONCLUSIONS
1. Nonobstructive coronary artery disease as described in a right dominant system
2. Severe systemic hypertension and elevated LVEDP
RECOMMENDATIONS
1. Secondary prevention of coronary artery disease
2. Treatment of hypertension and possible microvascular angina
Copy to: Dr. Armen Sharpe MD (industrial relations manager); Dr. Cal Luque DO (PCP)
Signed: Perry Cronin MD, PhD
--- NOTE | 2024-05-03 12:38 | W.CON.NEPH ---
Consultation
-
Date/Time Consultation Requested: 05/02/24 5715
Date/Time Consultation Performed: 05/03/24 1230
Requesting Provider: Matthew Elkins MD
Performing Provider: Maureen Pritchard
Reason for Consultation: ESRD
Medical History
-
Chief Complaint: CP
History of Present Illness:
68y F with PMH significant for ESRD on HD MWF at [facility], h/o vol overload, hypertension on Nifedipine, hydralazine, chr hyperkalemia on Veltasa, hyperphosphatemia on calcium acetate and DM-II on insulin who presents to ED complaining of
chest pain sent by cardiology. Pt was at in Feb for vol overload and CP, which improved with HD and UF. She went for follow-up at cardiology clinic for intermittent chest pain.Cardiology noted with the loud murmur and change in the EKG hence sent
to the ER. Her echocardiogram today shows normal EF. Underwent left heart catheter today shows no obstructive coronary however has severe hypertension systolic in 200 with elevated LVEDP 31. Patient reports having some shortness of breath
overnight which has improved. Currently no chest pain. No nausea or vomiting or headache. She denies any recent lower extremity edema and she has been compliant with her medications. Grand daughter helped in translation.
Past Medical History
ESRD on HD (M-W-F)_[facility]
Hypertension
Anemia of CKD
Persistent Hyperkalemia
Suspected Hepatocellular Carcinoma (patient not aware per family request)
Volume Overload / CHFpEF
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
Diabetes mellitus, multiple microvascular complications, neuropathy, retinopathy and nephropathy.
History of CVA.
Cholecystectomy.
Chronic headaches.
Past Surgical History: Other (LUE AVG Cholecystectomy R Eye Surgery)
Social History
She resides at home with family. She does not smoke nor consume alcohol.
Family History
Reportedly with CKD, hypertension, and diabetes mellitus.
Family History: Not Pertinent
Allergies / Home Medications
Allergy/AdvReac Type Severity Reaction Status Date / Time
No Known Allergies Allergy Verified 05/02/24 19:48
�Medication �Instructions �Recorded �Confirmed �Type
calcium acetate(phosphat bind) 667 1,334 mg PO MEALS supplement 02/25/22 05/02/24 History
mg capsule (renal)
cholecalciferol (vitamin D3) 25 25 mcg PO DAILY Supplement 02/25/22 05/02/24 History
mcg (1,000 unit) capsule (Vitamin
D3)
patiromer calcium sorbitex 16.8 16.8 g PO DAILY hyperkalemia (high 02/25/22 05/02/24 History
gram oral powder packet (Veltassa) potassium)
nifedipine 60 mg tablet,extended 60 mg PO BID #60 tabs 02/27/22 05/02/24 Rx
release
metoprolol tartrate 50 mg tablet 50 mg PO BID #60 tabs 03/20/24 05/02/24 Rx
acetaminophen 500 mg tablet 1,000 mg PO Q6HPRN PRN mild pain 04/24/24 05/02/24 History
insulin human U-100 NPH-regulr 21 unit SC BID Diabetes 04/24/24 05/02/24 History
70-30 mix 100 unit/mL subcutaneous
susp
vitamin B complex and vitamin C 1 cap PO DAILY Supplement 04/24/24 05/02/24 History
no.20-folic acid 1 mg capsule
(Triphrocaps)
Review of Systems
-
All complete 12 point ROS have been inquired and found negative other than stated in HPI
Physical Exam
Vital Signs
Vital Signs
Temp Pulse Resp BP Pulse Ox
98.4 F 69 16 203/74 96
05/03/24 12:15 05/03/24 12:15 05/03/24 12:15 05/03/24 12:15 05/03/24 12:15
Lab Results
WBC 9.9 10^3/uL (4.8-10.8) 05/03/24 10:11
RBC 3.12 10^6/uL (4.20-5.40) L 05/03/24 10:11
Hgb 9.0 g/dL (12.0-16.0) L 05/03/24 10:11
Hct 28.3 % (37.0-47.0) L 05/03/24 10:11
Plt Count 359 10^3/uL (130-400) 05/03/24 10:11
Sodium 136 mmol/L (135-145) 05/03/24 10:11
Potassium 4.9 mmol/L (3.5-5.1) 05/03/24 10:11
Chloride 95 mmol/L (98-107) L 05/03/24 10:11
Carbon Dioxide 27 mmol/L (22-30) 05/03/24 10:11
BUN 56 mg/dl (7-17) H 05/03/24 10:11
Creatinine 9.3 mg/dL (0.6-1.0) H* 05/03/24 10:11
eGFR 4.17 05/03/24 10:11
Glucose 195 mg/dl (70-99) H 05/03/24 10:11
Calcium 9.7 mg/dl (8.4-10.2) 05/03/24 10:11
Phosphorus 4.5 mg/dl (2.5-4.5) 05/03/24 10:11
Albumin 4.7 g/dl (3.5-5.0) 05/02/24 20:01
Physical Exam
General: Awake, Alert, Oriented, AOx3, No Distress and Nontoxic
HEENT: EOMI, Anicteric and Other (difficult to assess JVD with thick neck)
Respiratory: Crackels, Normal Excursion and Nonlabored Respirations
Cardiac: S1/S2 and Murmur (mitral and aortic area)
Breast: Deferred by me
Abdomen: Soft, Nontender and Nondistended
Musculoskeletal: No Cyanosis and No Edema
Skin: No Rash
Neuro: Nonfocal/Grossly Intact
Psych: Mood/afflect pleasant, Insight/judgement good and Appropriate
Vascular Access: AVG
Data Reviewed
-
Radiology: Report Reviewed by me, Discussed with Patient and Discussed with Family
Labs: Labs Reviewed by me, Discussed with Patient and Discussed with Family
Assessment/Plan
-
IMP:
Chest Pain in setting of new murmur and ECG changes s/p cath non obst cad
ESRD on HD [facility] [place]
chr Hyperkalemia
Anemia of CKD
IDDM-II
Abnormal LFTs
Possible hepatocellular carcinoma.(patient not aware per family request)
h/o CVA
Hyperphosphatemia
left UE AVG
Plan:
A/w CP, s/p cath no obst cad however high LVEDP suggest hypervolemia
HD now, orders provided
may need extra UF tomorrow based on symp
UF as much tolerates, need to lower EDW
resume anti HTN meds post HD
resume phos binder
strict renal diet and FR
Lokelma in place of Veltasa
d/w pt and nursing
--- NOTE | 2024-05-03 12:52 | CM ---
Reviewed the chart notes and spoke with the patient and her family member who provided translation. The patient reports living in a first floor apartment with three steps to enter. The patient reports receiving HD MWF at [facility]
[place]. The patient's family members provide transportation to HD and the patient is transported home by [facility]. The patient has had [facility] in the past, but no SNF. The patient confirmed her pharmacy of choice is the
[place] [facility]. CM continues to be available to patient/family and is monitoring medical plan for needs at discharge.
Plan: Discharge to home when medically stable. No needs anticipated. Patient currently receiving HD.
[2024-05-03] MEDS: NOVOLOG FLEXPEN-MODERATE RESISTANCE 1 UNITS SC ×2 (13:53→18:05)
[2024-05-03] MEDS: FLEXBUMIN 25% FOR HEMODIALYSIS 12.5 GRAMS IV ×2 (13:59→15:19)
[2024-05-03] MEDS: RETACRIT 3000 UNITS IV (14:12)
[2024-05-03] MEDS: MANNITOL 25% 12.5 GRAMS IV (15:32)
[2024-05-03] MEDS: TYLENOL 650 MG PO (15:41)
[2024-05-03 16:21] LABS: Glucose - Point of Care 175 mg/dl (70-99)
--- NOTE | 2024-05-03 17:08 | W.PN.NEPH.HD ---
Assessment
-
Seen on HD. no complaints. VSS, access ok
below EDW
Progress Note - Hemodialysis
-
Date of Service: May 03, 2024
Duration: 30 minutes and 3 hours
Potassium Bath: 2
Calcium Bath: 2.5
Opti-Dialyzer: 160
Ultrafiltration: Other (3kg)
Blood Flow: 400
Dialysate Flow: 600
Heparin: 0
EPO: 3000 units
[2024-05-03] MEDS: PHOSLO 1334 MG PO (18:05)
--- NOTE | 2024-05-03 18:15 | PTCARENOTE ---
Pt ordered routine EKG for QTc monitoring. Unable to do at this time, as pt is eating her dinner. Night Nurse notify pt needs routine EKG as ordered. Pt denies pain at this time. plan of care ongoing.
[2024-05-03] MEDS: PROCARDIA XL (EXTENDED RELEASE) 60 MG PO (20:25)
[2024-05-03 21:46] LABS: Glucose - Point of Care 228 mg/dl (70-99)
[2024-05-03] MEDS: MELATONIN 5 MG PO (22:16)
[2024-05-04 03:25] VITALS: BP 114/77
[2024-05-04 06:00] VITALS: BMI 24.9
[2024-05-04 07:09] LABS: Hematocrit 29.4 % (37.0-47.0); Hemoglobin 9.9 g/dL (12.0-16.0); Mean Corp Hgb Conc. 33.7 g/dL (33.0-37.0); Mean Corpuscular Hgb 30.1 pg (27.0-31.0); Mean Corpuscular Volume 89.4 fL (81.0-99.0); Mean Platelet Volume 10.1 fL (7.4-10.4); Platelet Count 381 10^3/uL (130-400); Red Blood Cell Count 3.29 10^6/uL (4.20-5.40); Red Cell Dist. Width 15.2 % (11.5-14.5)
[2024-05-04 07:42] LABS: Blood Urea Nitrogen 41 mg/dl (7-17); Calcium 9.9 mg/dl (8.4-10.2); Carbon Dioxide 26 mmol/L (22-30); Chloride 91 mmol/L (98-107); Estimated Creatinine Clearance 6 ml/min; Glucose 236 mg/dl (70-99); Sodium 134 mmol/L (135-145); eGFR 6.41
[2024-05-04 07:50] VITALS: BP 145/49
[2024-05-04 07:51] LABS: Glucose - Point of Care 229 mg/dl (70-99)
[2024-05-04] MEDS: NOVOLOG FLEXPEN-MODERATE RESISTANCE 3 UNITS SC (08:51)
[2024-05-04] MEDS: LOPRESSOR 50 MG PO (08:53)
[2024-05-04] MEDS: PROCARDIA XL (EXTENDED RELEASE) 60 MG PO (08:54)
[2024-05-04] MEDS: HEPARIN 5000 UNITS SC (08:54)
[2024-05-04] MEDS: PHOSLO 1334 MG PO ×2 (08:54→13:06)
[2024-05-04] MEDS: LOW STRENGTH ASPIRIN 81 MG PO (08:54)
--- NOTE | 2024-05-04 10:27 | W.PN.NEPH.PH ---
Today's Communication / Plan
-
gabapentin
Assessment/Plan
-
IMP:
Chest Pain in setting of new murmur and ECG changes s/p cath non obst cad
ESRD on HD [facility]
chr Hyperkalemia
Anemia of CKD
IDDM-II
Abnormal LFTs
Possible hepatocellular carcinoma.(patient not aware per family request)
h/o CVA
Hyperphosphatemia
left UE AVG
Plan:
HD monday
gabapentin
continue lokelma
-
-
Date of Service: May 04, 2024
CC / HPI / ROS
-
Chief Complaint:
ESRD
History of Present Illness:
tolerated HD yesterday
BP stable
no CP
Review of Systems:
no SOB
RLS sxs
Labs
-
Labs:
WBC 12.0 10^3/uL (4.8-10.8) H 05/04/24 06:36
RBC 3.29 10^6/uL (4.20-5.40) L 05/04/24 06:36
Hgb 9.9 g/dL (12.0-16.0) L 05/04/24 06:36
Hct 29.4 % (37.0-47.0) L 05/04/24 06:36
Plt Count 381 10^3/uL (130-400) 05/04/24 06:36
Sodium 134 mmol/L (135-145) L 05/04/24 06:36
Potassium 5.0 mmol/L (3.5-5.1) 05/04/24 06:36
Chloride 91 mmol/L (98-107) L 05/04/24 06:36
Carbon Dioxide 26 mmol/L (22-30) 05/04/24 06:36
BUN 41 mg/dl (7-17) H 05/04/24 06:36
Creatinine 6.5 mg/dL (0.6-1.0) H* 05/04/24 06:36
eGFR 6.41 05/04/24 06:36
Glucose 236 mg/dl (70-99) H 05/04/24 06:36
Calcium 9.9 mg/dl (8.4-10.2) 05/04/24 06:36
Phosphorus 4.5 mg/dl (2.5-4.5) 05/03/24 10:11
Albumin 4.7 g/dl (3.5-5.0) 05/02/24 20:01
Physical Exam
-
Vital Signs:
Vital Signs
Temp Pulse Resp BP Pulse Ox
98.7 F 69 18 145/49 96
05/04/24 07:50 05/04/24 07:50 05/04/24 07:50 05/04/24 07:50 05/04/24 07:50
Cardiovascular:: Regular rate and rhythm
Respiratory:: Bilateral: CTA
Lung Excursion:: Normal
Abdomen:: Nontender and Soft
Bowel Sounds:: Normal
Extremity Edema:: None: Bilateral:
[2024-05-04 11:49] VITALS: BP 133/48
--- NOTE | 2024-05-04 11:57 | W.PN.CD ---
Today's Communication / Plan
-
No clear evidence the chest discomfort represents angina. Negative troponins no evidence of significant obstructive coronary artery disease
Add PPI
Optimize treatment of hypertension
Would continue to monitor blood pressures as nephrology optimizes volume status with HD
Call if additional assistance required
Impression / Plan
-
47-cams-Pgzgyxy-speaking old woman with ESRD on HD, diabetes, hypertension, hyperlipidemia, history of CVA who had recently been in the hospital with hypertensive urgency and some intermittent chest discomfort. Patient seen in the office by
Annemarie. Concern raised due to patient's recurrent chest discomfort patient also with murmur noted on exam. Stable overnight not currently having chest pain ECG shows sinus rhythm with nonspecific T wave abnormality which is consistent with prior
ECGs troponins are negative.
.
Chest discomfort. Exact etiology unclear d
-No evidence of obstructive coronary artery disease by cardiac catheterization. Only trivial luminal irregularities.
-Continue treatment of hypertension
-PPI
.
Murmur. Most prominent sound across chest is likely radiation of bruit from fistula. Echocardiogram with normal LV function, mild MR and mild TR.
.
ESRD. Management directed by nephrology
-Optimization of volume status and assessment of hypertension as directed by nephrology
.
Hypertension. Continue to optimize treatment. Blood pressure controlled may be improved as dialysis optimized and patient felt to be a dry weight
-Continued assessment as directed by nephrology
Hyperlipidemia. Statin
Diabetes. Management as directed by primary team
Physical Exam
Vital Signs/Labs
Vital Signs
Temp Pulse Resp BP Pulse Ox
98.7 F 69 18 145/49 96
05/04/24 07:50 05/04/24 07:50 05/04/24 07:50 05/04/24 07:50 05/04/24 07:50
05/03/24 05/04/24 05/05/24
06:59 06:59 06:59
Actual Weight 62.868 kg 59.676 kg
05/04/24 06:36
05/04/24 06:36
PT 13.2 Sec (11.4-14.6) 05/02/24 20:01
INR 0.95 05/02/24 20:01
Magnesium 2.5 mg/dl (1.6-2.3) H 05/03/24 10:11
Triglycerides 343 mg/dl (10-149) H 05/03/24 10:11
LDL Cholesterol, Calc 91 mg/dl 05/03/24 10:11
VLDL Cholesterol, Calc 68 mg/dl (0-30) H 05/03/24 10:11
HDL Cholesterol 36 mg/dl 05/03/24 10:11
LAB Results
05/02/24
20:01
Troponin I < 0.012
Physical Exam
Constitutional: No acute distress
Cardiovascular: Rhythm & rate is regular
Respiratory: Respiratory effort normal
GI: Soft
Neuro/Psych: Alert
Other: Cath Site (fine) and Other
Data Reviewed
-
Date of Service: May 04, 2024
--- NOTE | 2024-05-04 12:30 | W.PN.HOSP.TC ---
Addendum entered and electronically signed by Pratibha Gandhi MD 05/04/24 14:08:
Discussed with renal, okay with discharge.
Total DC time 40 minutes
Original Note:
Today's Communication/Plan
-
possible DC if cleared by renal
Assessment / Plan
Assessment / Plan
HPI: 68 y/o female with past medical history of IDDM, ESRD on HD, Anemia of CKD, and hypertension who presented with chest pain. Family at [facility] provided additional history and acted as mechanical engineering officer due to language barrier. Patient reported on going
chest pain for the past 10 days. She described the pain as a tightness that is worsen when laying flat. She reported some difficultly breathing. She denied lower extremity edema. She does not weight herself at home, but per hospital records her
weight is up 17lb since her admission in February. She was seen in the Cardiology office on 05/02/24 and they noted a new murmur with EKG changes and sent her to the emergency department for evaluation.
Assessment/Plan:
# Recurrent chest pain in setting of new murmur and ECG changes, clinical concern for new cardiac event but was ruled out
s/p cardiac cath 05/03, showed Nonobstructive coronary artery disease in a right dominant system. Severe systemic hypertension and elevated LVEDP
Cardiology recommended secondary prevention of coronary artery disease and treatment of hypertension and possible microvascular angina
Echo with normal right ventricular size and function, LVEF 60 to 65%
Protonix 40 mg daily started, recc outpt eval for dyspepsia masked as chest pain. Informed pt and granddaughter
# ESRD on HD
Suspect component of volume overload given weight gain
Nephrology on board for HD need
# Diabetes Mellitus, Type II
HgbA1c 7.3 in Feb 2024
Monitor sugars and continue coverage insulin
# Essential Hypertension
Continue nifedipine and metoprolol
Resume anti HTN meds after dialysis
# Recent Hospitalization with Hypertensive Urgency
# Hyperlipidemia
# Anemia of Chronic Disease
Hgb overall stable
# History of CVA
DVT proph: SC Heparin
Code Status: Full Code
Dispo: PT eval
DW granddaughter in person
Anticipated Discharge: Within 24 hours
Subjective/Interval History
-
Date of Service: May 04, 2024
Objective Data
-
Labs:
Laboratory Results
05/04/24
06:36
WBC 12.0 H
Hgb 9.9 L
Hct 29.4 L
Plt Count 381
Sodium 134 L
Potassium 5.0
Chloride 91 L
Carbon Dioxide 26
BUN 41 H
Creatinine 6.5 H*
Glucose 236 H
Calcium 9.9
Vital Signs:
Vital Signs
Temp Pulse Resp BP Pulse Ox
37.1 C 69 18 145/49 96
05/04/24 07:50 05/04/24 07:50 05/04/24 07:50 05/04/24 07:50 05/04/24 07:50
I&O
05/03/24 05/04/24 05/05/24
06:59 06:59 06:59
Intake Total 780 / 780
Balance 780 / 780
Review of Systems
-
Unable to obtain full review of systems at this time due to: Language Barrier
History Source: Patient
All other systems: Reviewed and negative
Physical Exam
-
General: Well Developed, Well Nourished, No Apparent Distress and Comfortable
HEENT: Normocephalic and Atraumatic; Negative Oxygen
Respiratory: Clear to Auscultation and Non Labored Respirations; Negative Accessory Resp Muscle Use
Cardiac: Regular Rhythm, S1/S2 and Murmur
GI: Soft, Nontender and Nondistended
Musculoskeletal: No Edema and Other (Left arm AV fistula with good palpable thrill)
Neuro: Awake, Alert and Nonfocal/Grossly Intact
Psych: Calm and Intact Judgement/Insight
Data Reviewed
-
Labs: Labs Reviewed by me
[2024-05-04 12:48] LABS: Glucose - Point of Care 259 mg/dl (70-99)
[2024-05-04] MEDS: NOVOLOG FLEXPEN-MODERATE RESISTANCE 5 UNITS SC (12:58)
[2024-05-04] MEDS: PROTONIX 40 MG PO (13:07)
--- NOTE | 2024-05-04 13:17 | CM ---
Reviewed the chart notes and spoke with the patient and daughter at the bedside. IMM reviewed. CM consult for VN received. Discussed VN services with patient and daughter. Declined at this time. Home with no needs. Daughter providing
transportation.
--- NOTE | 2024-05-04 13:54 | W.DCSUMMARY ---
Discharge Summary
Discharge Data
Date of Admission: 05/02/24
Date of Discharge: 05/04/24
-
Pending Results: No
Hospital Course
Principal Diagnosis:
Recurrent chest pain in setting of new murmur and ECG changes, clinical concern for new cardiac event but was ruled out. Possible dyspepsia.
Chronic Diagnoses:�
ESRD on HD Monday
Insulin-dependent diabetes
Essential Hypertension, continue nifedipine and metoprolol
Hyperlipidemia
Anemia of Chronic Disease
History of stroke
Consultations:�
Nephrology
Cardiology
Procedures:�
Cardiac cath 05/03, showed Nonobstructive coronary artery disease in a right dominant system. Severe systemic hypertension and elevated LVEDP
Clinical course:�
This is a 68 y/o female with past medical history as stated above, who presented with chest pain ongoing for about 10 days.
She was seen in the Cardiology office on 05/02/24 and they noted a new murmur with EKG changes and sent her to the emergency department for evaluation.
Problem 1:
Recurrent chest pain in setting of new murmur and ECG changes, clinical concern for new cardiac event but was ruled out. Possible dyspepsia.
She underwent cardiac cath on 05/03, which showed Nonobstructive coronary artery disease in a right dominant system. Severe systemic hypertension and elevated LVEDP.
Her Echo also noted normal right ventricular size and function, LVEF 60 to 65%.
She was started with baby aspirin which she can continue going forward.
She was started with Protonix 40 mg daily, and was recommended to follow-up with GI outpatient for dyspepsia workup.
She can continue with dialysis with nephrology outpatient.
As for the rest of her medical problems, they were stable during her hospital stay.
Discharge Plan
-
Patient Disposition: Home (Routine Discharge)
Discharge Diagnosis/Procedures: # Recurrent chest pain in setting of new murmur and ECG changes, clinical concern for new cardiac event but was ruled out with cardiac cath;
# possible dyspepsia masked as chest pain.
Condition: Fair
Diet: Low Cholesterol and Diabetic, Carb Controlled
Driving Restrictions: No driving for 24 hours
Activity Restrictions/Additional Instructions:
Follow up with GI doctor outpatient for dyspepsia work up (could mask as chest pain).
Stand Alone Forms: DC Instructions- Cath/EP Lab
Referrals:
Carrie Beaulieu CRNP [Specified Professional Personl] - 05/28/24 10:40 am
Cal Luque DO [Family Provider] - in less than 1 week
Additional Discharge Medication Instructions: Continue baby aspirin
You were started with gabapentin 100 mg at night for neuropathic pain.
You were started with Protonix 40 mg daily for possbile dyspepsia.
Prescriptions:
New
aspirin 81 mg Tablet,Chewable
81 mg PO DAILY Qty: 30 0RF
pantoprazole 40 mg Tablet,Delayed Release (Dr/Ec)
40 mg PO DAILY Qty: 30 0RF
gabapentin 100 mg Capsule
100 mg PO HS Qty: 30 0RF
Continued
cholecalciferol (vitamin D3) [Vitamin D3] 25 mcg (1,000 unit) capsule
25 mcg PO DAILY
calcium acetate(phosphat bind) 667 mg capsule
1,334 mg PO MEALS
Veltassa 16.8 gram powder in packet
16.8 g PO DAILY
nifedipine 60 mg Tablet Extended Release
60 mg PO BID Qty: 60 0RF
metoprolol tartrate 50 mg Tablet
50 mg PO BID Qty: 60 0RF
insulin NPH and regular human 100 unit/mL (70-30) Suspension
21 unit SC BID
acetaminophen 500 mg Tablet
1,000 mg PO Q6HPRN PRN (Reason: mild pain)
Triphrocaps 1 mg Capsule
1 cap PO DAILY
Discharge Orders:
Discharge Patient (As Directed); Ordered 05/04/24
Ordered By: Pratibha Gandhi
Discharge Date and Time
Discharge Date/Time: 05/04/24 13:41
Print Language: MACEDONIAN
== END 2024-05-04 13:41 | disposition home or self-care (01) | DRG 286 ==
LOC: 2 NORTH 22:09
PROVIDERS: Hospitalist; Nurse Practitioner Adult Health; Physician Assistant; Physician Assistant Medical; Specialist; Student in an Organized Health Care Education/Training Program; ADMITTING PHYSICIAN Internal Medicine; ATTENDING PHYSICIAN Internal Medicine; CONSULT PHYSICIAN Internal Medicine; EMERGENCY PHYSICIAN Emergency Medicine; FAMILY PHYSICIAN Family Medicine
PROC: B2111ZZ Fluoroscopy of Multiple Coronary Arteries using Low Osmolar Contrast (ICD-10-PCS; 2024-05-03)
PROC: 4A023N7 Measurement of Cardiac Sampling and Pressure, Left Heart, Percutaneous Approach (ICD-10-PCS; 2024-05-03)
PROC: 5A1D70Z Performance of Urinary Filtration, Intermittent, Less than 6 Hours Per Day (ICD-10-PCS; 2024-05-03)
DX: R07.9 Chest pain, unspecified (principal); N18.6 End stage renal disease; I12.0 Hypertensive chronic kidney disease with stage 5 chronic kidney disease or end stage renal disease; C22.0 Liver cell carcinoma; R01.1 Cardiac murmur, unspecified; E11.22 Type 2 diabetes mellitus with diabetic chronic kidney disease; E78.00 Pure hypercholesterolemia, unspecified; E87.5 Hyperkalemia; E83.39 Other disorders of phosphorus metabolism; I25.10 Atherosclerotic heart disease of native coronary artery without angina pectoris; Z99.2 Dependence on renal dialysis; Z79.4 Long term (current) use of insulin; Z86.73 Personal history of transient ischemic attack (TIA), and cerebral infarction without residual deficits
CPT/HCPCS: 93308; 71046; 80048; 80053; 80061; 82962; 83735; 84100; 84484; 85025; 85027; 85610; 86803; 87070; 93005; 93321; 93325; 93458; 99285; C1760; C1894; P9047; Q5106; Q9967

== ENCOUNTER 2024-06-03 19:49 | Inpatient (IN) | payer OTHER, SELFPAY ==
[2024-06-03] VITALS (12 sets, daily range): BP systolic 154–189; BP diastolic 45–66; BMI 30.1; BMI 26.0
[2024-06-03 16:01] LABS: % Basophils 0.6 % (0-2); % Eosinophils 2.9 % (0-6); % Immature Granulocytes 1.3 % (0-0.5); % Lymphocytes 17.3 % (20.5-51.1); % Monocytes 9.2 % (1.7-9.3); % Neutrophils 68.7 % (42.2-75.2); Absolute Basophils 0.1 10^3/uL (0-0.2); Absolute Eosinophils 0.3 10^3/uL (0-0.7); Absolute Immature Granulocytes 0.2 10^3/uL (0-0.05); Absolute Monocytes 1.1 10^3/uL (0.1-0.6); Absolute Neutrophils 7.8 10^3/uL (1.4-6.5); Hematocrit 27.1 % (37.0-47.0); Mean Corp Hgb Conc. 33.2 g/dL (33.0-37.0); Mean Corpuscular Hgb 30.2 pg (27.0-31.0); Mean Corpuscular Volume 90.9 fL (81.0-99.0); Nucleated Red Blood Cells % 0 %; Platelet Count 411 10^3/uL (130-400); Red Blood Cell Count 2.98 10^6/uL (4.20-5.40); Red Cell Dist. Width 16.3 % (11.5-14.5); White Blood Cell Count 11.4 10^3/uL (4.8-10.8)
[2024-06-03 16:11] LABS: ALT (SGPT) 68 U/L (0-35); AST (SGOT) 63 U/L (14-36); Albumin 4.2 g/dl (3.5-5.0); Alkaline Phosphatase 359 U/L (38-126); Blood Urea Nitrogen 25 mg/dl (7-17); Calcium 9.3 mg/dl (8.4-10.2); Carbon Dioxide 33 mmol/L (22-30); Chloride 94 mmol/L (98-107); Glucose 274 mg/dl (70-99); Sodium 141 mmol/L (135-145); Total Bilirubin 0.5 mg/dl (0.2-1.3); Total Protein 9.4 g/dl (6.3-8.2); eGFR 8.19
[2024-06-03 16:22] LABS: Troponin I 0.219 ng/ml
--- NOTE | 2024-06-03 16:41 | ED.GENMED ---
History of Present Illness
General
Chief Complaint: Chest Pain
Source: patient, records and family
Exam Limitations: none
Time Seen by Provider: 06/03/24 16:28
Nursing documentation reviewed up to this point in time: agreed with
History of Present Illness
History of Present Illness:
68-year-old female with a past medical history of hypertension, hyperlipidemia, ESRD on dialysis (M// schedule, had full session today), insulin-dependent diabetes who presents to the emergency department with her son for evaluation of
chest/scapular pain. Patient reports onset of symptoms last night and have been constant since that time. She reports pain initially in the left scapular region that has migrated towards the left chest. Radiates towards the left shoulder/arm as
well as towards the left jaw. No clear triggering component noted�started while at rest last night and has not been worse with exertion. No relieving factors noted. She has associated shortness of breath. She denies any associated nausea,
vomiting, diaphoresis. No abdominal pain. No cough or fever. Has not had any swelling in the legs although she has had some residual pain in the right leg status post recent cardiac catheterization. She was notably admitted to this hospital a
month ago for chest pain with EKG changes and underwent cardiac catheterization 05/03/[address] Valencia that showed nonobstructive disease.
Past History
Past History
ED Past Medical History: CVA (Visual issues), HTN, Hypercholesterolemia, IDDM, Renal failure (-W- dialysis) and Other (Headaches. Neuropathy, Colitis, )
ED Past Surgical History: Cholecystectomy and Other (AV fistula, Right eye implant)
Social History
Tobacco: Non-smoker
Alcohol: None
Drug: None
Personal:
Living: with family
Employment: Retired
Family History
Family History: Diabetes
Review of Systems
Review of Systems
All Other Systems: ROS reviewed and negative except as documented in HPI and ROS
Constitutional: Denies fever
Respiratory: Reports trouble breathing; Denies cough
Cardiac: Reports chest pain; Denies diaphoresis, palpitations or syncope
ABD/GI: Denies abdominal pain, nausea or vomiting
: Denies flank pain
Musculoskeletal: Denies neck pain or back pain
Neurological: Denies dizzy or headache
Phy Exam
Physical Exam
Physical Exam:
General: Awake, alert, oriented x3; no acute distress
Head: Normocephalic, atraumatic
Eyes: Conjunctiva normal, sclera anicteric
Throat: Airway intact, handling secretions
Neck: Trachea midline, supple without meningismus, no JVD
Lungs: Clear to auscultation bilaterally, no wheezing, rales, rhonchi
Heart: Regular rate and rhythm, systolic murmur
Abd: Soft, non distended, nontender
Neuro: No gross deficits
Extremities: No edema in extremities, equal pulses in all extremities; left upper extremity fistula with palpable thrill
Scores
Heart Failure Risk
Heart Failure Risk Score: Not Applicable
Heart Score for Chest Pain Patients
STEMI patient?: No
History: Slightly or Non-Suspicious
ECG: Nonspecific Repolarization
Age: >/= 65 years
Risk Factors: >/= 3 Risk Factors or History of CAD
Troponin: >/= 3 x Normal Limit
Heart Score for Chest Pain Patients: 7
Heart Score Risk: 72.7 % MACE over next 6 weeks
Withdrawal Assessment of Alcohol
Withdrawal Assessment Completed?: Not applicable
Course
Orders/Labs/Results
Orders:
Orders
06/03/24 15:22
ECG [Electrocardiogram (*1)] Urgent
Reason for Study: Chest Pain
Other Reason for Exam: L arm
EKG- Treatment ONCE
06/03/24 15:44
Complete Blood Count/With Diff Urgent
Comprehensive Metabolic Panel Urgent
Troponin I Urgent
06/03/24 16:40
CT Chest PE Study Urgent
Comment:
Reason For Exam: left chest/scapular pain
06/03/24 17:09
Aspirin Chewable [Low Strength Aspirin] 324 mg PO NOW STA
Morphine Sulfate 4 mg IV NOW STA
06/03/24 18:45
Troponin I Urgent
Abnormal Lab Results
06/03/24
15:44
WBC 11.4 H 10^3/uL
(4.8-10.8)
RBC 2.98 L 10^6/uL
(4.20-5.40)
Hgb 9.0 L g/dL
(12.0-16.0)
Hct 27.1 L %
(37.0-47.0)
RDW 16.3 H %
(11.5-14.5)
Plt Count 411 H 10^3/uL
(130-400)
Abs Immat Gran (auto) 0.2 H 10^3/uL
(0-0.05)
Absolute Neuts (auto) 7.8 H 10^3/uL
(1.4-6.5)
Absolute Monos (auto) 1.1 H 10^3/uL
(0.1-0.6)
Immature Gran % 1.3 H %
(0-0.5)
Lymphocytes % 17.3 L %
(20.5-51.1)
Chloride 94 L mmol/L
(98-107)
Carbon Dioxide 33 H mmol/L
(22-30)
BUN 25 H mg/dl
(7-17)
Creatinine 5.3 H* mg/dL
(0.6-1.0)
Glucose 274 H mg/dl
(70-99)
AST 63 H U/L
(14-36)
ALT 68 H U/L
(0-35)
Alkaline Phosphatase 359 H U/L
(38-126)
Troponin I 0.219 H* ng/ml
Total Protein 9.4 H g/dl
(6.3-8.2)
06/03/24 15:44
06/03/24 15:44
Vital Signs
Initial and Last Documented VS:
Initial Vital Signs
Temp Pulse Resp BP Pulse Ox
36.7 C 85 16 166/60 96
06/03/24 15:28 06/03/24 15:28 06/03/24 15:28 06/03/24 15:28 06/03/24 15:28
Last Documented Vital Signs
Temp Pulse Resp BP Pulse Ox
36.7 C 82 14 179/55 94
06/03/24 15:28 06/03/24 18:00 06/03/24 18:00 06/03/24 18:00 06/03/24 18:00
MDM/Problems Addressed
Differential Diagnosis Includes:
ACS/angina, PE, pneumothorax, pneumonia, costochondritis
MDM/Problems Addressed:
68-year-old female presents for evaluation of left-sided chest pain/scapular pain as described above. Hypertensive otherwise normal vitals. Physical exam as above. EKG shows lateral T wave abnormalities similar to prior. She had lab work sent in
triage including a CBC which shows stable anemia, CMP which shows abnormal renal function in keeping with known ESRD. Her initial troponin is elevated at 0.227�previously undetectable troponins during most recent hospitalization. Ostensibly with
nonobstructive disease on prior cath ACS less likely but given elevated troponin will need to admit for trending and further evaluation. Will check CTA given recent hospitalization to rule out PE. Reassess after the above.
CTA negative for pulmonary embolism. Will plan to admit for trending of troponin and continued monitoring. Full dose aspirin. Discussed case with hospitalist for admission.
Chronic conditions affecting care:
Hypertension, hyperlipidemia, diabetes�high risk for heart disease
Acute Exacerbation and/or Progression of Chronic Illness:
Acutely hypertensive
Acute Exacerbation and/or Progression of Chronic Illness: HTN
*Radiology
Radiology exam reviewed: radiology read reviewed
*Pulse Oximetry
Patient hypoxic: no
*EKG
Interpreted by ED Provider?: Yes
Comparison EKG: no changes
Heart Rate: 84
Rate: normal
Rhythm: sinus
Xenia: left axis deviation
Interval: normal interval
QRS Pattern: normal QRS
Ischemia: T-wave inversion
*Critical Care Note
Total Time (30-74mins, 75-104mins- exclusive of procedures): Not Applicable
Data Reviewed
Review of Other/Old Records Reveals: Labs, Records and Testing
Source: patient, records and family
Patient Management
Discussion with other providers: Hospitalist (Discussed with hospitalist)
Escalation/DeEscalation of care consider admission/obs:
Admission indicated
ED Attending Note
-
Portions of this chart may have been created with voice recognition software.� Occasional wrong word or��sound alike� substitutions may have occurred due to the inherent limitations of voice recognition software.
Discharge Plan
Departure
Patient Disposition: Admit
Date of Disposition: 06/03/24
Time of Disposition: 18:10
Admit to doctor: Shae
Presentation/result/management discussed w/ accepting MD/DO: Hospitalist
Discharge Problem:
Chest pain
Prescriptions:
No Action
cholecalciferol (vitamin D3) [Vitamin D3] 25 mcg (1,000 unit) capsule
25 mcg PO DAILY
calcium acetate(phosphat bind) 667 mg capsule
1,334 mg PO MEALS
Veltassa 16.8 gram powder in packet
16.8 g PO DAILY
nifedipine 60 mg Tablet Extended Release
60 mg PO BID Qty: 60 0RF
metoprolol tartrate 50 mg Tablet
50 mg PO BID Qty: 60 0RF
insulin NPH and regular human 100 unit/mL (70-30) Suspension
21 unit SC BID
acetaminophen 500 mg Tablet
1,000 mg PO Q6HPRN PRN (Reason: mild pain)
Triphrocaps 1 mg Capsule
1 cap PO DAILY
aspirin 81 mg Tablet,Chewable
81 mg PO DAILY Qty: 30 0RF
pantoprazole 40 mg Tablet,Delayed Release (Dr/Ec)
40 mg PO DAILY Qty: 30 0RF
gabapentin 100 mg Capsule
100 mg PO HS Qty: 30 0RF
famotidine 40 mg Tablet
40 mg PO HS
Referrals:
Cal Luque DO [Family Provider] -
Interventions
Interventions:
*Risk Screen - Suicide Last Done: 06/03/24 15:28
*General Assessment Last Done: 06/03/24 16:59
*Neglect/Abuse Screening Last Done: 06/03/24 15:28
*ED- Fall Risk Assessment Last Done: 06/03/24 16:59
*ED COVID-19 Vaccine History Last Done: 06/03/24 16:59
ED- Cardiac Assessment Last Done: 06/03/24 16:36
Discharge Date and Time
Print Language: ISRAELI
[2024-06-03] MEDS: LOW STRENGTH ASPIRIN 324 MG PO (17:24)
[2024-06-03] MEDS: MORPHINE SULFATE 4 MG IV (17:24)
--- NOTE | 2024-06-03 18:51 | HPS.HSE ---
Family Physician
-
Family Physician: Cal Luque
Chief Complaint
-
Chest Pain
History of Present Illness
Patient is a 68 y/o female past medical history of ESRD on HD, IDDM, HTN, and anemia of chronic disease who presents with chest pain. Additional history is obtained from family at the bedside due to language barrier. Patient was admitted last
month with chest pain. At that time patient had a negative troponin but due to significant risk factors underwent cardiac catheterization that admission which revealed trivial non-obstructive coronary artery disease. Family reports patient has
been experiencing chest pain since that admission but notes it got acute worse three days ago. She describes worsening pain in the scapula with radiation to the jaw, down the arm and across her chest. Work-up in ED revealed elevated troponin but no
significant ECG changes.
Medical History
Past Medical History
Past Medical History: Reports Other
Additional Past Medical History:
ESRD on HD (M-W-)
DM-II
Hypertension
Anemia of CKD
Persistent Hyperkalemia
Suspected Hepatocellular Carcinoma (patient not aware per family request)
Volume Overload / CHFpEF
Past Surgical History: Reports Other
Additional Past Surgical History:
LUE AVG
Cholecystectomy
R Eye Surgery
Social History
Tobacco: Non-smoker
Alcohol: None
Drug: None
Family History
Family History: Not pertinent
Allergies / Home Medications
Allergies reflects when Allergies were last updated in [facility].
Home Medications with original date entered in [facility]
Allergy/Medication List:
Allergies
Allergy/AdvReac Type Severity Reaction Status Date / Time
No Known Allergies Allergy Verified 05/02/24 19:48
Home Medications
calcium acetate(phosphat bind) 667 mg capsule 1,334 mg PO MEALS supplement (renal) 02/25/22
cholecalciferol (vitamin D3) 25 mcg (1,000 unit) capsule (Vitamin D3) 25 mcg PO DAILY Supplement 02/25/22
patiromer calcium sorbitex 16.8 gram oral powder packet (Veltassa) 16.8 g PO DAILY hyperkalemia (high potassium) 02/25/22
nifedipine 60 mg tablet,extended release 60 mg PO BID #60 tabs 02/27/22
metoprolol tartrate 50 mg tablet 50 mg PO BID #60 tabs 03/20/24
acetaminophen 500 mg tablet 1,000 mg PO Q6HPRN PRN mild pain 04/24/24
insulin human U-100 NPH-regulr 70-30 mix 100 unit/mL subcutaneous susp 21 unit SC BID Diabetes 04/24/24
vitamin B complex and vitamin C no.20-folic acid 1 mg capsule (Triphrocaps) 1 cap PO DAILY Supplement 04/24/24
aspirin 81 mg chewable tablet 81 mg PO DAILY #30 tabs 05/04/24
gabapentin 100 mg capsule 100 mg PO HS #30 caps 05/04/24
pantoprazole 40 mg tablet,delayed release 40 mg PO DAILY #30 tabs 05/04/24
famotidine 40 mg tablet 40 mg PO HS 06/03/24
Review of Systems
-
Unable to obtain full review of systems at this time due to: Language Barrier
Physical Exam
Vital Signs
Vital Signs
Temp Pulse Resp BP Pulse Ox
98.1 F 82 14 179/55 94
06/03/24 15:28 06/03/24 18:00 06/03/24 18:00 06/03/24 18:00 06/03/24 18:00
Physical Exam
General: Well Developed and Well Nourished
HEENT: Anicteric and Moist mucous membranes
Respiratory: Clear and Non Labored Respirations
Cardiac: S1/S2, Regular Rhythm and Murmur
GI: Soft and Non Tender
Rectal: Deferred by Provider
Musculoskeletal: No Clubbing, No Cyanosis, No Edema and Other (LUE AV Fistula with palpable thrill)
Skin: Warm and Dry
Neuro: Awake, Alert and Nonfocal/grossly intact
Psych: Calm
Laboratory Results
-
06/03/24 15:44
06/03/24 15:44
Laboratory Results
Total Bilirubin 0.5 mg/dl (0.2-1.3) 06/03/24 15:44
AST 63 U/L (14-36) H 06/03/24 15:44
ALT 68 U/L (0-35) H 06/03/24 15:44
Alkaline Phosphatase 359 U/L (38-126) H 06/03/24 15:44
Troponin I 0.219 ng/ml H* 06/03/24 15:44
Data Reviewed
-
Lab Data: Labs Reviewed by me
Old Records: Reviewed
Impression/Plan
-
NSTEMI
-Consult Cardiology
-Start heparin drip
-Continue aspirin
-Continue nitroglycerin SL PRN
-Keep NPO after midnight for possible cardiac cath in AM
ESRD on HD MoWe
-Consult Nephrology
-Monitor electrolytes
-Monitor Is&Os and Daily Weights
Diabetes Mellitus, Type II
-HgbA1c 7.3 in Feb 2024
-Insulin on hold while NPO for cardiac cath
-Monitor sugars and continue coverage insulin
Essential Hypertension
-Continue nifedipine and metoprolol
Anemia of Chronic Disease
-Hgb overall stable
DVT proph: SC Heparin
Code Status: Full Code
--- NOTE | 2024-06-03 19:08 | W.PN.UPDATE ---
Update Note
Progress Note Update
This note serves as an addendum to the H&P by civil engineering intern ROSHAN Mariaa WHITAKER
HPI
68F HX ESRD , CHD MWF, Full HD today, IDDM, Anemia of CKD, and hypertension seen at ER:
- onset of chest/scapular pain last night and have been constant since that time.
- pain initially in the left scapular region that has migrated towards the left chest.
- radiates towards the left shoulder/arm as well as towards the left jaw.
- No clear triggering & relieving factors
- pain at rest last night and has not been worse with exertion.
- associated shortness of breath.
She was admitted to this hospital a month ago for chest pain with EKG changes
- underwent cardiac catheterization 05/03/2024
- Dr. Valencia that showed nonobstructive disease.
ROS
- denies any associated nausea, vomiting, diaphoresis.
- no abdominal pain.
- no cough or fever.
Vital Signs
Temp Pulse Resp BP Pulse Ox
98.1 F 82 14 179/55 94
06/03/24 15:28 06/03/24 18:00 06/03/24 18:00 06/03/24 18:00 06/03/24 18:00
PE
Gen: looks comfortable s/p IV Morphine 4 mg
HEENT: ashen colored complexion
Neck: supple
Lungs: CTA
Cor: RRR S1 S2 soft SM at Lt USB
Abdomen: soft NT NG
CPS TEAM LEAD: AAO3 , NFND
MS: Lt arm AVF
Psych: no mood and affect
Laboratory Tests
06/19/22 05/02/24 05/04/24
WBC 16.2 H 12.0 H
Hgb 9.9 L
Plt Count 381
Abs Immat Gran (auto) 0.1 H
Absolute Neuts (auto) 14.6 H
Chloride
Carbon Dioxide
BUN 60 H
Creatinine 8.7 H*
Glucose 283 H
AST 78 H
ALT 82 H
Alkaline Phosphatase 275 H
Troponin I < 0.012 < 0.012
06/03/24
15:44
WBC 11.4 H
Hgb 9.0 L
Plt Count 411 H
Abs Immat Gran (auto)
Absolute Neuts (auto)
Chloride 94 L
Carbon Dioxide 33 H
BUN 25 H
Creatinine 5.3 H*
Glucose
AST
ALT
Alkaline Phosphatase
Troponin I 0.219 H*
05/03/24 Cardiac Cath:
- Nonobstructive coronary artery disease in a right dominant system.
- Severe systemic hypertension and elevated LVEDP
EKG
NORMAL SINUS RHYTHM
LEFT VENTRICULAR HYPERTROPHY WITH REPOLARIZATION ABNORMALITY ( R in aVL )
ABNORMAL ECG
WHEN COMPARED WITH ECG OF 03-JUN-2024 15:26,
NO SIGNIFICANT CHANGE WAS FOUND
Last hospitalist admission: 05/02/24 - 05/04/24
DC DXs:
Recurrent chest pain in setting of new murmur and ECG changes,
clinical concern for new cardiac event but was ruled out.
Possible dyspepsia.
Chronic Diagnoses:
ESRD on HD Monday
Insulin-dependent diabetes
Essential Hypertension, continue nifedipine and metoprolol
Hyperlipidemia
Anemia of Chronic Disease
History of stroke
ASSESSMENT & PLAN
Chest Pain with POS TPNI - NIMI vs NSTEMI
05/03/24 Cardiac Cath: Nonobstructive coronary artery disease in a right dominant system.
- NPO in case in AM
- Heparin gtt
- SL NTG PRN
- c/w [employer] Metoprolol tartrate
- CBC card consulted
ESRD on HD ( MWF )
- Full HD today
- Consult Nephrology
T2DM
- last HgbA1c 7.3 in Feb 2024
- Insulin on hold while NPO for cardiac cath
Essential HTN
- c/w nifedipine and metoprolol
Anemia of Chronic Disease
-Hgb overall stable
DVT Prx SQH
Full Code
IP TLM
[2024-06-03] MEDS: HEPARIN 3800 UNITS IV (19:19)
[2024-06-03 19:20] LABS: NT-proBNP 9670 pg/ml; Troponin I 0.219 ng/ml
[2024-06-03] MEDS: HEPARIN 25000 UNITS/250 ML IV (19:20)
[2024-06-03 20:28] LABS: APTT > 200 Sec (23.4-35.0)
[2024-06-03] MEDS: NEURONTIN 100 MG PO (21:15)
[2024-06-03] MEDS: LOPRESSOR 50 MG PO (21:15)
[2024-06-03] MEDS: NITROSTAT (SUBLINGUAL) 0.4 MG SL ×2 (21:16→21:44)
[2024-06-03] MEDS: PROCARDIA XL (EXTENDED RELEASE) 60 MG PO (21:40)
[2024-06-03 21:50] LABS: Glucose - Point of Care 137 mg/dl (70-99)
--- NOTE | 2024-06-03 22:04 | PTCARENOTE ---
Pt admitted to room 2241 with Chest pain. Pt AAOx3 forgetful, Citizen Of [place] speaking. Daughter helping with translation and admission questions. Pt with CP 6/10, SPB in 180s. Nitro SL x 1 given with pain improve to 2/10. Pt stated that she also has left
side back pain 5/10. Second Nitro SL given with pain improve to 1/10 for back pain and 0/10 for left chest pain. BP 154/59 HR 71. Pt ambulates with x 1 assist. Oriented to the room, call forrester in place
[2024-06-04 01:02] LABS: APTT 52.2 Sec (23.4-35.0)
[2024-06-04 01:17] LABS: Troponin I 0.235 ng/ml
[2024-06-04 04:21] VITALS: BP 137/49
[2024-06-04 06:00] VITALS: BMI 26.1
[2024-06-04 06:45] LABS: Hematocrit 29.1 % (37.0-47.0); Hemoglobin 9.5 g/dL (12.0-16.0); Mean Corp Hgb Conc. 32.6 g/dL (33.0-37.0); Mean Corpuscular Hgb 30.4 pg (27.0-31.0); Mean Platelet Volume 9.9 fL (7.4-10.4); Platelet Count 405 10^3/uL (130-400); Red Blood Cell Count 3.13 10^6/uL (4.20-5.40); Red Cell Dist. Width 16.7 % (11.5-14.5); White Blood Cell Count 10.5 10^3/uL (4.8-10.8)
[2024-06-04 06:53] VITALS: BP 159/51
[2024-06-04 06:54] LABS: APTT 46.9 Sec (23.4-35.0)
[2024-06-04 07:01] LABS: Glucose - Point of Care 173 mg/dl (70-99)
[2024-06-04 07:08] LABS: Troponin I 0.203 ng/ml
--- NOTE | 2024-06-04 07:49 | W.PN.HOSP.TC ---
Addendum entered and electronically signed by Velvet Calhoun MD 06/04/24 14:18:
discussed plan with Dr. Fowler, OK to stop heparin gtt
Original Note:
Today's Communication/Plan
-
NPO until cardiology eval
Assessment / Plan
Assessment / Plan
Patient is a 68 y/o female past medical history of ESRD on HD, IDDM, HTN, and anemia of chronic disease, recent admission 05/02-05/04/24 for chest pain with cardiac cath showing non-obstructive disease, who presents with recurrent chest pain.
Chest CT
IMPRESSION:
1. No evidence of pulmonary embolism.
2. There is diffuse groundglass opacities with interlobular septal thickening favored to represent mild/moderate interstitial edema, less likely pneumonia.
3. There is a mildly heterogeneous, hypodense lesion within the right hepatic lobe measuring 2.9 cm, previously 2.6 cm. This was previously characterized on prior MRI as hepatocellular carcinoma. Further evaluation with dedicated MRI abdomen may be
considered.
4. The left kidney is atrophic.
Chest Pain with positive Troponin
05/03/24 Cardiac Cath: Nonobstructive coronary artery disease in a right dominant system.
-Troponin peaked 0.235
- NPO until cardiology eval
- Heparin gtt
- asa 81mg PO QD
- SL NTG PRN
- c/w [employer] Metoprolol tartrate
- CBC card consulted
ESRD on HD ( MWF )
- Consult Nephrology
Heart Failure preserved EF, Acute Exacerbation
-interstitial fluid seen on CT chest
-fluid removal with HD by Renal
T2DM
- last HgbA1c 7.3 in Feb 2024
- Insulin on hold while NPO for cardiac cath
Essential HTN
- c/w nifedipine and metoprolol
Anemia of Chronic Disease
-Hgb overall stable
Abnormal right hepatic lobe lesion
-abdomen MRI showed 2.6cm mass consistent with hepatic carcinoma
-*per daughter this is a known finding, not undergoing treament
DVT Prx SQH
Full Code
IP TLM
Anticipated Discharge: 24 - 48 hours
Subjective/Interval History
-
Date of Service: June 04, 2024
has not had left-sided chest pain recurrence
she has some discomfort along left shoulder that is worse with palpation - this is not the pain that brought her in
Objective Data
-
Labs:
Laboratory Results
06/03/24 06/04/24 06/04/24
19:32 00:38 06:32
WBC 10.5
Hgb 9.5 L
Hct 29.1 L
Plt Count 405 H
APTT > 200 H* 52.2 H 46.9 H
Sodium Pending
Potassium Pending
Chloride Pending
Carbon Dioxide Pending
BUN Pending
Creatinine Pending
Glucose Pending
Calcium Pending
Total Bilirubin Pending
AST Pending
ALT Pending
Alkaline Phosphatase Pending
06/04/24
13:20
WBC
Hgb
Hct
Plt Count
APTT Pending
Sodium
Potassium
Chloride
Carbon Dioxide
BUN
Creatinine
Glucose
Calcium
Total Bilirubin
AST
ALT
Alkaline Phosphatase
Vital Signs:
Vital Signs
Temp Pulse Resp BP Pulse Ox
98.4 F 76 16 159/51 97
06/04/24 06:52 06/04/24 07:00 06/04/24 06:52 06/04/24 06:53 06/04/24 06:52
Review of Systems
-
History Source: Patient
All other systems: Reviewed and negative
Physical Exam
-
General: Well Developed, Well Nourished, No Apparent Distress and Comfortable
HEENT: Normocephalic and Atraumatic; Negative Oxygen
Respiratory: Non Labored Respirations
Cardiac: Regular Rhythm, S1/S2 and Murmur
GI: Soft, Nontender and Nondistended
Musculoskeletal: No Edema and Other (Left arm AV fistula with good palpable thrill)
Neuro: Awake, Alert and Nonfocal/Grossly Intact
Psych: Calm and Intact Judgement/Insight
Data Reviewed
-
Diagnostic Radiology: Report Reviewed by me
Labs: Labs Reviewed by me
[2024-06-04] MEDS: PROTONIX 40 MG PO (08:20)
[2024-06-04] MEDS: LOPRESSOR 50 MG PO ×2 (08:20→19:48)
[2024-06-04] MEDS: PROCARDIA XL (EXTENDED RELEASE) 60 MG PO ×2 (08:20→19:48)
[2024-06-04] MEDS: LOW STRENGTH ASPIRIN 81 MG PO (08:20)
[2024-06-04] MEDS: PHOSLO PO (08:20)
[2024-06-04] MEDS: NEPHROCAP 1 CAPSULE PO (08:20)
[2024-06-04] MEDS: FLUSH (NSS) 1 FLUSH IV (08:21)
[2024-06-04 08:34] LABS: Glycohemoglobin (HgbA1c) 7.4 % (4.0-5.6)
[2024-06-04 08:47] LABS: ALT (SGPT) 74 U/L (0-35); AST (SGOT) 65 U/L (14-36); Alkaline Phosphatase 359 U/L (38-126); Blood Urea Nitrogen 35 mg/dl (7-17); Calcium 9.8 mg/dl (8.4-10.2); Carbon Dioxide 25 mmol/L (22-30); Chloride 95 mmol/L (98-107); Estimated Creatinine Clearance 7 ml/min; Glucose 182 mg/dl (70-99); Sodium 137 mmol/L (135-145); Total Bilirubin 0.5 mg/dl (0.2-1.3); Total Protein 8.8 g/dl (6.3-8.2); eGFR 6.07
--- NOTE | 2024-06-04 09:25 | PTCARENOTE ---
The patient is aaox3, her vital signs are stable. NSR is noted on the monitor. She has no complaints of chest pain however she does complain of left shoulder discomfort when she moves. A heating pad was ordered and applied. Her daughter helps
translate.
--- NOTE | 2024-06-04 09:32 | CON.CAR ---
Addendum entered and electronically signed by Tavo Fowler MD 06/04/24 10:09:
I saw and examined the patient.
The BUSINESS INTELLIGENCE DEVELOPER's note was reviewed and I agree with the note.
Primary box chipper Dr. Sharpe
68-year-old woman known from most recent hospitalization. Patient has a history of ESRD, heart failure preserved ejection fraction hypertension hypercholesterolemia, CVA and hepatocellular cancer who presents with chest pain. Previously she had
had long periods of chest pain and had undergone an ER evaluation and then had an office visit. Due to recurrence of her chest pain she was hospitalized and ultimately underwent cardiac catheterization with no evidence of obstructive coronary
artery disease. Rare ectopy.. Most recent cath 05/03/2024.Post-cath the plan based on the report was continued treatment of hypertension as well as possible microvascular angina. Patient has been maintained on nitrates as well as aspirin.
Patient's still had episodes of chest discomfort including an episode on the day of admission. Some difficulty in describing pattern or precipitating factors patient evaluated today and is chest pain-free no change with position it sounds as if
which she is having the pain that is worse with deep inspiration. Even with the use of car rental deliverer there was some difficulty in getting a clear pattern and duration of her symptoms. Troponins are been at 0.2 CT was negative for pulmonary embolism
this admission. Exact etiology of symptoms unclear. Troponins are more elevated this admission than last admission and are 0.2. Patient had catheterization on 05/03/2024. Would continue to adjust medical therapy for possible microvascular angina
or coronary spasm which would include the addition of nitrates. Continue aspirin. Also optimize treatment for GERD
Original Note:
Consultation
Consultation Request
Date/Time Consultation Requested: 06/03/2024 20:45
Date/Time Consultation Performed: 06/04/2024 08:50
Requesting Provider: Cheyanne Tucker PA-C
Performing Provider: CARLOS MANUEL Sherman for Dr. Fowler
Reason for Consultation: Chest pain
Medical History
-
Chief Complaint: Chest pain
History of Present Illness:
Namita Velazquez is a 68-year-old female (known to Dr. Sharpe, her primary box chipper) with ESRD on HD, prior CVA, HFpEF, hypertension, dyslipidemia, and hepatocellular carcinoma with recent admission for chest pain in February, presents with
chest pain. Last admission she had a cardiac catheterization which did not show any significant obstructive coronary artery disease. A PPI was added. Her hypertensive regimen was optimized. Nephrology was going to optimize volume status with
hemodialysis. She presents back with chest discomfort. It feels similar to February. It has been ongoing for 1 week. It gets worse with exertion and improves with rest. It radiates up her neck and into her left shoulder. She denies dizziness,
diaphoresis, and shortness of breath. Last admission all troponins were less than 0.012. Peak troponin this admission 0.235.
Ms. Velazquez is Maltese-speaking. A professional translation service was offered but she preferred to use her family at the bedside.
Past Medical History
Past Medical History: CHF, CVA, HTN, Hypercholesterolemia, IDDM, Renal Failure (ESRD on HD) and Other (Hepatocellular carcinoma)
Past Surgical History: Cholecystectomy and Gynecological
Social History
Tobacco: Non-Smoker
Alcohol: None
Living: With Family
Employment: Retired
Family History
Family History: Reviewed & Not Pertinent
Allergies / Home Medications
Allergy/AdvReac Type Severity Reaction Status Date / Time
No Known Allergies Allergy Verified 05/02/24 19:48
�Medication �Instructions �Recorded �Confirmed �Type
calcium acetate(phosphat bind) 667 1,334 mg PO MEALS supplement 02/25/22 06/03/24 History
mg capsule (renal)
cholecalciferol (vitamin D3) 25 25 mcg PO DAILY Supplement 02/25/22 06/03/24 History
mcg (1,000 unit) capsule (Vitamin
D3)
patiromer calcium sorbitex 16.8 16.8 g PO DAILY hyperkalemia (high 02/25/22 06/03/24 History
gram oral powder packet (Veltassa) potassium)
nifedipine 60 mg tablet,extended 60 mg PO BID #60 tabs 02/27/22 06/03/24 Rx
release
metoprolol tartrate 50 mg tablet 50 mg PO BID #60 tabs 03/20/24 06/03/24 Rx
acetaminophen 500 mg tablet 1,000 mg PO Q6HPRN PRN mild pain 04/24/24 06/03/24 History
insulin human U-100 NPH-regulr 21 unit SC BID Diabetes 04/24/24 06/03/24 History
70-30 mix 100 unit/mL subcutaneous
susp
vitamin B complex and vitamin C 1 cap PO DAILY Supplement 04/24/24 06/03/24 History
no.20-folic acid 1 mg capsule
(Triphrocaps)
aspirin 81 mg chewable tablet 81 mg PO DAILY #30 tabs 05/04/24 06/03/24 Rx
gabapentin 100 mg capsule 100 mg PO HS #30 caps 05/04/24 06/03/24 Rx
pantoprazole 40 mg tablet,delayed 40 mg PO DAILY #30 tabs 05/04/24 06/03/24 Rx
release
famotidine 40 mg tablet 40 mg PO HS 06/03/24 06/03/24 History
Review of Systems
-
History Source: Patient
All other systems: Negative unless noted
Constitutional: No Symptoms
EENT: No Symptoms
Respiratory: No Symptoms
Abdomen/GI: No Symptoms
: No Symptoms
Musculoskeletal: No Symptoms
Skin: No Symptoms
Endocrine: No Symptoms
Hematologic/Lymphatic: No Symptoms
Physical Exam
Vital Signs
Temp Pulse Resp BP Pulse Ox
98.4 F 76 16 159/51 97
06/04/24 06:52 06/04/24 07:00 06/04/24 06:52 06/04/24 06:53 06/04/24 06:52
Lab Results
06/04/24 06:32
06/04/24 06:32
Troponin I 0.203 ng/ml H* 06/04/24 06:32
Fzs-A-Licgqeosdxf Pept 9670 pg/ml 06/03/24 18:46
Physical Exam
General: Well Developed, Well Nourished, No Apparent Distress and Comfortable
HEENT: Normocephalic, Anicteric and Moist Mucous Membranes
Respiratory: Clear and Non Labored Respirations
Cardiac: S1/S2 and Regular Rhythm
Breast: Deferred by me
GI: Soft, Non Tender, Non Distended and Normal Bowel Sounds
Rectal: Deferred by Provider
Genito-urinary: No Costovertebral Tender
Musculoskeletal: No Clubbing and No Cyanosis
Skin: Warm and Dry
Neuro: AO x 3
Psych: Calm
Impression / Plan
-
I/P: 68F with ESRD on HD, prior CVA, HFpEF, hypertension, dyslipidemia, and hepatocellular carcinoma presents with CP.
Outpatient box chipper: Dr. Sharpe
Chest pain
-Cardiac catheterization February without significant obstructive disease
-CT without PE
-Does not appear to be pericarditis by exam, update EKG
-Limited echocardiogram to rule out pericardial effusion
Abnormal troponin, type unknown
-Currently chest pain-free
-Add nitrate, isosorbide mononitrate 30 mg
HFpEF, chronic
-Stable weight without shortness of breath
-GDMT limited by ESRD
-Trend daily weight and I/O, volume management with hemodialysis
ESRD on HD Monday/Monday/Monday, nephrology following
Hepatic lobe lesion, right, MRI showed 2.6 cm mass consistent with hepatic carcinoma
Type 2 diabetes mellitus with hyperglycemia, HgbA1c 7.3%
DATA:
Cardiac catheterization, 05/03/2024:
Conclusion:
1. Nonobstructive coronary artery disease as described in a right dominant system
2. Severe systemic hypertension and elevated LVEDP
Recommendations:
1. Secondary prevention of coronary artery disease
2. Treatment of hypertension and possible microvascular angina
Data Reviewed
-
CT Scan: Report Reviewed by me
Medical Tests (Nuc Med, Echo etc): Report Reviewed by me (As above)
Old Records: Reviewed
--- NOTE | 2024-06-04 10:37 | CM ---
Reviewed chart. Met with Mrs. Velazquez and her daughter to review discharge plans. Daughter states Mrs. Velazquez resides with her daughter in an apartment with two steps to enter. She states prior to admission she was independent with ambulation and
adls. She does not have any DME in the home. Her daughter states she goes to outpatient dialysis on Monday, Monday aand Monday at 6:00 a.m. Her family transport her to dialysis and transportation system brings her home, (BTC?) She does not
have any DME in the home. She has a prescription plan and uses [facility]. Medical work-up in progress. The discharge plan is to return home with her daughter when medically stable.
[2024-06-04 10:55] LABS: Glucose - Point of Care 196 mg/dl (70-99)
[2024-06-04] MEDS: IMDUR (EXTENDED RELEASE) 30 MG PO (11:01)
[2024-06-04] MEDS: NOVOLOG FLEXPEN-LOW RESISTANCE 1 UNITS SC (11:01)
[2024-06-04] MEDS: PHOSLO 1334 MG PO ×2 (11:02→18:10)
[2024-06-04 11:13] VITALS: BP 155/46
--- NOTE | 2024-06-04 12:39 | W.CON.NEPH ---
Consultation
-
Date/Time Consultation Requested: June 03, 2024 at 8 PM
Date/Time Consultation Performed: 2024 at 12 PM
Requesting Provider: Dr. Calhoun
Performing Provider: Dr. Marks
Reason for Consultation: ESRD
Medical History
-
Chief Complaint: CP
History of Present Illness:
68y F with PMH significant for ESRD on HD MWF at [facility], h/o vol overload, hypertension on Nifedipine, hydralazine, chr hyperkalemia on Veltasa, hyperphosphatemia on calcium acetate and DM-II on insulin who presents to ED complaining of
chest pain admitted earlier in April s/p cardiac catheterization.
Renal consult for end-stage renal disease Monday last treatment was Monday
Past Medical History
ESRD on HD (M[facility]
Hypertension
Anemia of CKD
Persistent Hyperkalemia
Suspected Hepatocellular Carcinoma (patient not aware per family request)
Volume Overload / CHFpEF
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
Diabetes mellitus, multiple microvascular complications, neuropathy, retinopathy and nephropathy.
History of CVA.
Cholecystectomy.
Chronic headaches.
Past Surgical History: Other (LUE AVG Cholecystectomy R Eye Surgery)
Social History
She resides at home with family. She does not smoke nor consume alcohol.
Family History
Reportedly with CKD, hypertension, and diabetes mellitus.
Family History: Not Pertinent
Allergies / Home Medications
Allergy/AdvReac Type Severity Reaction Status Date / Time
No Known Allergies Allergy Verified 05/02/24 19:48
�Medication �Instructions �Recorded �Confirmed �Type
calcium acetate(phosphat bind) 667 1,334 mg PO MEALS supplement 02/25/22 06/03/24 History
mg capsule (renal)
cholecalciferol (vitamin D3) 25 25 mcg PO DAILY Supplement 02/25/22 06/03/24 History
mcg (1,000 unit) capsule (Vitamin
D3)
patiromer calcium sorbitex 16.8 16.8 g PO DAILY hyperkalemia (high 02/25/22 06/03/24 History
gram oral powder packet (Veltassa) potassium)
nifedipine 60 mg tablet,extended 60 mg PO BID #60 tabs 02/27/22 06/03/24 Rx
release
metoprolol tartrate 50 mg tablet 50 mg PO BID #60 tabs 03/20/24 06/03/24 Rx
acetaminophen 500 mg tablet 1,000 mg PO Q6HPRN PRN mild pain 04/24/24 06/03/24 History
insulin human U-100 NPH-regulr 21 unit SC BID Diabetes 04/24/24 06/03/24 History
70-30 mix 100 unit/mL subcutaneous
susp
vitamin B complex and vitamin C 1 cap PO DAILY Supplement 04/24/24 06/03/24 History
no.20-folic acid 1 mg capsule
(Triphrocaps)
aspirin 81 mg chewable tablet 81 mg PO DAILY #30 tabs 05/04/24 06/03/24 Rx
gabapentin 100 mg capsule 100 mg PO HS #30 caps 05/04/24 06/03/24 Rx
pantoprazole 40 mg tablet,delayed 40 mg PO DAILY #30 tabs 05/04/24 06/03/24 Rx
release
famotidine 40 mg tablet 40 mg PO HS 06/03/24 06/03/24 History
Review of Systems
-
Currently no chest pain or shortness of breath
All other systems: Negative unless noted
Physical Exam
Vital Signs
Vital Signs
Temp Pulse Resp BP Pulse Ox
98.3 F 77 16 155/46 92
06/04/24 11:13 06/04/24 11:13 06/04/24 11:13 06/04/24 11:13 06/04/24 11:13
Lab Results
WBC 10.5 10^3/uL (4.8-10.8) 06/04/24 06:32
RBC 3.13 10^6/uL (4.20-5.40) L 06/04/24 06:32
Hgb 9.5 g/dL (12.0-16.0) L 06/04/24 06:32
Hct 29.1 % (37.0-47.0) L 06/04/24 06:32
Plt Count 405 10^3/uL (130-400) H 06/04/24 06:32
Sodium 137 mmol/L (135-145) 06/04/24 06:32
Potassium 5.0 mmol/L (3.5-5.1) 06/04/24 06:32
Chloride 95 mmol/L (98-107) L 06/04/24 06:32
Carbon Dioxide 25 mmol/L (22-30) 06/04/24 06:32
BUN 35 mg/dl (7-17) H 06/04/24 06:32
Creatinine 6.8 mg/dL (0.6-1.0) H* 06/04/24 06:32
eGFR 6.07 06/04/24 06:32
Glucose 182 mg/dl (70-99) H 06/04/24 06:32
Calcium 9.8 mg/dl (8.4-10.2) 06/04/24 06:32
Lri-V-Pmuxjmcubjs Pept 9670 pg/ml 06/03/24 18:46
Albumin 4.0 g/dl (3.5-5.0) 06/04/24 06:32
Physical Exam
General: Awake, Alert, Oriented, AOx3, No Distress and Nontoxic
HEENT: EOMI, Anicteric and Other (difficult to assess JVD with thick neck)
Respiratory: Crackels, Normal Excursion and Nonlabored Respirations
Cardiac: S1/S2 and Murmur (mitral and aortic area)
Breast: Deferred by me
Abdomen: Soft, Nontender and Nondistended
Musculoskeletal: No Cyanosis and No Edema
Skin: No Rash
Neuro: Nonfocal/Grossly Intact
Psych: Mood/afflect pleasant, Insight/judgement good and Appropriate
Vascular Access: AVG
Data Reviewed
-
Radiology: Image Personally Visualized and interpreted (Pulmonary edema mild)
Labs: Labs Reviewed by me, Discussed with Patient and Discussed with Family
Assessment/Plan
-
IMP:
[facility] Pain
[facility] Hyperkalemia
Anemia of CKD
IDDM-II
Abnormal LFTs
Possible hepatocellular carcinoma.(patient not aware per family request)
h/o CVA
Hyperphosphatemia
left UE AVG
Plan:
Continue Monday schedule
Cardiology noted
Veltassa chronic
Discussed with daughter at the bedside who translated
No acute need for dialysis today
Dialysis ordered for tomorrow
[2024-06-04 13:39] LABS: Glucose - Point of Care 211 mg/dl (70-99)
[2024-06-04] MEDS: NOVOLOG FLEXPEN-LOW RESISTANCE 2 UNITS SC ×2 (13:47→18:05)
[2024-06-04 15:02] LABS: Hepatitis C Antibody Negative (Negative)
[2024-06-04 15:22] VITALS: BP 130/48
[2024-06-04 16:20] VITALS: BMI 26.1
[2024-06-04 17:16] LABS: Glucose - Point of Care 225 mg/dl (70-99)
[2024-06-04 18:26] VITALS: BP 153/50
[2024-06-04 21:29] LABS: Glucose - Point of Care 177 mg/dl (70-99)
[2024-06-04] MEDS: PEPCID 20 MG PO (21:36)
[2024-06-04] MEDS: NEURONTIN 100 MG PO (21:36)
[2024-06-04 23:05] VITALS: BP 161/56
[2024-06-05] VITALS (12 sets, daily range): BP systolic 104–184; BP diastolic 38–65; PULSE 80; O2SAT 99; BMI 26.1
--- NOTE | 2024-06-05 01:21 | PTCARENOTE ---
Pt rec'd at shift change awake,alert. Pt called son to help translate. Per pts son no c/o cp or sob. Sinus on telemetry. Pt for dialysis at 0700.
[2024-06-05 07:40] LABS: Hematocrit 26.9 % (37.0-47.0); Hemoglobin 8.9 g/dL (12.0-16.0); Mean Corp Hgb Conc. 33.1 g/dL (33.0-37.0); Mean Corpuscular Hgb 30.3 pg (27.0-31.0); Mean Corpuscular Volume 91.5 fL (81.0-99.0); Mean Platelet Volume 10.1 fL (7.4-10.4); Platelet Count 410 10^3/uL (130-400); Red Blood Cell Count 2.94 10^6/uL (4.20-5.40); Red Cell Dist. Width 16.3 % (11.5-14.5); White Blood Cell Count 13.5 10^3/uL (4.8-10.8)
[2024-06-05] MEDS: PROCARDIA XL (EXTENDED RELEASE) PO (08:00)
--- NOTE | 2024-06-05 08:06 | W.PN.HOSP.TC ---
Today's Communication/Plan
-
follow up symptoms post fluid removal with HD
PT Eval
Follow up further Cardiology and Renal recs
resume lower dose NPH
Assessment / Plan
Assessment / Plan
Patient is a 68 y/o female past medical history of ESRD on HD, IDDM, HTN, and anemia of chronic disease, recent admission 05/02-05/04/24 for chest pain with cardiac cath showing non-obstructive disease, who presents with recurrent chest pain.
Chest CT
IMPRESSION:
1. No evidence of pulmonary embolism.
2. There is diffuse groundglass opacities with interlobular septal thickening favored to represent mild/moderate interstitial edema, less likely pneumonia.
3. There is a mildly heterogeneous, hypodense lesion within the right hepatic lobe measuring 2.9 cm, previously 2.6 cm. This was previously characterized on prior MRI as hepatocellular carcinoma. Further evaluation with dedicated MRI abdomen may be
considered.
4. The left kidney is atrophic.
TTE 06/04/24
CONCLUSIONS
Limited follow up study Normal left ventricular systolic function.
Left ventricular ejection fraction is 60-65% .
LVH
Trace to small pericardial effusion which is mostly noted along the
inferolateral wall of the left ventricle.
Compared to the previous report 03/18/2024 previous study no pericardial
effusion reported. However on review of the study images there is a trace
amount of pericardial effusion fluid along the inferolateral wall on the study
from 03/18/2024
Chest Pain with positive Troponin
05/03/24 Cardiac Cath: Nonobstructive coronary artery disease in a right dominant system.
-Troponin peaked 0.235
-etiology may be fluid overload? no e/o PE on CTA at admission versus microvascular angina or coronary spasm
-Heparin gtt stopped HD 1
-s/p TTE, results above
-asa 81mg PO QD
-new start Imdur 30mg PO QD
-OLD COIN DEALER Nifedipine
-SL NTG PRN
-OLD COIN DEALER Metoprolol tartrate
-Cardiology consult appreciated
-follow up symptoms post dialysis; PT ordered
ESRD on HD ( MWF )
- Consult Nephrology
- fluid removal today
Heart Failure preserved EF, Acute Exacerbation
-interstitial fluid seen on CT chest
-fluid removal with HD by Renal
T2DM
- last HgbA1c 7.3 in Feb 2024
- start lower dose NPH
Essential HTN
- c/w nifedipine and metoprolol
Anemia of Chronic Disease
-Hgb overall stable
Abnormal right hepatic lobe lesion
-abdomen MRI showed 2.6cm mass consistent with hepatic carcinoma
-*per daughter this is a known finding, not undergoing treatment
DVT Prx SQH
Full Code
IP TLM
Anticipated Discharge: Within 24 hours
Subjective/Interval History
-
Date of Service: June 05, 2024
patient has some chest discomfort; she is seen on dialysis
she wants to eat
Objective Data
-
Labs:
Laboratory Results
06/05/24
07:23
WBC 13.5 H
Hgb 8.9 L
Hct 26.9 L
Plt Count 410 H
Sodium Pending
Potassium Pending
Chloride Pending
Carbon Dioxide Pending
BUN Pending
Creatinine Pending
Glucose Pending
Calcium Pending
Vital Signs:
Vital Signs
Temp Pulse Resp BP Pulse Ox
99 F 74 20 175/56 94
06/05/24 06:51 06/05/24 07:30 06/05/24 06:51 06/05/24 07:30 06/05/24 07:30
Review of Systems
-
History Source: Patient
All other systems: Reviewed and negative
Physical Exam
-
General: Well Developed, Well Nourished, No Apparent Distress and Comfortable
HEENT: Normocephalic and Atraumatic; Negative Oxygen
Respiratory: Non Labored Respirations
Cardiac: Regular Rhythm, S1/S2 and Murmur
GI: Soft, Nontender and Nondistended
Musculoskeletal: No Edema and Other (Left arm AV fistula with good palpable thrill)
Neuro: Awake, Alert and Nonfocal/Grossly Intact
Psych: Calm and Intact Judgement/Insight
Data Reviewed
-
Diagnostic Radiology: Report Reviewed by me
Labs: Labs Reviewed by me
[2024-06-05] MEDS: RETACRIT 10000 UNITS IV (08:09)
[2024-06-05] MEDS: MANNITOL 25% 12.5 GRAMS IV (08:09)
[2024-06-05 08:17] LABS: Glucose - Point of Care 168 mg/dl (70-99)
[2024-06-05 09:00] LABS: Blood Urea Nitrogen 54 mg/dl (7-17); Calcium 9.6 mg/dl (8.4-10.2); Carbon Dioxide 25 mmol/L (22-30); Chloride 93 mmol/L (98-107); Estimated Creatinine Clearance 5 ml/min; Glucose 190 mg/dl (70-99); Phosphorus 4.9 mg/dl (2.5-4.5); Potassium 5.5 mmol/L (3.5-5.1); Sodium 135 mmol/L (135-145); eGFR 3.92
--- NOTE | 2024-06-05 10:38 | W.PN.NEPH.HD ---
Assessment
-
nausea on hd, zofran
UF 2.5
No CP or SOB
Progress Note - Hemodialysis
-
Date of Service: June 05, 2024
Duration: 30 minutes and 3 hours
Potassium Bath: 2
Calcium Bath: 2.5
Opti-Dialyzer: 160
Ultrafiltration: Other (3kg)
Blood Flow: 400
Dialysate Flow: 600
Heparin: 0
EPO: 3000 units
[2024-06-05] MEDS: ZOFRAN 4 MG IV (10:39)
[2024-06-05 11:15] LABS: Troponin I 0.137 ng/ml
[2024-06-05 11:28] LABS: Glucose - Point of Care 201 mg/dl (70-99)
[2024-06-05] MEDS: NOVOLOG FLEXPEN-LOW RESISTANCE 2 UNITS SC (11:29)
[2024-06-05] MEDS: NOVOLOG FLEXPEN-LOW RESISTANCE SC (11:29)
[2024-06-05] MEDS: HUMULIN N KWIKPEN 5 UNITS SC (11:30)
[2024-06-05] MEDS: PHOSLO 1334 MG PO (11:33)
[2024-06-05] MEDS: PROTONIX 40 MG PO (11:34)
[2024-06-05] MEDS: IMDUR (EXTENDED RELEASE) 30 MG PO (11:34)
[2024-06-05] MEDS: LOW STRENGTH ASPIRIN 81 MG PO (11:34)
[2024-06-05] MEDS: LOPRESSOR 50 MG PO (11:34)
[2024-06-05] MEDS: NEPHROCAP 1 CAPSULE PO (11:35)
[2024-06-05] MEDS: PHOSLO PO (13:16)
--- NOTE | 2024-06-05 15:04 | W.DCSUMMARY ---
Discharge Summary
Discharge Data
Date of Admission: 06/03/24
Date of Discharge: 06/05/24
-
Pending Results: No
Hospital Course
Discharging Physician : Dr. Velvet Calhoun
Disposition : Home with VN
Primary care physician : Dr. Cal Luque
Principal Discharge diagnosis : Chest pain, possibly secondary to volume overload
Hospital Course :
Patient is a 68 y/o female past medical history of ESRD on HD, IDDM, HTN, and anemia of chronic disease, recent admission 05/02-05/04/24 for chest pain with cardiac cath showing non-obstructive disease, who presents with recurrent chest pain. Chest CT
negative for PE, findings of mild/moderate interstitial edema. Troponin elevated to 0.219. She was admitted to medicine with Cardiology and Renal consulting.
Given patient had a recent catheterization without obstructive disease, no indication for repeat catheterization recommended. Differential included GERD versus volume overload versus pericarditis. TTE obtained which showed trace pericardial
effusion. Her Troponin peaked at 0.235. She was newly started on Imdur. On HD 2 she received hemodialysis with fluid removal. She reported significant improvement in symptoms post dialysis and ambulated well with PT, HH recommended.
She is discharged with new script for Imdur.
Continued volume removal with hemodialysis.
Time spent on discharge was 31 minutes.
Important imaging findings :
Chest CT
IMPRESSION:
1. No evidence of pulmonary embolism.
2. There is diffuse groundglass opacities with interlobular septal thickening favored to represent mild/moderate interstitial edema, less likely pneumonia.
3. There is a mildly heterogeneous, hypodense lesion within the right hepatic lobe measuring 2.9 cm, previously 2.6 cm. This was previously characterized on prior MRI as hepatocellular carcinoma. Further evaluation with dedicated MRI abdomen may be
considered.
4. The left kidney is atrophic.
TTE 06/04/24
CONCLUSIONS
Limited follow up study Normal left ventricular systolic function.
Left ventricular ejection fraction is 60-65% .
LVH
Trace to small pericardial effusion which is mostly noted along the
inferolateral wall of the left ventricle.
Compared to the previous report 03/18/2024 previous study no pericardial
effusion reported. However on review of the study images there is a trace
amount of pericardial effusion fluid along the inferolateral wall on the study
from 03/18/2024
Procedure findings :
Discharge Plan
-
Patient Disposition: Home with Home Care
Discharge Diagnosis/Procedures: chest pain in setting of heart failure exacerbation, non ischemic myocardial injury
Diet: 2 Gram Sodium and Restrict fluids to 48 oz
Activity: As tolerated
Driving Restrictions: No driving
Bathing Restrictions: None
Other Services: VN, PT and OT
Specialty Instructions: Weigh Daily- Call MD for wt gain/loss 3 lbs overnight/5 lbs in 1 week
Referrals:
Cal Luque DO [Family Provider] - in less than 1 week
Prescriptions:
New
isosorbide mononitrate 30 mg Tablet Extended Release 24 Hr
30 mg PO DAILY Qty: 30 0RF
Continued
cholecalciferol (vitamin D3) [Vitamin D3] 25 mcg (1,000 unit) capsule
25 mcg PO DAILY
calcium acetate(phosphat bind) 667 mg capsule
1,334 mg PO MEALS
Veltassa 16.8 gram powder in packet
16.8 g PO DAILY
nifedipine 60 mg Tablet Extended Release
60 mg PO BID Qty: 60 0RF
metoprolol tartrate 50 mg Tablet
50 mg PO BID Qty: 60 0RF
insulin NPH and regular human 100 unit/mL (70-30) Suspension
21 unit SC BID
acetaminophen 500 mg Tablet
1,000 mg PO Q6HPRN PRN (Reason: mild pain)
Triphrocaps 1 mg Capsule
1 cap PO DAILY
aspirin 81 mg Tablet,Chewable
81 mg PO DAILY Qty: 30 0RF
pantoprazole 40 mg Tablet,Delayed Release (Dr/Ec)
40 mg PO DAILY Qty: 30 0RF
gabapentin 100 mg Capsule
100 mg PO HS Qty: 30 0RF
famotidine 40 mg Tablet
40 mg PO HS
ondansetron 4 mg Tablet,Disintegrating
4 mg PO Q8H PRN (Reason: Nausea)
Discharge Orders:
Discharge Patient (As Directed); Ordered 06/05/24
Ordered By: Velvet Calhoun
Care Plan Goals
Care Plan Goals:
Problem: Readiness for enhanced knowledge related to diagnosis and treatment plan
Goal: Understand your diagnosis and treatment plan needs, including medications if applicable.
Instructions: Know your diagnosis, underlying causes and treatment plan options, including medications if applicable. Consult with your health care team to learn about your diagnosis and treatment plan, including medications if applicable.
Discharge Date and Time
Print Language: YI
--- NOTE | 2024-06-05 15:15 | CM ---
Reviewed chart. Received VNA Consult. Met with Mrs. Velazquez and her son to review discharge plans. He states she is current with a VNA agency. He can not recall the name of the home care agency. Telephone call to Shahab THOMAS to check on home
care agency. The name of the Home Care Agency is [facility], (phone [phone]) and fax number is ([phone]). Telephone call to [facility] to make the referral. They have the authorizations and just asking for the
discharge instructions to be fax to them. Updated family and patient regarding agency. Prior to admission Mrs. Velazquez resides with her daughter in an apartment with two steps to enter. Prior to admission she was independent with ambulation and adls.
She goes to [facility] for outpatient dialysis on Monday, Monday and Monday at 6:00 a.m. Family transport her to outpatient dialysis and a transport company brings her home. She does not have any DME in the home. She has a prescription
plan and uses [facility]. Medical work-up in progress. The discharge plan is to return home with her daughter and resumption of [facility] when medically stable.
--- NOTE | 2024-06-05 16:23 | PTCARENOTE ---
Pt had HD treatment. Pt seen by Drs. Calhoun and Malcolm. Pt walked in halls with PT. Telemetry and IV device removed. Discharge instructions reviewed with pt's son who translated all information to his Mother (they live together and Pt's son looks
after her). All topics reviewed inclusing CHF guidelines, medications and their actions and possible side effects, reporting cares and concerns and follow up appt's. Very good understanding verbalized. Pt escorted out via wheelchair and discharged
to home.
== END 2024-06-05 15:47 | disposition home health service (06) | DRG 291 ==
LOC: IVU 19:49
PROVIDERS: Physician Assistant Medical; ADMITTING PHYSICIAN Internal Medicine; ATTENDING PHYSICIAN Student in an Organized Health Care Education/Training Program; CONSULT PHYSICIAN Internal Medicine Nephrology; EMERGENCY PHYSICIAN Emergency Medicine; FAMILY PHYSICIAN Family Medicine; OTHER PHYSICIAN Internal Medicine Cardiovascular Disease
PROC: 5A1D70Z Performance of Urinary Filtration, Intermittent, Less than 6 Hours Per Day (ICD-10-PCS; 2024-06-05)
DX: I13.2 Hypertensive heart and chronic kidney disease with heart failure and with stage 5 chronic kidney disease, or end stage renal disease (principal); I50.33 Acute on chronic diastolic (congestive) heart failure; N18.6 End stage renal disease; C22.0 Liver cell carcinoma; I31.39 Other pericardial effusion (noninflammatory); I5A Non-ischemic myocardial injury (non-traumatic); E83.39 Other disorders of phosphorus metabolism; D63.1 Anemia in chronic kidney disease; I25.10 Atherosclerotic heart disease of native coronary artery without angina pectoris; E87.5 Hyperkalemia; E78.00 Pure hypercholesterolemia, unspecified; E11.65 Type 2 diabetes mellitus with hyperglycemia; E11.22 Type 2 diabetes mellitus with diabetic chronic kidney disease; E11.319 Type 2 diabetes mellitus with unspecified diabetic retinopathy without macular edema; E11.40 Type 2 diabetes mellitus with diabetic neuropathy, unspecified; Z60.3 Acculturation difficulty; Z90.49 Acquired absence of other specified parts of digestive tract; Z79.4 Long term (current) use of insulin; Z99.2 Dependence on renal dialysis; Z79.82 Long term (current) use of aspirin; Z86.73 Personal history of transient ischemic attack (TIA), and cerebral infarction without residual deficits
CPT/HCPCS: 93308; 71275; 80053; 80069; 82962; 83036; 83880; 84484; 85025; 85027; 85730; 86803; 93005; 96374; 97162; 99285; G0257; Q5106; Q9967

== ENCOUNTER 2024-06-12 14:49 | Inpatient (IN) | payer OTHER, SELFPAY ==
[2024-06-10] VITALS (15 sets, daily range): BP systolic 129–196; BP diastolic 46–71; PULSE 72; O2SAT 94; BMI 26.2
--- NOTE | 2024-06-10 08:15 | ED.GENMED ---
History of Present Illness
General
Chief Complaint: Cardiac Symptoms
Source: patient and family
Exam Limitations: none
Time Seen by Provider: 06/10/24 08:05
Nursing documentation reviewed up to this point in time: agreed with
History of Present Illness
History of Present Illness:
68-year-old female with past medical history of previous stroke CHF hypertension hyperlipidemia end-stage renal disease receiving dialysis Monday. Did not receive dialysis today presenting to the emergency department today with
concerns of left arm sharp pain that radiates through the chest. Was here for very similar symptoms discharged 5 days ago. Had a cardiac catheterization recently that did not show any significant coronary disease, CT PE that did not show any PE.
It was unclear what specifically was causing her chest pain at the time. Went to dialysis today was hypertensive and had pain which prompted her to be sent to the ER. Denies significant shortness of breath nausea vomiting diaphoresis.
Past History
Past History
ED Past Medical History: CVA (Visual issues), HTN, Hypercholesterolemia, IDDM, Renal failure (M-W-F dialysis) and Other (Headaches. Neuropathy, Colitis, )
ED Past Surgical History: Cholecystectomy and Other (AV fistula, Right eye implant)
Social History
Tobacco: Non-smoker
Alcohol: None
Drug: None
Personal:
Living: with family
Employment: Retired
Family History
Family History: Diabetes
Review of Systems
Review of Systems
Allergies reviewed?: Yes
All Other Systems: ROS reviewed and negative except as documented in HPI and ROS
Phy Exam
Physical Exam
Physical Exam:
GENERAL: Alert , in no apparent distress
EYE: pupils equal and reactive
NECK: Supple, no significant adenopathy.
ENT: o/p clr, mmm.
CARDIAC: Regular rate and rhythm .
LUNGS: Clear breath sounds bilaterally, no acute respiratory distress, no wheezes/rales/rhonchi
ABDOMEN: Soft, without focal tenderness, no r/g, no cvat
NEUROLOGICAL: Alert and oriented, no focal neuro deficits
SKIN: Warm and dry, skin intact.
MUSCULOSKELETAL: AV fistula in place to the left bicep region palpable thrill, no edema, well perfused.
PSYCH: Normal and appropriate interaction.
Course
Orders/Labs/Results
Orders:
Orders
06/10/24 07:16
ECG [Electrocardiogram (*1)] Urgent
Reason for Study: Chest Pain
EKG- Treatment ONCE
06/10/24 08:02
Complete Blood Count/With Diff Urgent
Comprehensive Metabolic Panel Urgent
Troponin I Urgent
06/10/24 08:14
Chest [CR Chest - 2 Views ] Urgent
Comment:
Reason For Exam: left cp
Venous Doppler Upr Ext Left [US Periph Venous UPPER Ext LT] Urgent
Comment:
Reason For Exam: left arm pain AC fistula
06/10/24 12:06
Acetaminophen [Tylenol] 1,000 mg PO NOW STA
Mag Hydrox/Al Hydrox/Simeth [Maalox] 30 ml Phenobarb/Hyoscy/Atropine/Scop [] 10 ml PO NOW
06/10/24 12:12
Mag Hydrox/Al Hydrox/Simeth [Maalox] 30 ml .ROUTE .STK-MED ONE
Phenobarb/Hyoscy/Atropine/Scop [] 10 ml .ROUTE .STK-MED ONE
06/10/24 12:15
Pt Eval And Treat Urgent
Activity Level: Ambulate
06/10/24 13:59
Lidocaine [Lidocaine 4% Patch] 1 patch TOPICAL ONCE ONE
Apply Lidocaine patch(s) to:: shoulder
06/10/24 14:28
Case Management Consult ONCE
Case Management Consult: Alf Placement
Abnormal Lab Results
06/10/24
08:02
WBC 12.9 H 10^3/uL
(4.8-10.8)
RBC 3.40 L 10^6/uL
(4.20-5.40)
Hgb 10.0 L g/dL
(12.0-16.0)
Hct 31.6 L %
(37.0-47.0)
MCHC 31.6 L g/dL
(33.0-37.0)
RDW 16.4 H %
(11.5-14.5)
Plt Count 457 H 10^3/uL
(130-400)
Abs Immat Gran (auto) 0.1 H 10^3/uL
(0-0.05)
Absolute Neuts (auto) 8.9 H 10^3/uL
(1.4-6.5)
Absolute Monos (auto) 1.2 H 10^3/uL
(0.1-0.6)
Lymphocytes % 18.4 L %
(20.5-51.1)
Chloride 96 L mmol/L
(98-107)
BUN 70 H mg/dl
(7-17)
Creatinine 11.4 H* mg/dL
(0.6-1.0)
Glucose 281 H mg/dl
(70-99)
Calcium 10.8 H mg/dl
(8.4-10.2)
AST 114 H U/L
(14-36)
ALT 118 H U/L
(0-35)
Alkaline Phosphatase 443 H U/L
(38-126)
Total Protein 9.2 H g/dl
(6.3-8.2)
06/10/24 08:02
06/10/24 08:02
Vital Signs
Initial and Last Documented VS:
Initial Vital Signs
Temp Pulse Resp BP Pulse Ox
98.3 F 83 20 196/70 98
06/10/24 07:14 06/10/24 07:14 06/10/24 07:14 06/10/24 07:14 06/10/24 07:14
Last Documented Vital Signs
Temp Pulse Resp BP Pulse Ox
98.3 F 74 14 167/58 98
06/10/24 07:14 06/10/24 12:26 06/10/24 12:26 06/10/24 14:00 06/10/24 11:15
MDM/Problems Addressed
MDM/Problems Addressed:
68-year-old female presenting to the emergency department today with concerns of sharp chest pain rating to the left arm that recurred after recent hospital stay. It was unclear what specifically was causing the chest pain during recent hospital
stay. She had elevated troponin levels that were not changing over time presumably a false positive as coronary artery disease did not seem to be the likely cause. Was started on Imdur as they were considering microvascular angina. Otherwise CT
PE was also normal few days ago. Here labs showing findings consistent with end-stage renal disease but normal potassium level. No evidence or explanation of emergent symptoms ultrasound without emergent findings chest x-ray unchanged. Patient
still with considerable discomfort to the left shoulder significant difficulty with ambulation. Was seen by PT and needed a large amount of assistance they recommend placement. Patient will be admitted for further monitoring and treatment and
placement.
*Critical Care Note
Total Time (30-74mins, 75-104mins- exclusive of procedures): Not Applicable
ED Attending Note
-
Portions of this chart may have been created with voice recognition software.� Occasional wrong word or��sound alike� substitutions may have occurred due to the inherent limitations of voice recognition software.
Discharge Plan
Departure
Patient Disposition: Admit
Date of Disposition: 06/10/24
Time of Disposition: 15:38
Admit to: Med/Surg
Admit to doctor: Hedy
Presentation/result/management discussed w/ accepting MD/DO: Hospitalist
Patient with high blood pressure during this ER visit?: No
Condition: Good
Discharge Problem:
Arm pain, Ambulatory dysfunction, ESRD (end stage renal disease) on dialysis
Instructions: Muscle, joint, and bone pain - Discharge instructions
Prescriptions:
No Action
cholecalciferol (vitamin D3) [Vitamin D3] 25 mcg (1,000 unit) capsule
25 mcg PO DAILY
calcium acetate(phosphat bind) 667 mg capsule
1,334 mg PO MEALS
Veltassa 16.8 gram powder in packet
16.8 g PO DAILY
nifedipine 60 mg Tablet Extended Release
60 mg PO BID Qty: 60 0RF
metoprolol tartrate 50 mg Tablet
50 mg PO BID Qty: 60 0RF
insulin NPH and regular human 100 unit/mL (70-30) Suspension
21 unit SC BID
acetaminophen 500 mg Tablet
1,000 mg PO Q6HPRN PRN (Reason: mild pain)
Triphrocaps 1 mg Capsule
1 cap PO DAILY
aspirin 81 mg Tablet,Chewable
81 mg PO DAILY Qty: 30 0RF
pantoprazole 40 mg Tablet,Delayed Release (Dr/Ec)
40 mg PO DAILY Qty: 30 0RF
gabapentin 100 mg Capsule
100 mg PO HS Qty: 30 0RF
famotidine 40 mg Tablet
40 mg PO HS
ondansetron 4 mg Tablet,Disintegrating
4 mg PO Q8HPRN PRN (Reason: Nausea)
isosorbide mononitrate 30 mg Tablet Extended Release 24 Hr
30 mg PO DAILY Qty: 30 0RF
Referrals:
Slim Carney MD [Active] - Follow up in 5-7 days
Cal Luque DO [Family Provider] -
Interventions
Interventions:
*Risk Screen - Suicide Last Done: 06/10/24 07:50
*General Assessment Last Done: 06/10/24 07:18
*Neglect/Abuse Screening Last Done: 06/10/24 07:50
*ED- Fall Risk Assessment Last Done: 06/10/24 07:19
*ED COVID-19 Vaccine History Last Done: 06/10/24 07:19
ED- Pulmonary Assessment Last Done: 06/10/24 07:50
ED- Cardiac Assessment Last Done: 06/10/24 07:50
Discharge Date and Time
Print Language: [place]OU[place]
[2024-06-10 08:27] LABS: % Basophils 0.5 % (0-2); % Immature Granulocytes 0.5 % (0-0.5); % Lymphocytes 18.4 % (20.5-51.1); % Monocytes 9.2 % (1.7-9.3); % Neutrophils 69.4 % (42.2-75.2); Absolute Basophils 0.1 10^3/uL (0-0.2); Absolute Eosinophils 0.3 10^3/uL (0-0.7); Absolute Immature Granulocytes 0.1 10^3/uL (0-0.05); Absolute Lymphocytes 2.4 10^3/uL (1.2-3.4); Absolute Monocytes 1.2 10^3/uL (0.1-0.6); Absolute Neutrophils 8.9 10^3/uL (1.4-6.5); Hematocrit 31.6 % (37.0-47.0); Mean Corp Hgb Conc. 31.6 g/dL (33.0-37.0); Mean Corpuscular Hgb 29.4 pg (27.0-31.0); Mean Corpuscular Volume 92.9 fL (81.0-99.0); Mean Platelet Volume 10.4 fL (7.4-10.4); Nucleated Red Blood Cells % 0 %; Platelet Count 457 10^3/uL (130-400); Red Cell Dist. Width 16.4 % (11.5-14.5); White Blood Cell Count 12.9 10^3/uL (4.8-10.8)
[2024-06-10 08:47] LABS: Troponin I < 0.012 ng/ml
[2024-06-10 08:53] LABS: ALT (SGPT) 118 U/L (0-35); AST (SGOT) 114 U/L (14-36); Alkaline Phosphatase 443 U/L (38-126); Blood Urea Nitrogen 70 mg/dl (7-17); Calcium 10.8 mg/dl (8.4-10.2); Carbon Dioxide 25 mmol/L (22-30); Chloride 96 mmol/L (98-107); Estimated Creatinine Clearance 4 ml/min; Glucose 281 mg/dl (70-99); Potassium 5.1 mmol/L (3.5-5.1); Sodium 140 mmol/L (135-145); Total Bilirubin 0.5 mg/dl (0.2-1.3); Total Protein 9.2 g/dl (6.3-8.2); eGFR 3.27
[2024-06-10] MEDS: MAALOX 40 PO (12:14)
[2024-06-10] MEDS: TYLENOL 1000 MG PO (12:14)
[2024-06-10] MEDS: LIDOCAINE 4% PATCH 1 PATCH TOPICAL (15:13)
--- NOTE | 2024-06-10 15:38 | HPS.HSE ---
Family Physician
-
Family Physician: Cal Luque
Chief Complaint
-
neck pain left sided to left arm
History of Present Illness
68-year-old female complaining of left arm radiating from neck into anterior chest, trapezius and down arm. It is increased with movement of her neck to the left she is limited on range of motion due to pain when looking to her left side. The pain
also increases when she walks moving her arms. She has had this pain since 5 days ago. She had prior cardiac cath on 05/02 - 05/04/2024 admission that did not show any significant coronary disease. Her son and daughter are in the room as patient
speaks [place] only the son is translating since his sister also only speaks [place]. He is not sure of which medications the patient should be taking as she had multiple ones added on recent admission I did go over these medications and we will
print out a list to give to him. She had negative CT PE also at that time. It was unclear what was causing her chest pain. Differentials were GERD versus volume overload versus pericarditis. She had peak troponin of 0.235 she was started on
Imdur volume overload was diuresed with hemodialysis. She was sent by dialysis to the ER due to hypertension along with chest pain. Patient denies headache, blurred vision, fever, chest pain, palpitations chills, cough, shortness of breath,
abdominal pain, nausea, vomiting, diarrhea, urinary symptoms.
Patient has past medical history of CVA, HTN, HLD, DM2, ESRD dialysis Monday, AV fistula, headaches, neuropathy, colitis, right eye implant
Medical History
Past Medical History
Past Medical History: Reports Other
Additional Past Medical History:
ESRD on HD (--)
DM-II
Hypertension
Anemia of CKD
Persistent Hyperkalemia
Suspected Hepatocellular Carcinoma (patient not aware per family request)
Volume Overload / CHFpEF
Past Surgical History: Reports Other
Additional Past Surgical History:
LUE AVG
Cholecystectomy
R Eye Surgery
Social History
Tobacco: Non-smoker
Alcohol: None
Drug: None
Personal:
Living: With Family (With her daughter)
Employment: Retired
Family History
Family History: Not pertinent
Allergies / Home Medications
Allergies reflects when Allergies were last updated in [facility].
Home Medications with original date entered in [facility]
Allergy/Medication List:
Allergies
Allergy/AdvReac Type Severity Reaction Status Date / Time
No Known Allergies Allergy Verified 05/02/24 19:48
Home Medications
calcium acetate(phosphat bind) 667 mg capsule 1,334 mg PO MEALS supplement (renal) 02/25/22
cholecalciferol (vitamin D3) 25 mcg (1,000 unit) capsule (Vitamin D3) 25 mcg PO DAILY Supplement 02/25/22
patiromer calcium sorbitex 16.8 gram oral powder packet (Veltassa) 16.8 g PO DAILY hyperkalemia (high potassium) 02/25/22
nifedipine 60 mg tablet,extended release 60 mg PO BID #60 tabs 02/27/22
metoprolol tartrate 50 mg tablet 50 mg PO BID #60 tabs 03/20/24
acetaminophen 500 mg tablet 1,000 mg PO Q6HPRN PRN mild pain 04/24/24
insulin human U-100 NPH-regulr 70-30 mix 100 unit/mL subcutaneous susp 21 unit SC BID Diabetes 04/24/24
vitamin B complex and vitamin C no.20-folic acid 1 mg capsule (Triphrocaps) 1 cap PO DAILY Supplement 04/24/24
aspirin 81 mg chewable tablet 81 mg PO DAILY #30 tabs 05/04/24
gabapentin 100 mg capsule 100 mg PO HS #30 caps 05/04/24
pantoprazole 40 mg tablet,delayed release 40 mg PO DAILY #30 tabs 05/04/24
famotidine 40 mg tablet 40 mg PO HS 06/03/24
isosorbide mononitrate 30 mg tablet,extended release 24 hr 30 mg PO DAILY #30 tabs 06/05/24
ondansetron 4 mg disintegrating tablet 4 mg PO Q8HPRN PRN Nausea 06/05/24
Review of Systems
-
History Source: Patient and Family (Son translating at bedside daughter present speaks [place] is translating to her brother as the mother lives with her)
A 12 point ROS was completed and negative except as noted: Yes
Constitutional: Denies Fever, Fatigue or Chills
EENT: Reports Other (Left-sided paraspinal, trapezius, subclavicular pain radiating to left arm increased with movement of neck, restricted movement to left secondary to pain); Denies Sore Throat or Runny Nose
Respiratory: Denies Cough or Trouble Breathing
Cardiac: Denies Chest Pain, Diaphoresis, Palpitations or Syncope
Abdomen/GI: Denies Abdominal Pain, Nausea, Vomiting, Diarrhea or Constipated
: Denies Dysuria, Frequency, Flank Pain, Incontinence or Difficulty Voiding
Musculoskeletal: Denies Joint Pain or Edema
Skin: Denies Itching or Rash
Neurological: Denies Dizzy, Headache, Weakness or Numbness
Endocrine: Reports No Symptoms
Hematologic/Lymphatic: Reports No Symptoms
Psych: Reports Calm
Physical Exam
Vital Signs
Vital Signs
Temp Pulse Resp BP Pulse Ox
98.3 F 74 14 167/58 98
06/10/24 07:14 06/10/24 12:26 06/10/24 12:26 06/10/24 14:00 06/10/24 11:15
Physical Exam
General: No Fever or Chills
HEENT: NormoCephalic, Anicteric, Moist mucous membranes, PERRLA and Other (Left-sided paraspinal point tenderness, trapezius, subclavicular pain radiating to left arm increased with movement of neck, restricted movement to left secondary to pain)
Respiratory: Clear; No Wheezes, Rales or Rhonchi
Cardiac: S1/S2, Regular Rhythm and Murmur (2/6 systolic); No Rub, Gallop or Peripheral Edema
GI: Soft, Non Tender, Non Distended, Normal Bowel Sounds and No Hepatosplenomegaly
Rectal: Deferred by Provider
Genito-urinary: Deferred by me
Musculoskeletal: No Clubbing, No Cyanosis, No Edema and Other (Left-sided paraspinal point tenderness, trapezius, subclavicular pain radiating to left arm increased with movement of neck, restricted movement to left secondary to pain)
Skin: Warm and Dry; No Rash
Neuro: AO x 3, No Motor Deficits, Cranial Nerves Intact, No Sensory Deficits and Other (Left-sided paraspinal point tenderness, trapezius, subclavicular pain radiating to left arm increased with movement of neck, restricted movement to left
secondary to pain); No Slurred Speech, Facial Droop, Tremors or Sedated
Psych: Calm
Laboratory Results
-
06/10/24 08:02
06/10/24 08:02
Laboratory Results
Total Bilirubin 0.5 mg/dl (0.2-1.3) 06/10/24 08:02
AST 114 U/L (14-36) H 06/10/24 08:02
ALT 118 U/L (0-35) H 06/10/24 08:02
Alkaline Phosphatase 443 U/L (38-126) H 06/10/24 08:02
Troponin I < 0.012 ng/ml 06/10/24 08:02
Data Reviewed
-
Lab Data: Labs Reviewed by me
Impression/Plan
-
Impression/plan:
Observation telemetry
#Acute left arm pain/neck likely secondary to torticollis left-sided
Recent cardiac cath 05/03/2024 showing nonobstructive disease with peak troponin 0.235
Troponin<0.012
- Continue Imdur 30 mg XR daily recently started
-Continue aspirin 81 mg daily
-Continue nifedipine
-Continue metoprolol tartrate
- Follows with [facility]
- Will start Flexeril now and 3 times daily as needed
-Gabapentin 100 mg at was started bedtime 5 days ago
Tylenol 1000 mg p.o. every 6 hours as needed mild pain
- Warm moist heat recommended
- Check x-ray neck
Ultrasound left upper extremity: No sonographic evidence for DVT, patent AV graft within the upper arm
TTE 06/04/2024: EF 60-65%, normal LVSF, trace to small pericardial effusion mostly noted along inferior lateral wall the left ventricle.
CXR: Redemonstration of diffusely increased interstitial and groundglass opacities bilaterally most likely reflective of interstitial edema no pleural effusion
CT chest 06/03/2024: Diffuse groundglass opacities with interlobular septal thickening favored to represent mild/moderate interstitial edema less
likely pneumonia
Mild heterogeneous hypodense lesion within the right hepatic lobe measuring 2.9 cm previously 2.6 cm previously
characterized on prior MRI as hepatocellular carcinoma further evaluation with dedicated MRI abdomen may be considered
Left kidney atrophic
#ESRD on HD ( MOWEFR)
- Missed dialysis today 06/10/2024
- Consult nephrology
- Continue calcium acetate 1334 mg p.o. with meals
#Chronic leukocytosis�unclear
WBC 12.9 <13.5 on 06/05/2024
#Acute on chronic transaminitis known hypodense lesion right hepatic lobe due to known Hepatoocellular carcinoma
- MRI abdomen showed 2.6 cm mass consistent with hepatic carcinoma per daughter this is a known finding not undergoing treatment
- Son at bedside states does not want this worked up
#HTN�labile
BP 196/70 > 167/58 self corrected
- Continue nifedipine 60 mg p.o. twice daily, metoprolol tartrate 50 mg twice daily
#Chronic hyperkalemia
K5.1
-Continue Veltassa 16.8 g p.o. daily
#Anemia of chronic disease
- Hgb stable at 10
#DM2
-BS 280
- Last A1c 7.23 February 2024
-Continue NPH 21 units SQ twice daily
#GERD new diagnosis As of 06/05/2024
-Continue Protonix 40 mg daily, Pepcid 40 mg at bedtime Zofran 4 mg every 8 hours as needed nausea
DVT prophylaxis
Subcu heparin
Full code
--- NOTE | 2024-06-10 16:34 | W.PN.UPDATE ---
Update Note
Progress Note Update
This is an addendum to the H&P written by Karin Joseph on 06/10/2024.� Patient seen and examined independently with FIRE CONTROL TECHNICIAN B.
68-year-old female past medical history of ESRD on hemodialysis Monday, Monday, Monday, diabetes, nonobstructive CAD, hypertension, anemia of chronic disease, hepatocellular carcinoma not worked up, presenting with left arm/neck pain.� Patient is
unable to move her neck to the left.
Similar symptoms 5 days ago and was admitted.� Here cardiac catheterization which showed nonobstructive CAD.� CT PE was negative.
Was hypertensive at dialysis today and did not get dialysis and was sent to the ER.
Vital signs showed blood pressure initially 196/70.� This spontaneously improved.
Labs show blood sugar of 280.� Transaminitis.� Leukocytosis of 12.9.
Chest x-ray shows redemonstration of diffusely increased interstitial groundglass bilateral opacities likely interstitial edema.� Left upper extremity DVT shows no evidence of DVT.
Patient with left-sided torticollis.� Start Flexeril, and recommend application of heat.� Continue gabapentin and Tylenol.� Check neck x-ray.
Patient missed dialysis and has some evidence of volume overload on chest x-ray.� Nephrology consulted for dialysis for tomorrow.�
--- NOTE | 2024-06-10 17:24 | W.CON.NEPH ---
Consultation
-
Date/Time Consultation Requested: 06/10/24 4p
Date/Time Consultation Performed: 06/10/24 5p
Requesting Provider: Dr. Knott
Performing Provider: Dr. Vega
Reason for Consultation: ESRD
Medical History
-
Chief Complaint: HTN
History of Present Illness:
68y F with ESRD on HD MWF at [facility], chronic volume overload, hypertension on multidrug regimen, chronic hyperkalemia on high dose Veltassa, hyperphosphatemia on calcium acetate, and DM-II on insulin who presents to ED after found to be
significantly hypertense at dialysis. She was not dialyzed and sent to ER. She was also noted to be unable to turn her head to the left.
Renal consult for end-stage renal disease Monday last treatment was Monday.
Past Medical History
ESRD on HD [facility]
Hypertension
Anemia of CKD
Persistent Hyperkalemia
Suspected Hepatocellular Carcinoma (patient not aware per family request)
Volume Overload / CHFpEF
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 Last intervention 2m compensation specialist
Diabetes mellitus, multiple microvascular complications, neuropathy, retinopathy and nephropathy.
History of CVA.
Cholecystectomy.
Chronic headaches.
Past Surgical History: Other (LUE AVG Cholecystectomy R Eye Surgery)
Social History
She resides at home with family. She does not smoke nor consume alcohol.
Family History
Reportedly with CKD, hypertension, and diabetes mellitus.
Family History: Not Pertinent
Allergies / Home Medications
Allergy/AdvReac Type Severity Reaction Status Date / Time
No Known Allergies Allergy Verified 05/02/24 19:48
�Medication �Instructions �Recorded �Confirmed �Type
calcium acetate(phosphat bind) 667 1,334 mg PO MEALS supplement 02/25/22 06/10/24 History
mg capsule (renal)
cholecalciferol (vitamin D3) 25 25 mcg PO DAILY Supplement 02/25/22 06/10/24 History
mcg (1,000 unit) capsule (Vitamin
D3)
patiromer calcium sorbitex 16.8 16.8 g PO DAILY hyperkalemia (high 02/25/22 06/10/24 History
gram oral powder packet (Veltassa) potassium)
nifedipine 60 mg tablet,extended 60 mg PO BID #60 tabs 02/27/22 06/10/24 Rx
release
metoprolol tartrate 50 mg tablet 50 mg PO BID #60 tabs 03/20/24 06/10/24 Rx
acetaminophen 500 mg tablet 1,000 mg PO Q6HPRN PRN mild pain 04/24/24 06/10/24 History
insulin human U-100 NPH-regulr 21 unit SC BID Diabetes 04/24/24 06/10/24 History
70-30 mix 100 unit/mL subcutaneous
susp
vitamin B complex and vitamin C 1 cap PO DAILY Supplement 04/24/24 06/10/24 History
no.20-folic acid 1 mg capsule
(Triphrocaps)
aspirin 81 mg chewable tablet 81 mg PO DAILY #30 tabs 05/04/24 06/10/24 Rx
gabapentin 100 mg capsule 100 mg PO HS #30 caps 05/04/24 06/10/24 Rx
pantoprazole 40 mg tablet,delayed 40 mg PO DAILY #30 tabs 05/04/24 06/10/24 Rx
release
famotidine 40 mg tablet 40 mg PO HS 06/03/24 06/10/24 History
isosorbide mononitrate 30 mg 30 mg PO DAILY #30 tabs 06/05/24 06/10/24 Rx
tablet,extended release 24 hr
ondansetron 4 mg disintegrating 4 mg PO Q8HPRN PRN Nausea 06/05/24 06/10/24 History
tablet
Review of Systems
-
no Cp/SOB
All other systems: Negative unless noted
Physical Exam
Vital Signs
Vital Signs
Temp Pulse Resp BP Pulse Ox
98.3 F 67 15 164/62 96
06/10/24 07:14 06/10/24 16:30 06/10/24 15:15 06/10/24 16:00 06/10/24 16:45
Lab Results
WBC 12.9 10^3/uL (4.8-10.8) H 06/10/24 08:02
RBC 3.40 10^6/uL (4.20-5.40) L 06/10/24 08:02
Hgb 10.0 g/dL (12.0-16.0) L 06/10/24 08:02
Hct 31.6 % (37.0-47.0) L 06/10/24 08:02
Plt Count 457 10^3/uL (130-400) H 06/10/24 08:02
Sodium 140 mmol/L (135-145) 06/10/24 08:02
Potassium 5.1 mmol/L (3.5-5.1) 06/10/24 08:02
Chloride 96 mmol/L (98-107) L 06/10/24 08:02
Carbon Dioxide 25 mmol/L (22-30) 06/10/24 08:02
BUN 70 mg/dl (7-17) H 06/10/24 08:02
Creatinine 11.4 mg/dL (0.6-1.0) H* 06/10/24 08:02
eGFR 3.27 06/10/24 08:02
Glucose 281 mg/dl (70-99) H 06/10/24 08:02
Calcium 10.8 mg/dl (8.4-10.2) H 06/10/24 08:02
Albumin 4.0 g/dl (3.5-5.0) 06/10/24 08:02
Physical Exam
Patient is awake alert oriented and in no distress. Mood and affect were pleasant, insight and judgment were good. Pupils are equal round and reactive to light, extraocular movements are intact, sclera were anicteric. Hearing was normal, ears and
nose are intact. Oropharynx was clear. Neck was supple with trachea midline and no thyromegaly. Heart was regular rate and rhythm without rubs. Lower extremities without edema. Lungs were clear to auscultation bilaterally and with normal
excursion. Abdomen was soft, nontender, with normal active bowel sounds, and no hepatosplenomegaly. Skin was without rash and with normal turgor. LUE AVG with thrill.
Data Reviewed
-
Radiology: Image Personally Visualized and interpreted (06/10/24 by my read. vascular prominence, cardiomegaly)
Medical Tests (Nuc Med, Echo etc): Image Personally Visualized and interpreted (06/10/24 by my read, nsr, LVH, repolarization abnormality)
Labs: Labs Reviewed by me
Old Records: Reviewed
Assessment/Plan
-
IMP:
neck pain
ESRD on HD [facility]
Hyperkalemia
Anemia of CKD
DM-II
Abnormal LFTs
Possible hepatocellular carcinoma (patient not aware per family request)
h/o CVA
Hyperphosphatemia
left UE AVG
Plan:
Continue Monday schedule, but HD tomorrow for missed treatment
Veltassa chronic, use lokelma in house
No acute need for dialysis today
Dialysis ordered for tomorrow
pain management per primary team
[2024-06-10] MEDS: FLEXERIL 5 MG PO ×2 (17:43→21:29)
[2024-06-10] MEDS: NEURONTIN 100 MG PO (21:29)
[2024-06-10 21:37] LABS: Glucose - Point of Care 334 mg/dl (70-99)
[2024-06-10] MEDS: NOVOLOG FLEXPEN 5 UNITS SC (22:49)
[2024-06-11] VITALS (24 sets, daily range): BP systolic 98–196; BP diastolic 47–165; BMI 26.2
[2024-06-11 03:44] LABS: Glucose - Point of Care 205 mg/dl (70-99)
[2024-06-11 04:14] LABS: % Basophils 0.5 % (0-2); % Eosinophils 3.3 % (0-6); % Immature Granulocytes 0.6 % (0-0.5); % Lymphocytes 17.2 % (20.5-51.1); % Monocytes 7.8 % (1.7-9.3); % Neutrophils 70.6 % (42.2-75.2); Absolute Basophils 0.1 10^3/uL (0-0.2); Absolute Eosinophils 0.4 10^3/uL (0-0.7); Absolute Immature Granulocytes 0.1 10^3/uL (0-0.05); Absolute Lymphocytes 2.3 10^3/uL (1.2-3.4); Absolute Monocytes 1.1 10^3/uL (0.1-0.6); Absolute Neutrophils 9.5 10^3/uL (1.4-6.5); Hematocrit 27.4 % (37.0-47.0); Hemoglobin 8.9 g/dL (12.0-16.0); Mean Corp Hgb Conc. 32.5 g/dL (33.0-37.0); Mean Corpuscular Hgb 29.7 pg (27.0-31.0); Mean Corpuscular Volume 91.3 fL (81.0-99.0); Mean Platelet Volume 10.2 fL (7.4-10.4); Nucleated Red Blood Cells % 0 %; Platelet Count 415 10^3/uL (130-400); Red Cell Dist. Width 16.3 % (11.5-14.5); White Blood Cell Count 13.4 10^3/uL (4.8-10.8)
[2024-06-11 04:33] LABS: ALT (SGPT) 76 U/L (0-35); AST (SGOT) 47 U/L (14-36); Albumin 3.7 g/dl (3.5-5.0); Alkaline Phosphatase 341 U/L (38-126); Blood Urea Nitrogen 85 mg/dl (7-17); Calcium 9.9 mg/dl (8.4-10.2); Carbon Dioxide 20 mmol/L (22-30); Chloride 100 mmol/L (98-107); Estimated Creatinine Clearance 3 ml/min; Glucose 193 mg/dl (70-99); Magnesium 2.9 mg/dl (1.6-2.3); Potassium 5.5 mmol/L (3.5-5.1); Sodium 139 mmol/L (135-145); Total Bilirubin 0.6 mg/dl (0.2-1.3); Total Protein 8.4 g/dl (6.3-8.2); eGFR 3.01
[2024-06-11 07:49] LABS: Glucose - Point of Care 208 mg/dl (70-99)
[2024-06-11] MEDS: NOVOLOG FLEXPEN-LOW RESISTANCE 2 UNITS SC (08:08)
[2024-06-11] MEDS: VITAMIN D3 (cholecalciferol) 25 MCG PO (08:09)
[2024-06-11] MEDS: FLEXERIL 5 MG PO ×3 (08:09→21:27)
[2024-06-11] MEDS: PROTONIX 40 MG PO (08:09)
[2024-06-11] MEDS: LOPRESSOR 50 MG PO (08:10)
[2024-06-11] MEDS: PROCARDIA XL (EXTENDED RELEASE) 60 MG PO ×2 (08:11→20:08)
[2024-06-11] MEDS: PHOSLO 1334 MG PO ×2 (08:11→18:05)
[2024-06-11] MEDS: LOW STRENGTH ASPIRIN 81 MG PO (08:11)
[2024-06-11] MEDS: HEPARIN 5000 UNITS SC ×2 (08:11→20:16)
[2024-06-11] MEDS: IMDUR (EXTENDED RELEASE) 30 MG PO (08:12)
[2024-06-11] MEDS: NOVOLOG MIX 70/30 FLEXPEN 21 UNITS SC ×2 (08:26→18:02)
[2024-06-11] MEDS: NEPHROCAP 1 CAPSULE PO (08:26)
[2024-06-11] MEDS: TYLENOL 650 MG PO ×2 (08:30→21:27)
--- NOTE | 2024-06-11 08:49 | W.PN.HOSP.TC ---
Today's Communication/Plan
-
Echocardiogram. Hemodialysis. Antihypertensive adjustments. Pain control
Assessment / Plan
Assessment / Plan
Physical exam:
General: Well Developed, Well Nourished and No Apparent Distress
HEENT: Normocephalic, Atraumatic and Moist Mucous Membranes
Respiratory: Clear to Auscultation; Negative Wheezes, Rales or Rhonchi
Cardiac: Regular Rhythm and S1/S2
GI: Soft, Nontender and Nondistended
Musculoskeletal: No Clubbing, No Cyanosis and No Edema
Neuro: Awake, Alert and Oriented
Psych: Calm
A/P:
Chest pain:
Atypical but given her cardiac risk factors cardiology consulted
Appreciated cardiology input
Plan for echocardiogram
Adjusting antihypertensives
PT recommends SNF but family would like to take her home
Left torticollis:
Pain control
PT eval
Discussed with family at bedside
Hypertensive urgency:
Change metoprolol to tartrate to carvedilol
Probably increase isosorbide
Might need to consider dialysis effect on blood pressure as well
Chronic diastolic CHF:
Dialysis take care of volume
GDMT limited by end-stage renal disease
Stage renal disease on hemodialysis:
Hemodialysis per nephrology
Probably hepatocellular carcinoma
DVT prophylaxis:
Heparin SQ
CODE STATUS:
Full code
Total time spent on today's encounter was 52 minutes which included time spent in counseling the patient/family regarding diagnosis and treatment plan as listed above, goals of care, and symptom management. Case was discussed with nursing staff,
specialists, and care coordinators/case management. All labs and imaging personally reviewed by me. Remainder the time spent in detailed review of previous records, lab data, imaging, and other medical provider documentation.
Anticipated Discharge: 24 - 48 hours
Subjective/Interval History
-
Date of Service: June 11, 2024
Patient complains of neck pain and left side. She also complains of chest pain. Blood pressure elevated.
Objective Data
-
Labs:
Laboratory Results
06/11/24
04:00
WBC 13.4 H
Hgb 8.9 L
Hct 27.4 L
Plt Count 415 H
Sodium 139
Potassium 5.5 H
Chloride 100
Carbon Dioxide 20 L
BUN 85 H
Creatinine 12.2 H*
Glucose 193 H
Calcium 9.9
Total Bilirubin 0.6
AST 47 H
ALT 76 H
Alkaline Phosphatase 341 H
Vital Signs:
Vital Signs
Temp Pulse Resp BP Pulse Ox
98.6 F 83 29 189/63 94
06/11/24 07:00 06/11/24 03:30 06/11/24 03:30 06/11/24 00:00 06/11/24 04:03
[2024-06-11] MEDS: DILAUDID 0.25 MG IV (09:21)
--- NOTE | 2024-06-11 09:33 | PTCARENOTE ---
c/o central chest pain. ekg-nsr. notified. trop drawn. Dilaudid ordered and admin. will monitor.
[2024-06-11 09:56] LABS: Troponin I < 0.012 ng/ml
--- NOTE | 2024-06-11 11:21 | CON.CAR ---
Addendum entered and electronically signed by Errol Badillo MD 06/11/24 15:22:
I saw and examined the patient.
The [employer]'s note was reviewed and I agree with the note.
Comment: Namita Velazquez is a 68-year-old female (known to Dr. Sharpe, her primary pack room operator) with CAD (40% just after takeoff of D104/2024), ESRD on HD, prior CVA, HFpEF, hypertension, dyslipidemia, hepatocellular carcinoma with recent admission
for chest pain two weeks ago. She is here because at time of HD she was found to be HTN. We are consulted for CP.
Her CP worsens with movement and troponins are negative x2. In discussion her CP is exacerbated by neck and arm movement most consistent with MSK pain
- CP consistent with MSK pain
- Recent caath showed non-obstructive CAD
- BP improved with HD
- Cont coreg not metop
We will sign off please call with questions/concerns.
Original Note:
Consultation
Consultation Request
Date/Time Consultation Requested: 06/11/2024 09:00
Date/Time Consultation Performed: 06/11/2024 11:15
Requesting Provider: Dr. Thrasher
Performing Provider: CARLOS MANUEL Sherman for Dr. Badillo
Reason for Consultation: Chest pain
Medical History
-
Chief Complaint: Left arm pain and elevated blood pressure
History of Present Illness:
Namita Velazquez is a 68-year-old female (known to Dr. Sharpe, her primary pack room operator) with CAD (40% just after takeoff of D1, 04/2024), ESRD on HD, prior CVA, HFpEF, hypertension, dyslipidemia, hepatocellular carcinoma with recent admission for
chest pain two weeks ago. At that time she had a CT that did not demonstrate a PE, no pericarditis by EKG on exam, no pericardial effusion but was found to have an abnormal troponin. Isosorbide mononitrate 30 mg was added for suspected
microvascular disease. She had a cardiac catheterization in February that did not demonstrate any occlusive disease. Cardiology was consulted for chest pain. She was referred to the emergency department after having elevated blood pressures at
hemodialysis. She has chest pain when she walks. It radiates down her arm. The pain can recur with movement of her left arm. This was at rest. She also endorses left-sided neck pain.
Past Medical History
Past Medical History: CHF, CVA, HTN, Hypercholesterolemia, IDDM, Renal Failure (ESRD on HD) and Other (Hepatocellular carcinoma)
Past Surgical History: Cholecystectomy and Gynecological
Social History
Tobacco: Non-Smoker
Alcohol: None
Personal:
Living: With Family
Employment: Retired
Family History
Family History: Reviewed & Not Pertinent
Allergies / Home Medications
Allergy/AdvReac Type Severity Reaction Status Date / Time
No Known Allergies Allergy Verified 05/02/24 19:48
�Medication �Instructions �Recorded �Confirmed �Type
calcium acetate(phosphat bind) 667 1,334 mg PO MEALS supplement 02/25/22 06/10/24 History
mg capsule (renal)
cholecalciferol (vitamin D3) 25 25 mcg PO DAILY Supplement 02/25/22 06/10/24 History
mcg (1,000 unit) capsule (Vitamin
D3)
patiromer calcium sorbitex 16.8 16.8 g PO DAILY hyperkalemia (high 02/25/22 06/10/24 History
gram oral powder packet (Veltassa) potassium)
nifedipine 60 mg tablet,extended 60 mg PO BID #60 tabs 02/27/22 06/10/24 Rx
release
metoprolol tartrate 50 mg tablet 50 mg PO BID #60 tabs 03/20/24 06/10/24 Rx
acetaminophen 500 mg tablet 1,000 mg PO Q6HPRN PRN mild pain 04/24/24 06/10/24 History
insulin human U-100 NPH-regulr 21 unit SC BID Diabetes 04/24/24 06/10/24 History
70-30 mix 100 unit/mL subcutaneous
susp
vitamin B complex and vitamin C 1 cap PO DAILY Supplement 04/24/24 06/10/24 History
no.20-folic acid 1 mg capsule
(Triphrocaps)
aspirin 81 mg chewable tablet 81 mg PO DAILY #30 tabs 05/04/24 06/10/24 Rx
gabapentin 100 mg capsule 100 mg PO HS #30 caps 05/04/24 06/10/24 Rx
pantoprazole 40 mg tablet,delayed 40 mg PO DAILY #30 tabs 05/04/24 06/10/24 Rx
release
famotidine 40 mg tablet 40 mg PO HS Gastrointestinal Issue 06/03/24 06/10/24 History
isosorbide mononitrate 30 mg 30 mg PO DAILY #30 tabs 06/05/24 06/10/24 Rx
tablet,extended release 24 hr
ondansetron 4 mg disintegrating 4 mg PO Q8HPRN PRN Nausea 06/05/24 06/10/24 History
tablet
Review of Systems
-
History Source: Patient
All other systems: Negative unless noted
Constitutional: Fatigue
EENT: No Symptoms
Respiratory: No Symptoms
Cardiac: Chest Pain (See HPI)
Abdomen/GI: No Symptoms
: No Symptoms
Musculoskeletal: Edema
Skin: No Symptoms
Neurological: No Symptoms
Endocrine: No Symptoms
Hematologic/Lymphatic: No Symptoms
Physical Exam
Vital Signs
Temp Pulse Resp BP Pulse Ox
98.6 F 71 12 194/66 100
06/11/24 07:00 06/11/24 11:00 06/11/24 11:00 06/11/24 08:00 06/11/24 11:00
Lab Results
06/11/24 04:00
06/11/24 04:00
Troponin I < 0.012 ng/ml 06/11/24 09:19
Physical Exam
General: Well Developed, Well Nourished, No Apparent Distress and Comfortable
HEENT: Normocephalic, Anicteric and Moist Mucous Membranes
Respiratory: Clear and Non Labored Respirations
Cardiac: S1/S2 and Regular Rhythm; Negative Peripheral Edema
Breast: Deferred by me
GI: Soft, Non Tender, Non Distended and Normal Bowel Sounds
Rectal: Deferred by Provider
Genito-urinary: No Costovertebral Tender
Musculoskeletal: No Clubbing, No Cyanosis and No Edema
Skin: Warm and Dry
Neuro: Awake and Alert
Hematologic/Lymphatic: No Lymphadenopathy
Psych: Calm
Impression / Plan
-
I/P: 68F with CAD (40% just after takeoff of D1, 04/2024), ESRD on HD, prior CVA, HFpEF, hypertension, dyslipidemia, hepatocellular carcinoma presents with third admission with chest pain in 6 weeks.
Outpatient pack room operator: Dr. Sharpe
Acute hypoxic respiratory failure, in the setting of volume overload, HD per nephrology
Chest pain
-Cardiac catheterization February without significant obstructive disease
-Limited echocardiogram without pericardial effusion
-EKG with chronic findings
-Can increase isosorbide mononitrate to 60 mg
-Troponin <0.012 x 2
-Consider noncardiac cause, pain worse with movement and palpation
Hypertensive urgency
-Stop metoprolol tartrate, start carvedilol, titrate if needed
HFpEF, chronic
-Weight is up without shortness of breath but hypoxia, volume management with dialysis
-GDMT limited by ESRD
-Daily weight and I/O
ESRD on HD Monday/Monday/Monday, nephrology following
Hepatic lobe lesion, right, MRI showed 2.6 cm mass consistent with hepatic carcinoma
Type 2 diabetes mellitus with hyperglycemia, HgbA1c 7.3%
DATA:
Cardiac catheterization, 05/03/2024:
Conclusion:
1. Nonobstructive coronary artery disease as described in a right dominant system
2. Severe systemic hypertension and elevated LVEDP
Recommendations:
1. Secondary prevention of coronary artery disease
2. Treatment of hypertension and possible microvascular angina
[2024-06-11] MEDS: FLEXBUMIN 25% FOR HEMODIALYSIS 12.5 GRAMS IV ×2 (12:15→13:20)
[2024-06-11] MEDS: MANNITOL 25% 12.5 GRAMS IV ×2 (12:20→13:20)
--- NOTE | 2024-06-11 12:41 | CM ---
CM spoke with dtr/Namita as pt [place] speaking
Pt has 10 children and resides with other dtr and her adult grandson in a 1st floor apartment with 1 LILLIE
Pt is indep with use of a WW
Pt attends outpt HD at [facility] MWF 0600 family transport
Pt admitted to the IVU from 06/03-03/07
Dc home with [facility] and remains current
PCP- Cal Luque
SNF recs by PT
Dtr declined SNF noting multiple children and family members will provide / care to pt
She is aware of the physical needs pt will require on dc
Referred back to her VN provider for [facility] p- [phone]
Pt is OBS- OBS notice reviewed over phone
Copy left bedside
Discharge Disposition- SNF refusal, home with family 12/09 and [facility]- fax [phone]
[facility] fax- [phone]
--- NOTE | 2024-06-11 12:56 | W.PN.NEPH.HD ---
Assessment
-
Patient seen on dialysis
Systolic blood pressure stable with UF
Next dialysis will not be until although patient is a Monday schedule due to staffing issues with dialysis nurses
Progress Note - Hemodialysis
-
Date of Service: June 11, 2024
Duration: 30 minutes and 3 hours
Potassium Bath: 3
Calcium Bath: 2.5
Opti-Dialyzer: 160
Ultrafiltration: Other (3 kg)
Blood Flow: 400
Dialysate Flow: 600
Heparin: None
EPO: None
[2024-06-11] MEDS: PHOSLO PO (12:57)
[2024-06-11] MEDS: NOVOLOG FLEXPEN-LOW RESISTANCE SC ×2 (13:29→16:54)
[2024-06-11 13:42] LABS: Glucose - Point of Care 79 mg/dl (70-99)
[2024-06-11 16:05] LABS: Glucose - Point of Care 123 mg/dl (70-99)
[2024-06-11 18:06] LABS: Glucose - Point of Care 190 mg/dl (70-99)
[2024-06-11] MEDS: COREG 6.25 MG PO (20:08)
--- NOTE | 2024-06-11 21:00 | TRANSFER ---
Patient arrived from ED hold via stretcher and ambulated x1 assist with RW to bed. Family at bedside. Nursing assessment completed and as documented, see worklist. Oriented to room, instructed use of call forrester and within reach, VSS, care ongoing.
[2024-06-11] MEDS: NEURONTIN 100 MG PO (21:26)
[2024-06-11] MEDS: PEPCID 20 MG PO (21:26)
[2024-06-11 21:43] LABS: Glucose - Point of Care 153 mg/dl (70-99)
[2024-06-12] VITALS (9 sets, daily range): BP systolic 111–150; BP diastolic 40–76; BMI 23.6; BMI 23.5
[2024-06-12 07:10] LABS: Glucose - Point of Care 150 mg/dl (70-99)
[2024-06-12] MEDS: IMDUR (EXTENDED RELEASE) 60 MG PO (07:56)
[2024-06-12] MEDS: TYLENOL 650 MG PO ×3 (07:56→21:12)
[2024-06-12] MEDS: FLEXERIL 5 MG PO ×3 (07:56→22:22)
[2024-06-12] MEDS: PHOSLO 1334 MG PO ×3 (07:57→17:00)
[2024-06-12] MEDS: PROCARDIA XL (EXTENDED RELEASE) 60 MG PO ×2 (07:57→20:51)
[2024-06-12] MEDS: NEPHROCAP 1 CAPSULE PO (07:58)
[2024-06-12] MEDS: LOW STRENGTH ASPIRIN 81 MG PO (07:58)
[2024-06-12] MEDS: PROTONIX 40 MG PO (07:58)
[2024-06-12] MEDS: VITAMIN D3 (cholecalciferol) 25 MCG PO (07:58)
[2024-06-12] MEDS: COREG 6.25 MG PO ×2 (07:58→20:51)
[2024-06-12] MEDS: HEPARIN 5000 UNITS SC ×2 (07:59→20:50)
[2024-06-12 08:22] LABS: % Basophils 0.8 % (0-2); % Eosinophils 4.3 % (0-6); % Immature Granulocytes 0.5 % (0-0.5); % Lymphocytes 19.4 % (20.5-51.1); % Monocytes 11.6 % (1.7-9.3); % Neutrophils 63.4 % (42.2-75.2); Absolute Basophils 0.1 10^3/uL (0-0.2); Absolute Eosinophils 0.5 10^3/uL (0-0.7); Absolute Immature Granulocytes 0.1 10^3/uL (0-0.05); Absolute Monocytes 1.2 10^3/uL (0.1-0.6); Absolute Neutrophils 6.7 10^3/uL (1.4-6.5); Hematocrit 31.1 % (37.0-47.0); Hemoglobin 9.8 g/dL (12.0-16.0); Mean Corp Hgb Conc. 31.5 g/dL (33.0-37.0); Mean Corpuscular Hgb 29.2 pg (27.0-31.0); Mean Corpuscular Volume 92.6 fL (81.0-99.0); Mean Platelet Volume 10.2 fL (7.4-10.4); Nucleated Red Blood Cells % 0 %; Platelet Count 431 10^3/uL (130-400); Red Blood Cell Count 3.36 10^6/uL (4.20-5.40); Red Cell Dist. Width 16.2 % (11.5-14.5); White Blood Cell Count 10.5 10^3/uL (4.8-10.8)
[2024-06-12] MEDS: NOVOLOG FLEXPEN-LOW RESISTANCE 1 UNITS SC (08:40)
[2024-06-12] MEDS: NOVOLOG MIX 70/30 FLEXPEN 21 UNITS SC ×2 (08:41→16:58)
--- NOTE | 2024-06-12 09:23 | W.PN.HOSP.TC ---
Today's Communication/Plan
-
Adjustment of pain medications.
Assessment / Plan
Assessment / Plan
Physical exam:
General: Well Developed, Well Nourished and No Apparent Distress
HEENT: Normocephalic, Atraumatic and Moist Mucous Membranes
Respiratory: Clear to Auscultation; Negative Wheezes, Rales or Rhonchi
Cardiac: Regular Rhythm and S1/S2
GI: Soft, Nontender and Nondistended
Musculoskeletal: No Clubbing, No Cyanosis and No Edema
Neuro: Awake, Alert and Oriented
Psych: Calm
A/P:
Chest pain:
Atypical but given her cardiac risk factors cardiology consulted
Appreciated cardiology input
Plan for echocardiogram
Adjusting antihypertensives
PT recommends SNF but family would like to take her home
Left torticollis:
Pain control--> will add Oxycodone 5 mg for moderate pain and 10 mg for severe pain and will use one-time dose stat of 10 mg now. Will add IV Dilaudid for breakthrough pain.
PT eval
Discussed with family at bedside
Hypertensive urgency:
Improved
Changed metoprolol to tartrate to carvedilol
Probably increase isosorbide
Might need to consider dialysis effect on blood pressure as well
Chronic diastolic CHF:
Dialysis take care of volume
GDMT limited by end-stage renal disease
Stage renal disease on hemodialysis:
Hemodialysis per nephrology
Probably hepatocellular carcinoma
DVT prophylaxis:
Heparin SQ
CODE STATUS:
Full code
Anticipated Discharge: 24 - 48 hours
Subjective/Interval History
-
Date of Service: June 12, 2024
Patient still in significant amount of pain. No shortness of breath.
Objective Data
-
Labs:
Laboratory Results
06/12/24
07:25
WBC 10.5
Hgb 9.8 L
Hct 31.1 L
Plt Count 431 H
Sodium Pending
Potassium Pending
Chloride Pending
Carbon Dioxide Pending
BUN Pending
Creatinine Pending
Glucose Pending
Calcium Pending
Vital Signs:
Vital Signs
Temp Pulse Resp BP Pulse Ox
98.1 F 75 18 133/55 99
06/12/24 07:40 06/12/24 07:40 06/12/24 07:40 06/12/24 07:40 06/12/24 07:40
I&O
06/11/24 06/12/24 06/13/24
06:59 06:59 06:59
Intake Total 480 / 480
Balance 480 / 480
[2024-06-12 09:28] LABS: Blood Urea Nitrogen 39 mg/dl (7-17); Calcium 9.9 mg/dl (8.4-10.2); Carbon Dioxide 25 mmol/L (22-30); Chloride 99 mmol/L (98-107); Estimated Creatinine Clearance 5 ml/min; Glucose 133 mg/dl (70-99); Potassium 4.7 mmol/L (3.5-5.1); Sodium 141 mmol/L (135-145); eGFR 4.92
[2024-06-12 10:46] LABS: Glucose - Point of Care 125 mg/dl (70-99)
[2024-06-12] MEDS: NOVOLOG FLEXPEN-LOW RESISTANCE SC ×2 (11:11→16:57)
[2024-06-12] MEDS: ROXICODONE 10 MG PO (11:11)
[2024-06-12] MEDS: MIRALAX 17 GRAMS PO (12:52)
[2024-06-12] MEDS: COLACE 100 MG PO ×2 (12:52→20:51)
--- NOTE | 2024-06-12 15:24 | W.PN.NEPH.PH ---
Today's Communication / Plan
-
Dialysis tomorrow
Assessment/Plan
-
IMP:
neck pain
ESRD on HD [facility] deny
Hyperkalemia
Anemia of CKD
DM-II
Abnormal LFTs
Possible hepatocellular carcinoma (patient not aware per family request)
h/o CVA
Hyperphosphatemia
left UE AVG
Plan:
Continue Monday schedule
Veltassa chronic, use lokelma in house
No acute need for dialysis today
Dialysis ordered for tomorrow
Patient is currently off schedule and will get dialysis pending discharge will adjust
-
-
Date of Service: June 12, 2024
CC / HPI / ROS
-
No chest pain or shortness of breath
No overnight events
Labs
-
Labs:
WBC 10.5 10^3/uL (4.8-10.8) 06/12/24 07:25
RBC 3.36 10^6/uL (4.20-5.40) L 06/12/24 07:25
Hgb 9.8 g/dL (12.0-16.0) L 06/12/24 07:25
Hct 31.1 % (37.0-47.0) L 06/12/24 07:25
Plt Count 431 10^3/uL (130-400) H 06/12/24 07:25
Sodium 141 mmol/L (135-145) 06/12/24 07:25
Potassium 4.7 mmol/L (3.5-5.1) 06/12/24 07:25
Chloride 99 mmol/L (98-107) 06/12/24 07:25
Carbon Dioxide 25 mmol/L (22-30) 06/12/24 07:25
BUN 39 mg/dl (7-17) H 06/12/24 07:25
Creatinine 8.1 mg/dL (0.6-1.0) H* 06/12/24 07:25
eGFR 4.92 06/12/24 07:25
Glucose 133 mg/dl (70-99) H 06/12/24 07:25
Calcium 9.9 mg/dl (8.4-10.2) 06/12/24 07:25
Albumin 3.7 g/dl (3.5-5.0) 06/11/24 04:00
Physical Exam
-
Vital Signs:
Vital Signs
Temp Pulse Resp BP Pulse Ox
98.1 F 73 20 117/48 98
06/12/24 14:54 06/12/24 14:54 06/12/24 14:54 06/12/24 14:54 06/12/24 14:54
Cardiovascular:: Regular rate and rhythm
Respiratory:: Bilateral: CTA
Lung Excursion:: Normal
Abdomen:: Nontender and Soft
Bowel Sounds:: Normal
Extremity Edema:: None: Bilateral:
[2024-06-12 16:39] LABS: Glucose - Point of Care 123 mg/dl (70-99)
[2024-06-12] MEDS: NEURONTIN 100 MG PO (22:22)
[2024-06-12 22:31] LABS: Glucose - Point of Care 306 mg/dl (70-99)
[2024-06-12] MEDS: NOVOLOG FLEXPEN 4 UNITS SC (23:41)
[2024-06-13] VITALS (7 sets, daily range): BP systolic 104–175; BP diastolic 46–73; PULSE 80; O2SAT 95; BMI 23.3
--- NOTE | 2024-06-13 03:24 | DOWNTIME ---
There was a [employer] Downtime on 06/13/2024 from 0200 to 06/14/2023 at 0318 . Downtime documentation of patient's care, including medication administrations, has been reconciled in the electronic record per guidelines. Refer to the
patient's paper chart under the miscellaneous tab to see printed paper medication records and downtime forms.
[2024-06-13 07:58] LABS: Glucose - Point of Care 293 mg/dl (70-99)
[2024-06-13] MEDS: COLACE 100 MG PO ×2 (08:18→20:32)
[2024-06-13] MEDS: NEPHROCAP 1 CAPSULE PO (08:18)
[2024-06-13] MEDS: VITAMIN D3 (cholecalciferol) 25 MCG PO (08:18)
[2024-06-13] MEDS: PHOSLO 1334 MG PO ×3 (08:18→16:41)
[2024-06-13] MEDS: MIRALAX 17 GRAMS PO (08:18)
[2024-06-13] MEDS: LOW STRENGTH ASPIRIN 81 MG PO (08:18)
[2024-06-13] MEDS: COREG 6.25 MG PO ×2 (08:18→20:31)
[2024-06-13] MEDS: PROCARDIA XL (EXTENDED RELEASE) 60 MG PO ×2 (08:18→20:33)
[2024-06-13] MEDS: FLEXERIL 5 MG PO ×3 (08:18→21:52)
[2024-06-13] MEDS: HEPARIN 5000 UNITS SC ×2 (08:19→20:33)
[2024-06-13] MEDS: NOVOLOG FLEXPEN-LOW RESISTANCE 3 UNITS SC (08:19)
[2024-06-13] MEDS: PROTONIX 40 MG PO (08:19)
[2024-06-13] MEDS: NOVOLOG MIX 70/30 FLEXPEN 21 UNITS SC ×2 (08:20→16:46)
[2024-06-13] MEDS: IMDUR (EXTENDED RELEASE) 60 MG PO (08:23)
[2024-06-13] MEDS: TYLENOL 650 MG PO (08:31)
--- NOTE | 2024-06-13 08:39 | W.PN.HOSP.TC ---
Today's Communication/Plan
-
Pain control
Assessment / Plan
Assessment / Plan
Physical exam:
General: Well Developed, Well Nourished and No Apparent Distress
HEENT: Normocephalic, Atraumatic and Moist Mucous Membranes
Respiratory: Clear to Auscultation; Negative Wheezes, Rales or Rhonchi
Cardiac: Regular Rhythm and S1/S2
GI: Soft, Nontender and Nondistended
Musculoskeletal: No Clubbing, No Cyanosis and No Edema
Neuro: Awake, Alert and Oriented
Psych: Calm
A/P:
Chest pain:
Atypical but given her cardiac risk factors cardiology consulted
Appreciated cardiology input
Reviewed results of echocardiogram
Adjusted antihypertensives per cardio
PT recommends SNF but family would like to take her home
Discussed with family at bedside today
Left torticollis:
Pain control--> added oxycodone 5 mg for moderate pain and 10 mg for severe pain and will use one-time dose stat of 10 mg now. Added IV Dilaudid for breakthrough pain. Will give 1 more day for pain control
PT eval
Discussed with family at bedside
Hypertensive urgency:
Improved
Changed metoprolol to carvedilol
Increased isosorbide
Might need to consider dialysis effect on blood pressure as well
Chronic diastolic CHF:
Dialysis take care of volume
GDMT limited by end-stage renal disease
Stage renal disease on hemodialysis:
Hemodialysis per nephrology
Probably hepatocellular carcinoma
DVT prophylaxis:
Heparin SQ
CODE STATUS:
Full code
Anticipated Discharge: Within 24 hours
Subjective/Interval History
-
Date of Service: June 13, 2024
Pain still bothering her but is decreasing in intensity with current pain regimen.
Objective Data
-
Labs:
Laboratory Results
06/13/24
07:56
Hgb Pending
Hct Pending
Sodium Pending
Potassium Pending
Chloride Pending
Carbon Dioxide Pending
Vital Signs:
Vital Signs
Temp Pulse Resp BP Pulse Ox
99.0 F 86 18 138/51 95
06/13/24 07:13 06/13/24 08:18 06/13/24 07:13 06/13/24 08:18 06/13/24 07:13
I&O
06/12/24 06/13/24 06/14/24
06:59 06:59 06:59
Intake Total 480 / 480 1440 / 1440
Balance 480 / 480 1440 / 1440
[2024-06-13 08:54] LABS: Hematocrit 28.5 % (37.0-47.0); Hemoglobin 9.4 g/dL (12.0-16.0)
[2024-06-13 10:09] LABS: Carbon Dioxide 21 mmol/L (22-30); Chloride 98 mmol/L (98-107); Potassium 5.7 mmol/L (3.5-5.1); Sodium 138 mmol/L (135-145)
--- NOTE | 2024-06-13 10:58 | CM ---
CM reviewed chart, received TT from CM UR, patient switched to inpatient status. Patient seen bedside sleeping, family bedside. Family confirms patient is current with VN, denies needs from CM at this time. CM will continue to follow for all
discharge planning needs.
Plan- SNF refusal, home with family 12/09 and [facility]- fax [phone]
[facility] fax- [phone]
[2024-06-13 12:08] LABS: Glucose - Point of Care 429 mg/dl (70-99)
[2024-06-13 13:10] LABS: Glucose 357 mg/dl (70-99)
[2024-06-13] MEDS: NOVOLOG FLEXPEN-LOW RESISTANCE 5 UNITS SC (13:11)
[2024-06-13] MEDS: MANNITOL 25% 12.5 GRAMS IV ×2 (13:30→14:55)
[2024-06-13] MEDS: FLEXBUMIN 25% FOR HEMODIALYSIS 12.5 GRAMS IV ×2 (13:35→14:56)
[2024-06-13] MEDS: ProAmatine 5 MG PO (13:45)
[2024-06-13] MEDS: RETACRIT 4000 UNITS IV (13:53)
--- NOTE | 2024-06-13 15:37 | W.PN.NEPH.HD ---
Assessment
-
Patient seen on dialysis blood pressure drops is a normally does given albumin and mannitol with improvement.
Ultrafiltration 1 to 1.5 L. Patient is otherwise comfortable no chest pain or shortness of breath/ interviewed in Malagasy
Progress Note - Hemodialysis
-
Date of Service: June 13, 2024
Duration: 30 minutes and 3 hours
Potassium Bath: 3
Calcium Bath: 2.5
Opti-Dialyzer: 160
Ultrafiltration: Other (3 kg)
Blood Flow: 400
Dialysate Flow: 600
Heparin: None
EPO: None
[2024-06-13 16:04] LABS: Glucose - Point of Care 211 mg/dl (70-99)
[2024-06-13] MEDS: ROXICODONE 5 MG PO (16:43)
[2024-06-13] MEDS: NOVOLOG FLEXPEN-LOW RESISTANCE 2 UNITS SC (16:45)
[2024-06-13] MEDS: PEPCID 20 MG PO (21:55)
[2024-06-13] MEDS: NEURONTIN 100 MG PO (21:55)
[2024-06-13 22:28] LABS: Glucose - Point of Care 250 mg/dl (70-99)
[2024-06-14 03:26] VITALS: BP 145/56
[2024-06-14 06:00] VITALS: BMI 23.9
[2024-06-14 07:11] VITALS: BP 100/69
[2024-06-14 07:45] LABS: Glucose - Point of Care 234 mg/dl (70-99)
[2024-06-14] MEDS: NEPHROCAP 1 CAPSULE PO (08:03)
[2024-06-14] MEDS: HEPARIN 5000 UNITS SC ×2 (08:03→20:15)
[2024-06-14] MEDS: MIRALAX 17 GRAMS PO (08:03)
[2024-06-14] MEDS: PHOSLO 1334 MG PO ×3 (08:04→16:52)
[2024-06-14] MEDS: IMDUR (EXTENDED RELEASE) PO (08:04)
[2024-06-14] MEDS: PROCARDIA XL (EXTENDED RELEASE) PO (08:04)
[2024-06-14] MEDS: FLEXERIL 5 MG PO ×3 (08:04→22:07)
[2024-06-14] MEDS: PROTONIX 40 MG PO (08:05)
[2024-06-14] MEDS: COREG PO (08:05)
[2024-06-14] MEDS: VITAMIN D3 (cholecalciferol) 25 MCG PO (08:05)
[2024-06-14] MEDS: LOW STRENGTH ASPIRIN 81 MG PO (08:05)
[2024-06-14] MEDS: COLACE 100 MG PO ×2 (08:05→20:15)
[2024-06-14] MEDS: NOVOLOG MIX 70/30 FLEXPEN 21 UNITS SC ×2 (08:08→16:54)
[2024-06-14] MEDS: NOVOLOG FLEXPEN-LOW RESISTANCE 2 UNITS SC ×2 (08:08→16:53)
[2024-06-14] MEDS: ROXICODONE 5 MG PO ×2 (08:17→16:52)
[2024-06-14 08:43] LABS: Hematocrit 29.5 % (37.0-47.0); Hemoglobin 9.5 g/dL (12.0-16.0)
--- NOTE | 2024-06-14 08:48 | W.PN.HOSP.TC ---
Today's Communication/Plan
-
Pain control. Discharge planning
Assessment / Plan
Assessment / Plan
Physical exam:
General: Well Developed, Well Nourished and No Apparent Distress
HEENT: Normocephalic, Atraumatic and Moist Mucous Membranes
Respiratory: Clear to Auscultation; Negative Wheezes, Rales or Rhonchi
Cardiac: Regular Rhythm and S1/S2
GI: Soft, Nontender and Nondistended
Musculoskeletal: No Clubbing, No Cyanosis and No Edema
Neuro: Awake, Alert and Oriented
Psych: Calm
A/P:
Chest pain:
Atypical but given her cardiac risk factors cardiology consulted
Appreciated cardiology input
Reviewed results of echocardiogram
Adjusted antihypertensives per cardio
PT recommends SNF but family would like to take her home
Discussed with family at bedside today
Left torticollis:
Pain control--> added oxycodone 5 mg for moderate pain and 10 mg for severe pain and will use one-time dose stat of 10 mg now. Added IV Dilaudid for breakthrough pain. Will give 1 more day for pain control
PT eval
Discussed with family at bedside
Hypertensive urgency:
Improved
Changed metoprolol to carvedilol
Increased isosorbide
Might need to consider dialysis effect on blood pressure as well
Chronic diastolic CHF:
Dialysis take care of volume
GDMT limited by end-stage renal disease
Stage renal disease on hemodialysis:
Hemodialysis per nephrology
Probably hepatocellular carcinoma
DVT prophylaxis:
Heparin SQ
CODE STATUS:
Full code
Anticipated Discharge: Within 24 hours
Subjective/Interval History
-
Date of Service: June 14, 2024
Patient pain better overall but not quite ready yet to go home
Objective Data
-
Labs:
Laboratory Results
06/14/24
07:09
Hgb 9.5 L
Hct 29.5 L
Sodium Pending
Potassium Pending
Chloride Pending
Carbon Dioxide Pending
Vital Signs:
Vital Signs
Temp Pulse Resp BP Pulse Ox
98.2 F 76 18 100/69 96
06/14/24 07:11 06/14/24 08:04 06/14/24 07:11 06/14/24 08:04 06/14/24 07:11
I&O
06/13/24 06/14/24 06/15/24
06:59 06:59 06:59
Intake Total 1440 / 1440 480 / 480
Balance 1440 / 1440 480 / 480
[2024-06-14 09:14] LABS: Carbon Dioxide 26 mmol/L (22-30); Chloride 98 mmol/L (98-107); Potassium 5.1 mmol/L (3.5-5.1); Sodium 141 mmol/L (135-145)
[2024-06-14 11:01] VITALS: BP 145/55
[2024-06-14 11:57] LABS: Glucose - Point of Care 111 mg/dl (70-99)
[2024-06-14] MEDS: NOVOLOG FLEXPEN-LOW RESISTANCE SC (12:04)
--- NOTE | 2024-06-14 12:57 | CM ---
Addendum entered by Margie House 06/14/24 13:00:
Family reports they will provide transportation home.
Original Note:
CM reviewed chart, patient seen bedside with family, Nurse Liana assisted with translation. Patient plan remains home with [facility], outpatient dialysis. Family to transport home. Plan for dialysis tomorrow. Clinicals faxed to outpatient
Dialysis. Update to [facility] via [facility]. IMM reviewed verbally, provided with copy, placed in chart. CM will continue to follow for all discharge planning needs.
Plan; home with family 12/09 and [facility], outpatient dialysis
[facility]- fax [phone]
[facility] fax- [phone]
--- NOTE | 2024-06-14 13:57 | W.PN.NEPH.PH ---
Today's Communication / Plan
-
HD tomorrow
Assessment/Plan
-
IMP:
neck pain
ESRD on HD [facility]
Hyperkalemia
Anemia of CKD
DM-II
Abnormal LFTs
Possible hepatocellular carcinoma (patient not aware per family request)
h/o CVA
Hyperphosphatemia
left UE AVG
Plan:
Continue Monday schedule
HD tomorrow, orders provided
Veltassa chronic, use lokelma in house
-
-
Date of Service: June 14, 2024
CC / HPI / ROS
-
No chest pain or shortness of breath
No overnight events
Labs
-
Labs:
WBC 10.5 10^3/uL (4.8-10.8) 06/12/24 07:25
RBC 3.36 10^6/uL (4.20-5.40) L 06/12/24 07:25
Hgb 9.5 g/dL (12.0-16.0) L 06/14/24 07:09
Hct 29.5 % (37.0-47.0) L 06/14/24 07:09
Plt Count 431 10^3/uL (130-400) H 06/12/24 07:25
Sodium 141 mmol/L (135-145) 06/14/24 07:09
Potassium 5.1 mmol/L (3.5-5.1) 06/14/24 07:09
Chloride 98 mmol/L (98-107) 06/14/24 07:09
Carbon Dioxide 26 mmol/L (22-30) 06/14/24 07:09
BUN 39 mg/dl (7-17) H 06/12/24 07:25
Creatinine 8.1 mg/dL (0.6-1.0) H* 06/12/24 07:25
eGFR 4.92 06/12/24 07:25
Glucose 357 mg/dl (70-99) H 06/13/24 12:44
Calcium 9.9 mg/dl (8.4-10.2) 06/12/24 07:25
Albumin 3.7 g/dl (3.5-5.0) 06/11/24 04:00
Physical Exam
-
Vital Signs:
Vital Signs
Temp Pulse Resp BP Pulse Ox
98.3 F 76 18 145/55 97
06/14/24 11:01 06/14/24 11:01 06/14/24 11:01 06/14/24 11:01 06/14/24 11:01
Cardiovascular:: Regular rate and rhythm
Respiratory:: Bilateral: CTA
Lung Excursion:: Normal
Abdomen:: Nontender and Soft
Bowel Sounds:: Normal
Extremity Edema:: None: Bilateral:
[2024-06-14 16:23] LABS: Glucose - Point of Care 217 mg/dl (70-99)
[2024-06-14 16:46] VITALS: BP 148/60
[2024-06-14 19:00] VITALS: BP 168/58
[2024-06-14] MEDS: COREG 6.25 MG PO (20:15)
[2024-06-14] MEDS: PROCARDIA XL (EXTENDED RELEASE) 60 MG PO (20:16)
[2024-06-14 21:53] LABS: Glucose - Point of Care 139 mg/dl (70-99)
[2024-06-14] MEDS: NEURONTIN 100 MG PO (22:03)
[2024-06-14 23:00] VITALS: BP 166/60
[2024-06-15] VITALS: BP 166/60
[2024-06-15 03:00] VITALS: BP 164/64
[2024-06-15 06:00] VITALS: BMI 23.4
[2024-06-15 07:09] VITALS: BP 114/75
[2024-06-15 07:39] LABS: Glucose - Point of Care 241 mg/dl (70-99)
[2024-06-15] MEDS: NEPHROCAP 1 CAPSULE PO (08:40)
[2024-06-15] MEDS: NOVOLOG FLEXPEN-LOW RESISTANCE 2 UNITS SC (08:40)
[2024-06-15] MEDS: PHOSLO 1334 MG PO ×2 (08:41→17:07)
[2024-06-15] MEDS: PROTONIX 40 MG PO (08:41)
[2024-06-15] MEDS: IMDUR (EXTENDED RELEASE) 60 MG PO (08:41)
[2024-06-15] MEDS: COREG 6.25 MG PO (08:41)
[2024-06-15] MEDS: COLACE 100 MG PO (08:42)
[2024-06-15] MEDS: PROCARDIA XL (EXTENDED RELEASE) 60 MG PO (08:42)
[2024-06-15] MEDS: HEPARIN 5000 UNITS SC (08:42)
[2024-06-15] MEDS: VITAMIN D3 (cholecalciferol) 25 MCG PO (08:42)
[2024-06-15] MEDS: MIRALAX 17 GRAMS PO (08:42)
[2024-06-15] MEDS: NOVOLOG MIX 70/30 FLEXPEN 21 UNITS SC ×2 (08:43→17:06)
[2024-06-15] MEDS: LOW STRENGTH ASPIRIN 81 MG PO (08:43)
[2024-06-15] MEDS: FLEXERIL 5 MG PO ×2 (08:43→17:06)
[2024-06-15 08:46] LABS: Hematocrit 31.1 % (37.0-47.0)
[2024-06-15 09:01] LABS: Carbon Dioxide 27 mmol/L (22-30); Chloride 98 mmol/L (98-107); Potassium 5.7 mmol/L (3.5-5.1); Sodium 139 mmol/L (135-145)
[2024-06-15] MEDS: TYLENOL 650 MG PO (09:06)
--- NOTE | 2024-06-15 10:02 | W.PN.HOSP.TC ---
Today's Communication/Plan
-
Hemodialysis today. Discharge planning
Assessment / Plan
Assessment / Plan
Physical exam:
General: Well Developed, Well Nourished and No Apparent Distress
HEENT: Normocephalic, Atraumatic and Moist Mucous Membranes
Respiratory: Clear to Auscultation; Negative Wheezes, Rales or Rhonchi
Cardiac: Regular Rhythm and S1/S2
GI: Soft, Nontender and Nondistended
Musculoskeletal: No Clubbing, No Cyanosis and No Edema
Neuro: Awake, Alert and Oriented
Psych: Calm
A/P:
Chest pain:
Atypical but given her cardiac risk factors cardiology consulted
Appreciated cardiology input
Reviewed results of echocardiogram
Adjusted antihypertensives per cardio
PT recommends SNF but family would like to take her home
Discussed with family at bedside today
Left torticollis:
Pain control--> added oxycodone 5 mg for moderate pain and 10 mg for severe pain and will use one-time dose stat of 10 mg now. Added IV Dilaudid for breakthrough pain. Will give 1 more day for pain control
PT eval
Discussed with family at bedside
Hypertensive urgency:
Improved
Changed metoprolol to carvedilol
Increased isosorbide
Might need to consider dialysis effect on blood pressure as well
Hyperkalemia:
She is on Veltassa as outpatient so we will put her on Lokelma
Chronic diastolic CHF:
Dialysis take care of volume
GDMT limited by end-stage renal disease
Stage renal disease on hemodialysis:
Hemodialysis per nephrology
Probably hepatocellular carcinoma
DVT prophylaxis:
Heparin SQ
CODE STATUS:
Full code
Anticipated Discharge: Today
Subjective/Interval History
-
Date of Service: June 15, 2024
Patient states pain is much better
Objective Data
-
Labs:
Laboratory Results
06/15/24
08:07
Hgb 10.0 L
Hct 31.1 L
Sodium 139
Potassium 5.7 H
Chloride 98
Carbon Dioxide 27
Vital Signs:
Vital Signs
Temp Pulse Resp BP Pulse Ox
98.7 F 81 18 114/75 93
06/15/24 07:09 06/15/24 07:09 06/15/24 07:09 06/15/24 07:09 06/15/24 07:09
I&O
06/14/24 06/15/24 06/16/24
06:59 06:59 06:59
Intake Total 480 / 480 240 / 240
Balance 480 / 480 240 / 240
[2024-06-15 11:42] VITALS: BP 121/52
[2024-06-15 11:56] LABS: Glucose - Point of Care 126 mg/dl (70-99)
[2024-06-15] MEDS: NOVOLOG FLEXPEN-LOW RESISTANCE SC (12:44)
[2024-06-15] MEDS: MANNITOL 25% 12.5 GRAMS IV ×2 (12:56→14:59)
[2024-06-15] MEDS: RETACRIT 4000 UNITS IV (12:56)
[2024-06-15] MEDS: PHOSLO PO (13:03)
[2024-06-15] MEDS: FLEXBUMIN 25% FOR HEMODIALYSIS 12.5 GRAMS IV ×2 (13:34→13:50)
--- NOTE | 2024-06-15 14:05 | W.DCSUMMARY ---
Discharge Summary
Discharge Data
Date of Admission: 06/12/24
Date of Discharge: 06/15/24
-
Pending Results: No
Hospital Course
Patient is 68 years old female history of CAD, end-stage renal disease on hemodialysis, CVA, CHF, hypertension, dyslipidemia, hepatocellular carcinoma came into the hospital with torticollis, chest pain, and hypertensive urgency. Patient pain was
consistent with musculoskeletal etiology. Cardiology evaluated the patient and also adjusted her hypertensive regimen. Of note she had a recent cardiac catheterization that showed nonobstructive CAD and her troponins were normal during this
hospital stay. Patient pain improved with current pain regimen and she will continue on current regimen as outpatient with close follow-up with primary care physician. Otherwise, patient hemodynamically stable and she will be discharged in stable
condition today.
Discharge duration: 35 minutes
Discharge Plan
-
Patient Disposition: Home with Home Care
Discharge Diagnosis/Procedures: Torticollis. Chest pain. Hypertensive urgency. End-stage renal disease on hemodialysis.
Diet: Low Cholesterol, Low Sodium and Restrict fluids to 64 oz
Activity: As tolerated
Blood Work: Please PCP to order CBC, BMP within 1 week
Referrals:
Errol Badillo MD [Active] - in one to two weeks
Cal Luque DO [Family Provider] - in less than 1 week
Maureen Bueno MD [Active] - in two to four weeks
Prescriptions:
New
carvedilol 6.25 mg Tablet
6.25 mg PO BID 30 Days Qty: 60 0RF
cyclobenzaprine 10 mg Tablet
5 mg PO TID 5 Days Qty: 8 0RF
oxycodone 10 mg Tablet
10 mg PO Q4HPRN PRN (Reason: severe pain) Qty: 20 0RF
polyethylene glycol 3350 17 gram Powder In Packet
17 g PO DAILY Qty: 14 0RF
isosorbide mononitrate 60 mg Tablet Extended Release 24 Hr
60 mg PO DAILY 30 Days Qty: 30 0RF
Continued
cholecalciferol (vitamin D3) [Vitamin D3] 25 mcg (1,000 unit) capsule
25 mcg PO DAILY
calcium acetate(phosphat bind) 667 mg capsule
1,334 mg PO MEALS
Veltassa 16.8 gram powder in packet
16.8 g PO DAILY
nifedipine 60 mg Tablet Extended Release
60 mg PO BID Qty: 60 0RF
insulin NPH and regular human 100 unit/mL (70-30) Suspension
21 unit SC BID
acetaminophen 500 mg Tablet
1,000 mg PO Q6HPRN PRN (Reason: mild pain)
Triphrocaps 1 mg Capsule
1 cap PO DAILY
aspirin 81 mg Tablet,Chewable
81 mg PO DAILY Qty: 30 0RF
pantoprazole 40 mg Tablet,Delayed Release (Dr/Ec)
40 mg PO DAILY Qty: 30 0RF
gabapentin 100 mg Capsule
100 mg PO HS Qty: 30 0RF
famotidine 40 mg Tablet
40 mg PO HS
ondansetron 4 mg Tablet,Disintegrating
4 mg PO Q8HPRN PRN (Reason: Nausea)
Discontinued
metoprolol tartrate 50 mg Tablet
50 mg PO BID Qty: 60 0RF
isosorbide mononitrate 30 mg Tablet Extended Release 24 Hr
30 mg PO DAILY Qty: 30 0RF
Discharge Orders:
Discharge Patient (As Directed); Ordered 06/15/24
Ordered By: Mitchell Thrasher
Discharge Date and Time
Discharge Date/Time: 06/15/24 19:30
Print Language: FRENCH
[2024-06-15] MEDS: LOKELMA PO (14:07)
[2024-06-15 15:52] VITALS: BP 115/50
[2024-06-15 16:55] LABS: Glucose - Point of Care 198 mg/dl (70-99)
[2024-06-15] MEDS: NOVOLOG FLEXPEN-LOW RESISTANCE 1 UNITS SC (17:07)
[2024-06-15] MEDS: LOKELMA 10 GRAM PO (18:09)
[2024-06-15 18:37] LABS: Carbon Dioxide 29 mmol/L (22-30); Chloride 97 mmol/L (98-107); Sodium 141 mmol/L (135-145)
[2024-06-15 18:58] VITALS: BP 144/47
== END 2024-06-15 19:30 | disposition home health service (06) | DRG 551 ==
LOC: 4 WEST ACU 14:49
PROVIDERS: Emergency Medicine; Internal Medicine Nephrology; Specialist; ADMITTING PHYSICIAN Hospitalist; ATTENDING PHYSICIAN Hospitalist; CONSULT PHYSICIAN Internal Medicine Cardiovascular Disease; EMERGENCY PHYSICIAN Student in an Organized Health Care Education/Training Program; FAMILY PHYSICIAN Family Medicine; OTHER PHYSICIAN Specialist
PROC: 5A1D70Z Performance of Urinary Filtration, Intermittent, Less than 6 Hours Per Day (ICD-10-PCS; 2024-06-11)
DX: M43.6 Torticollis (principal); N18.6 End stage renal disease; I13.2 Hypertensive heart and chronic kidney disease with heart failure and with stage 5 chronic kidney disease, or end stage renal disease; I50.32 Chronic diastolic (congestive) heart failure; C22.0 Liver cell carcinoma; I16.0 Hypertensive urgency; Z99.2 Dependence on renal dialysis; E11.22 Type 2 diabetes mellitus with diabetic chronic kidney disease; I25.10 Atherosclerotic heart disease of native coronary artery without angina pectoris; Z79.899 Other long term (current) drug therapy; Z86.73 Personal history of transient ischemic attack (TIA), and cerebral infarction without residual deficits; E78.00 Pure hypercholesterolemia, unspecified; E11.40 Type 2 diabetes mellitus with diabetic neuropathy, unspecified; D63.1 Anemia in chronic kidney disease; E87.5 Hyperkalemia; E11.319 Type 2 diabetes mellitus with unspecified diabetic retinopathy without macular edema; E83.39 Other disorders of phosphorus metabolism; Z79.4 Long term (current) use of insulin; Z79.82 Long term (current) use of aspirin
CPT/HCPCS: 93308; 71046; 72050; 80048; 80051; 80053; 82947; 82962; 83735; 84484; 85014; 85018; 85025; 93005; 93971; 97116; 97530; 99285; G0257; P9047; Q5106

== ENCOUNTER 2024-08-16 00:15 | Inpatient (IN) | payer OTHER, SELFPAY ==
[2024-08-15 21:28] VITALS: BP 172/59
[2024-08-15 21:36] VITALS: BMI 29.2
--- NOTE | 2024-08-15 22:21 | ED.GENMED ---
History of Present Illness
General
Chief Complaint: Chest Pain
Source: patient and family
Time Seen by Provider: 08/15/24 21:58
History of Present Illness
History of Present Illness:
69-year-old female presents to the emergency room for evaluation of fever, cough, shortness of breath. Patient also complaining of some chest discomfort. Patient has been unwell for the past 3 days. Symptoms started as a mild cough the cough is
seem to worsen. Fever developed over the past 24 hours. She also had some nausea vomiting today. Patient has end-stage renal disease and receives dialysis Monday. She did have dialysis yesterday.
Past History
Past History
ED Past Medical History: CVA (Visual issues), HTN, Hypercholesterolemia, IDDM, Renal failure (M-W-F dialysis) and Other (Headaches. Neuropathy, Colitis, )
ED Past Surgical History: Cholecystectomy and Other (AV fistula, Right eye implant)
Social History
Tobacco: Non-smoker
Alcohol: None
Drug: None
Personal:
Living: with family
Employment: Retired
Family History
Family History: Diabetes
Phy Exam
Physical Exam
Physical Exam:
General: Awake, Alert, Oriented X3. No acute distress.
Vitals: Hypertensive
Head: Atraumatic
Eyes: Pupils equal, EOMI
Throat: Airway intact, no exudates
Neck: Trachea midline
Lungs: Coarse breath sounds bilaterally
Heart: Regular rate, no murmurs
Abd: Soft, Nontender, No pulsatile mass
Neuro: Nonfocal
Skin: Warm, dry, no rash
Extremities: pulses equal b/l, no edema, left upper extremity AV fistula noted with good pulse
Scores
Heart Score for Chest Pain Patients
STEMI patient?: Not applicable
Course
Orders/Labs/Results
Orders:
Orders
08/15/24 21:21
EKG [Electrocardiogram (*1)] Urgent
Reason for Study: Chest Pain
EKG- Treatment ONCE
08/15/24 22:20
CR Chest - 2 Views Urgent
Comment:
Reason For Exam: fever, cough
08/15/24 22:21
Ipratropium/Albuterol Sulfate [Duoneb] 3 ml INH R NOW STA
08/15/24 22:32
Basic Metabolic Panel Urgent
COVID-19 Antigen Urgent
Source: Nasal Swab
Complete Blood Count/With Diff Urgent
Troponin I Urgent
Blood Culture Q30M
VERA Source: Blood/Venous
Specimen Description:
Blood Culture Q30M
VERA Source: Blood/Venous
Specimen Description:
08/15/24 23:00
Flush (0.9% Sodium Chloride) [Flush (Nss)] See Dose Instructions IV PER PROTOCOL
08/15/24 23:14
Cefepime HCl [Maxipime] 2,000 mg IV NOW STA
08/15/24 23:19
Vancomycin [Vancocin] 1,500 mg 0.9% Sodium Chloride 500 ml [Nss] 500 ml IV NOW
08/15/24 23:41
Influenza A+B Rapid Molecular Urgent
VERA Source: Nasal Swab
Specimen Description:
08/15/24 23:54
Admit/Transfer Patient As Directed
Co-Sign Provider:
Level of Care: Inpatient admission
Assign to:: IMU- Intermediate Care
Physician / Group: Bobby
Diagnosis: Pneumonia,Volume Overload, ESRD
Reason for Hospitalization: Pneumonia, Volume Overload, ESRD
Expected length of stay greater than two midnights?: Yes
ELOS- Estimated Length of Stay in days: 4
I certify the patient meets the requirements for IP care: Yes
08/15/24 23:55
PRN Pain Medication Management As Directed
May give lesser potent ordered pain med per pt: Yes
preference::
Protocol:: Medication orders for pain may be administered in a
manner that supports deferring to patient preference
when the pt is:
- Requesting an ordered lesser potent pain medication.
Least to most potent pain medications are defined
as: acetaminophen < NSAID < tramadol < opioids
(morphine, oxycodone, hydromorphone).
- Requesting a lesser dose of the same medication IF
ORDERED.
- Requesting a less intrusive route of administration
if both routes are prescribed by the provider (PO <
IV).
08/15/24 23:56
Code Status As Directed
Resuscitation Status: Full Code
08/16/24 01:16
Acetaminophen [Tylenol] 650 mg PO Q4HPRN PRN
Dextrose 50%-Water [Dextrose 50% Syringe] 12.5 grams IV [id number] PRN
Glucagon [GlucaGen] 1 mg IM PRN PRN
VANCOMYCIN Pharmacy to Dose [VANCOCIN Pharmacy to Dose] 1 each Pharmacy To Prepare [Call Pharmacy To Prepare] 0 ml IV PER PROTOCOL
08/16/24 01:16
Consult Notification Routine
Specialty to Notify: Nephrology
NEPHROLOGY CONSULT Routine
Consulting Provider: Maureen Bueno
Was physician already notified: No
Reason for consult: ESRD, Volume Overload
Activity As Directed
Activity Level: Ambulate
With Assistance
Bedside Glucose Monitoring As Directed
Frequency: AC&HS
Additional Instructions:: Change to q6h if pt on TPN, tube feeding or not eating
EKG with chest pain [ECG as needed] As Directed
ECG as needed for:: Chest Pain
I/O [Intake/ Output] As Directed
Frequency: Per unit guidelines
Vital Signs As Directed
Frequency: Per unit guidelines
Weight As Directed
Frequency: Daily
Oxygen Therapy [O2 Therapy] [RESP] Routine
Titrate/Wean O2 to maintain O2 sat greater than (%): 94
DX Deep Vein Thrombosis Video Routine
08/16/24 01:50
Troponin I Q6H
08/16/24 06:00
Basic Metabolic Panel IN AM
Complete Blood Count/No Diff IN AM
Glycohemoglobin (HgbA1c) IN AM
Magnesium IN AM
Phosphorus IN AM
08/16/24 07:16
Troponin I Q6H
08/16/24 07:30
Insulin Aspart Corrective Mod [Novolog Flexpen-Moderate Resistance] See Protocol SC AC
08/16/24 08:00
Aspirin Chewable [Low Strength Aspirin] 81 mg PO DAILY
Calcium Acetate [Phoslo] 2,001 mg PO MEALS
Cholecalciferol (Vitamin D3) [VITAMIN D3 (cholecalciferol)] 25 mcg PO DAILY
Gabapentin [Neurontin] 100 mg PO TID
Heparin 5,000 units SC Q12
NIFEdipine EXTENDED RELEASE [Procardia Xl (Extended Release)] 60 mg PO BID
Pantoprazole [Protonix] 40 mg PO DAILY
Renal Cap [Nephrocap] 1 capsule PO DAILY
08/16/24 13:16
Troponin I Q6H
08/16/24 22:00
Cefepime HCl [Maxipime] 500 mg IV Q24H
Famotidine [Pepcid] 40 mg PO HS
08/17/24 Breakfast
1800 calorie (15 carb) Diabetic
At Your Request: Non-Participating
Fluid Restriction: 1440 mL/day (48 oz)
Abnormal Lab Results
08/15/24
22:32
WBC 12.3 H 10^3/uL
(4.8-10.8)
RBC 3.16 L 10^6/uL
(4.20-5.40)
Hgb 8.9 L g/dL
(12.0-16.0)
Hct 27.8 L %
(37.0-47.0)
MCHC 32.0 L g/dL
(33.0-37.0)
RDW 16.3 H %
(11.5-14.5)
MPV 10.7 H fL
(7.4-10.4)
Abs Immat Gran (auto) 0.1 H 10^3/uL
(0-0.05)
Absolute Neuts (auto) 8.7 H 10^3/uL
(1.4-6.5)
Absolute Monos (auto) 1.2 H 10^3/uL
(0.1-0.6)
Lymphocytes % 16.7 L %
(20.5-51.1)
Monocytes % 9.9 H %
(1.7-9.3)
BUN 21 H mg/dl
(7-17)
Creatinine 6.2 H* mg/dL
(0.6-1.0)
Glucose 232 H mg/dl
(70-99)
08/15/24 22:32
08/15/24 22:32
Vital Signs
Initial and Last Documented VS:
Initial Vital Signs
Temp Pulse Resp BP Pulse Ox
98.7 F 73 20 172/59 82
08/15/24 21:28 08/15/24 21:28 08/15/24 21:28 08/15/24 21:28 08/15/24 21:28
Last Documented Vital Signs
Temp Pulse Resp BP Pulse Ox
98.4 F 72 26 162/55 91
08/16/24 01:32 08/16/24 01:15 08/16/24 01:15 08/16/24 00:00 08/16/24 01:00
MDM/Problems Addressed
Differential Diagnosis Includes:
Pneumonia, pulmonary edema, symptomatic anemia, viral illness
MDM/Problems Addressed:
Patient presents with fever, hypoxia, cough. Chest x-ray consistent with bilateral pneumonia. Broad-spectrum antibiotics initiated. Patient will require hospitalization. Possible that the patient's chest x-ray could be pulmonary edema or that
she has a combination of both infectious process and pulmonary edema. She is due for dialysis tomorrow which is reasonable as she is not in acute respiratory distress
*Pulse Oximetry
SaO2: 93
Nasal Cannula flow liters per minute: 4
Oxygen Mode of Delivery: Room air
Patient hypoxic: yes
*EKG
Interpreted by ED Provider?: Yes
Heart Rate: 73
Rate: normal
Rhythm: sinus
Center Point: normal axis
Interval: normal interval
QRS Pattern: normal QRS
Ischemia: non-specific ST changes
*Guest History Clerk Interpretation
Rate: normal
Interpretation: normal
Rhythm: sinus
*Critical Care Note
Total Time (30-74mins, 75-104mins- exclusive of procedures): Not Applicable
ED Attending Note
-
Portions of this chart may have been created with voice recognition software.� Occasional wrong word or��sound alike� substitutions may have occurred due to the inherent limitations of voice recognition software.
Discharge Plan
Departure
Patient Disposition: Admit
Date of Disposition: 08/15/24
Time of Disposition: 23:19
Admit to: Med/Surg
Presentation/result/management discussed w/ accepting MD/DO: Hospitalist
Condition: Fair
Discharge Problem:
Pneumonia, Acute hypoxic respiratory failure
Interventions
Interventions:
*Risk Screen - Suicide Last Done: 08/15/24 21:28
*General Assessment Last Done: 08/15/24 21:37
*Neglect/Abuse Screening Last Done: 08/15/24 21:28
*ED- Fall Risk Assessment Last Done: 08/15/24 21:37
*ED COVID-19 Vaccine History Last Done: 08/15/24 21:37
*Nursing Disposition Last Done: 08/16/24 01:26
ED- Cardiac Assessment Last Done: 08/15/24 21:37
Discharge Date and Time
Discharge Date/Time: 08/16/24 01:26
[2024-08-15 22:47] LABS: Hematocrit 27.8 % (37.0-47.0); Hemoglobin 8.9 g/dL (12.0-16.0); Mean Corp Hgb Conc. 32.0 g/dL (33.0-37.0); Mean Corpuscular Volume 88.0 fL (81.0-99.0); Nucleated Red Blood Cells % 0 %; Platelet Count 360 10^3/uL (130-400); Red Cell Dist. Width 16.3 % (11.5-14.5)
[2024-08-15 23:01] LABS: COVID-19 Antigen Negative (Negative)
[2024-08-15 23:03] LABS: Blood Urea Nitrogen 21 mg/dl (7-17); Calcium 9.4 mg/dl (8.4-10.2); Carbon Dioxide 28 mmol/L (22-30); Chloride 99 mmol/L (98-107); Estimated Creatinine Clearance 6 ml/min; Glucose 232 mg/dl (70-99); Potassium 4.0 mmol/L (3.5-5.1); Sodium 137 mmol/L (135-145); eGFR 6.74
[2024-08-15] MEDS: DUONEB 3 ML INH (23:03)
[2024-08-15 23:13] LABS: Troponin I < 0.012 ng/ml
[2024-08-15] MEDS: MAXIPIME 2000 MG IV (23:22)
[2024-08-15] MEDS: VANCOCIN 530 MG IV (23:34)
[2024-08-16] VITALS (48 sets, daily range): BP systolic 135–205; BP diastolic 40–120; BMI 29.4
--- NOTE | 2024-08-16 00:01 | HPS.HSE ---
Family Physician
-
Family Physician: Cal Luque
Chief Complaint
-
Cough, SOB
History of Present Illness
Patient is a 69y F with PMH significant for ESRD, DM-II and chronic anemia who presents to ED complaining of cough, SOB and chest pain. History obtained from patient and the family at the bedside. Patient developed hacking, non-productive cough
about 2 days ago. Has been sleeping poorly due to cough. Had fever at home yesterday to 101. Today she developed chest pain and SOB which prompted her to present to the ED for further evaluation. No known sick contacts.
Has HD on MWF. No recent missed sessions.
Medical History
Past Medical History
Past Medical History: Reports Other
Additional Past Medical History:
ESRD on HD (--)
DM-II
Hypertension
Anemia of CKD
Persistent Hyperkalemia
Suspected Hepatocellular Carcinoma (patient not aware per family request)
Volume Overload / CHFpEF
Past Surgical History: Reports Other
Additional Past Surgical History:
LUE AVG
Cholecystectomy
R Eye Surgery
Social History
Tobacco: Non-smoker
Alcohol: None
Drug: None
Family History
Family History: Not pertinent
Allergies / Home Medications
Allergies reflects when Allergies were last updated in [facility].
Home Medications with original date entered in [facility]
Allergy/Medication List:
Allergies
Allergy/AdvReac Type Severity Reaction Status Date / Time
No Known Allergies Allergy Verified 05/02/24 19:48
Home Medications
calcium acetate(phosphat bind) 667 mg capsule 2,001 mg PO MEALS supplement (renal) 02/25/22
cholecalciferol (vitamin D3) 25 mcg (1,000 unit) capsule (Vitamin D3) 25 mcg PO DAILY Supplement 02/25/22
nifedipine 60 mg tablet,extended release 60 mg PO BID #60 tabs 02/27/22
vitamin B complex and vitamin C no.20-folic acid 1 mg capsule (Triphrocaps) 1 cap PO DAILY Supplement 04/24/24
aspirin 81 mg chewable tablet 81 mg PO DAILY #30 tabs 05/04/24
pantoprazole 40 mg tablet,delayed release 40 mg PO DAILY #30 tabs 05/04/24
famotidine 40 mg tablet 40 mg PO HS Gastrointestinal Issue 06/03/24
ondansetron 4 mg disintegrating tablet 4 mg PO Q8HPRN PRN Nausea 06/05/24
gabapentin 100 mg capsule 100 mg PO TID 08/15/24
Review of Systems
-
History Source: Patient and Family
A 12 point ROS was completed and negative except as noted: Yes
Constitutional: Reports Fever, Fatigue and Chills
EENT: Denies Sore Throat
Respiratory: Reports Cough and Trouble Breathing
Cardiac: Reports Chest Pain; Denies Diaphoresis or Palpitations
Abdomen/GI: Denies Abdominal Pain, Nausea, Vomiting or Diarrhea
: Denies Flank Pain
Musculoskeletal: Denies Joint Pain or Edema
Neurological: Denies Dizzy or Headache
Psych: Denies Depression or Anxiety
Physical Exam
Vital Signs
Vital Signs
Temp Pulse Resp BP Pulse Ox
99.3 F 71 27 172/59 94
08/15/24 23:11 08/15/24 22:15 08/15/24 22:30 08/15/24 21:28 08/15/24 22:30
Physical Exam
General: Other (69y F in no acute distress. Mildly pale-appearing.)
HEENT: Moist mucous membranes and PERRLA
Respiratory: Other (Diffuse rales throughout. No wheezing.)
Cardiac: S1/S2, Regular Rhythm and Murmur (III/ ELIDIA)
GI: Soft, Non Tender, Non Distended and Normal Bowel Sounds
Musculoskeletal: No Clubbing, No Cyanosis and No Edema
Neuro: AO x 3
Hematologic/Lymphatic: Other (LUE AVF with pos thrill / bruit.)
Laboratory Results
-
08/15/24 22:32
08/15/24 22:32
Laboratory Results
Troponin I < 0.012 ng/ml 08/15/24 22:32
Impression/Plan
-
A/P: Patient is a 69y F with PMH significant for ESRD on HD, DM-II and chronic anemia who presents to ED c/o cough, chest pain and SOB.
Acute Hypoxemic Respiratory Failure
- Admit for further evaluation and treatment.
- Initial room air SpO2 was 82% - improved on supplemental O2.
- Likely multifactorial with components of respiratory infection and pulmonary edema / volume overload.
- Treat individual issues as noted below.
- Wean O2 as able.
Bilateral Pneumonia
- CXR and exam seem most c/w pulmonary edema; however, noted cough and fever at home suggest infectious process.
- Continue IV abx with vancomycin and cefepime for now.
- COVID negative in the ED. Flu added / pending.
- Follow-up culture data.
- Follow for clinical improvement.
ESRD on HD
Pulmonary Edema
- CXR and exam seem most consistent with pulmonary edema.
- Weight is increased from prior / recent admissions (54 to 61kg).
- Nephrology evaluation for HD. Would likely benefit from extra UF.
- Follow I/Os, daily weights, etc.
- Continue usual med / supplement regimen.
Benign Hypertension
- Continue current med regimen.
- Troponin undetectable. Cath done recently with non-obstructive coronary disease.
- Follow for improved BP control after HD.
- Adjust med regimen as needed for improved control.
DM-II
- Stable. Follow glucose and cover with SSI as needed.
- Update A1C.
GERD
- Stable. Continue acid-suppression regimen with PPI + H2 blockade.
Anemia of CKD
- Stable. Follow H&H for any changes.
Peripheral Neuropathy
- Stable. Continue gabapentin.
Known Hepatic Lesion
- Mass seen on multiple prior abdominal imaging studies.
- Most c/w hepatocellular carcinoma.
- Patient not aware of this finding at family request.
DVT Prophylaxis: Subcut Heparin
Code Status: Full
[2024-08-16 02:37] LABS: Troponin I < 0.012 ng/ml
[2024-08-16] MEDS: MELATONIN 5 MG PO (02:59)
[2024-08-16] MEDS: APRESOLINE 10 MG IV ×2 (02:59→14:34)
--- NOTE | 2024-08-16 03:00 | PTCARENOTE ---
Pt with hx of hypertension. received Pt from ED. BP 194/62. Pt asymptomatic. HR 73. RR 20. sat 94% on 4L. assessment findings communicated to PERFORMANCE MANAGER on shift. order received for prn dose of 10mg IV Apresoline. medication administered to Pt, see APR.
[2024-08-16 06:05] LABS: Hematocrit 26.5 % (37.0-47.0); Hemoglobin 8.6 g/dL (12.0-16.0); Mean Corp Hgb Conc. 32.5 g/dL (33.0-37.0); Mean Corpuscular Volume 86.3 fL (81.0-99.0); Platelet Count 347 10^3/uL (130-400); Red Cell Dist. Width 16.2 % (11.5-14.5)
[2024-08-16] MEDS: PROCARDIA XL (EXTENDED RELEASE) 60 MG PO ×2 (06:11→20:44)
[2024-08-16 06:23] LABS: Blood Urea Nitrogen 24 mg/dl (7-17); Calcium 9.4 mg/dl (8.4-10.2); Carbon Dioxide 27 mmol/L (22-30); Chloride 100 mmol/L (98-107); Estimated Creatinine Clearance 6 ml/min; Glucose 224 mg/dl (70-99); Magnesium 2.3 mg/dl (1.6-2.3); Potassium 4.3 mmol/L (3.5-5.1); Sodium 137 mmol/L (135-145); eGFR 6.14
[2024-08-16 07:12] LABS: Glucose - Point of Care 212 mg/dl (70-99)
[2024-08-16 08:24] LABS: Troponin I < 0.012 ng/ml
--- NOTE | 2024-08-16 08:29 | PHA.VAN.IN ---
Assessment
- Assessment
Renal Function: Patient has ESRD, on chronic Hemodialysis
Hemodialysis Schedule: MWF
Concomitant Antimicrobials: cefepime
Pre-HD level = 23.9
Plan
- Plan
Initial / Loading Dose: 1500mg - 08/15 23:34
Maintenance Regimen: dosing by level - hold off on dosing based on random level
Monitoring: random 08/17 0600 to ensure will maintain level through next HD
MRSA Screen: Ordered per protocol
Pharmacokinetics Vancomycin I
- -
Patient Age: 69
Patient Sex: Female
Vancomycin Day #: 1
Indication: Pulmonary/Respiratory
Requesting Provider: Dr. Rosales
Pertinent Antimicrobial Allergies:
NKDA
Height / Weight:
Height 4 ft 9 in
Actual Weight 61.5 kg
Pertinent Past Medical History: ERSD on HD, DM II
- Vital Signs / Lab Results
Temp Pulse Resp BP Pulse Ox
98.2 F 78 25 187/66 90
08/16/24 07:19 08/16/24 06:11 08/16/24 02:01 08/16/24 06:11 08/16/24 03:22
Lab Results - Hematology
08/15/24 08/16/24
22:32 05:47
WBC 12.3 H 12.7 H
Lab Results - Chemistry
08/15/24 08/16/24
22:32 05:47
BUN 21 H 24 H
Creatinine 6.2 H* 6.7 H*
Estimated Creat Clear 6 6
Microbiology Results
08/15/24 23:41 Influenza Types A & B (CY) - Final
Nasal Swab Negative for Influenza A & B, NAAT
Negative results must be combined with clinical observations
and patient history.
Nucleic Acid Amplification test (NAAT)performed on the
[employer] platform.
[2024-08-16 08:46] LABS: Glycohemoglobin (HgbA1c) 7.5 % (4.0-5.6)
[2024-08-16] MEDS: VITAMIN D3 (cholecalciferol) 25 MCG PO (08:53)
[2024-08-16] MEDS: NEURONTIN 100 MG PO ×3 (08:53→20:43)
[2024-08-16] MEDS: NEPHROCAP 1 CAPSULE PO (08:53)
[2024-08-16] MEDS: PROTONIX 40 MG PO (08:53)
[2024-08-16] MEDS: PHOSLO 2001 MG PO ×3 (08:53→16:31)
[2024-08-16] MEDS: LOW STRENGTH ASPIRIN 81 MG PO (08:54)
[2024-08-16] MEDS: NOVOLOG FLEXPEN-MODERATE RESISTANCE 3 UNITS SC ×2 (08:54→11:55)
[2024-08-16] MEDS: HEPARIN 5000 UNITS SC ×2 (08:54→20:38)
[2024-08-16 09:09] LABS: Hepatitis C Antibody Negative (Negative)
[2024-08-16 11:18] LABS: Glucose - Point of Care 247 mg/dl (70-99)
--- NOTE | 2024-08-16 12:43 | CM ---
Albanian speaking patient with Hx ESRD on HD with Dx Acute Hypoxemic Respiratory Failure, Bilateral Pneumonia. O2 12L. Receiving IV Vanco. Per nurse; A/O, assist to side of bed.
Patient unavailable/receiving dialysis and appeared to be sleeping.
Spoke with patient's daughter Namita;
the patient resides with her daughter Wilma, grandson & grand-daughter in a first floor apartment with 1 [address].
She was independent in ADLs and ambulation using her RW only after dialysis when she is tired.
Per prior CM notes 06/11/24 : Pt has 10 children.
Reconfirmed with daughter that patient attends outpt HD at [facility] MWF 0600, and family transports.
DME - RW
Prior [facility]
No prior SNF.
PCP - Cal Luque
Pharmacy - [facility]
Daughter unsure if she wants patient to have [facility] again at discharge, and will discuss with family.
CM Consult: Advanced Directive
Explained to daughter and left at bedside.
Plan watch for any home O2 needs at discharge.
Plan follow patient's mobility.
Plan probable home.
--- NOTE | 2024-08-16 12:56 | W.CON.NEPH ---
Consultation
-
Date/Time Consultation Requested: August 15, 2024 at 11 PM
Date/Time Consultation Performed: August 16, 2024 at 10 AM
Requesting Provider: Dr. young
Performing Provider: Dr. Marks
Reason for Consultation: ESRD
Medical History
-
Chief Complaint: Shortness of breath
History of Present Illness:
69y F with ESRD on HD MWF at [facility], chronic volume overload, anemia of chronic disease hypertension on multidrug regimen, chronic hyperkalemia hyperphosphatemia on calcium acetate, and DM-II on insulin who presents to ED with shortness
of breath and cough.
Renal consult for end-stage renal disease Monday last treatment was Monday.
Past Medical History
ESRD on HD (M-W-F)_[facility]
Hypertension
Anemia of CKD
Persistent Hyperkalemia
Suspected Hepatocellular Carcinoma (patient not aware per family request)
Volume Overload / CHFpEF
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
Diabetes mellitus, multiple microvascular complications, neuropathy, retinopathy and nephropathy.
History of CVA.
Cholecystectomy.
Chronic headaches.
Past Surgical History: Other (LUE AVG Cholecystectomy R Eye Surgery)
Social History
She resides at home with family. She does not smoke nor consume alcohol.
Family History
Anemia, CAD CKD, hypertension, and diabetes mellitus.
Family History: Not Pertinent
Allergies / Home Medications
Allergy/AdvReac Type Severity Reaction Status Date / Time
No Known Allergies Allergy Verified 05/02/24 19:48
�Medication �Instructions �Recorded �Confirmed �Type
calcium acetate(phosphat bind) 667 2,001 mg PO MEALS supplement 02/25/22 08/15/24 History
mg capsule (renal)
cholecalciferol (vitamin D3) 25 25 mcg PO DAILY Supplement 02/25/22 08/15/24 History
mcg (1,000 unit) capsule (Vitamin
D3)
nifedipine 60 mg tablet,extended 60 mg PO BID #60 tabs 02/27/22 08/15/24 Rx
release
vitamin B complex and vitamin C 1 cap PO DAILY Supplement 04/24/24 08/15/24 History
no.20-folic acid 1 mg capsule
(Triphrocaps)
aspirin 81 mg chewable tablet 81 mg PO DAILY #30 tabs 05/04/24 08/15/24 Rx
pantoprazole 40 mg tablet,delayed 40 mg PO DAILY #30 tabs 05/04/24 08/15/24 Rx
release
famotidine 40 mg tablet 40 mg PO HS Gastrointestinal Issue 06/03/24 08/15/24 History
ondansetron 4 mg disintegrating 4 mg PO Q8HPRN PRN Nausea 06/05/24 08/15/24 History
tablet
gabapentin 100 mg capsule 100 mg PO TID 08/15/24 08/15/24 History
Review of Systems
-
Shortness of breath no chest pain positive cough
All other systems: Negative unless noted
Physical Exam
Vital Signs
Vital Signs
Temp Pulse Resp BP Pulse Ox
99.8 F 77 24 171/62 96
08/16/24 11:09 08/16/24 10:45 08/16/24 10:45 08/16/24 10:00 08/16/24 10:45
Lab Results
WBC 12.7 10^3/uL (4.8-10.8) H 08/16/24 05:47
RBC 3.07 10^6/uL (4.20-5.40) L 08/16/24 05:47
Hgb 8.6 g/dL (12.0-16.0) L 08/16/24 05:47
Hct 26.5 % (37.0-47.0) L 08/16/24 05:47
Plt Count 347 10^3/uL (130-400) 08/16/24 05:47
Sodium 137 mmol/L (135-145) 08/16/24 05:47
Potassium 4.3 mmol/L (3.5-5.1) 08/16/24 05:47
Chloride 100 mmol/L (98-107) 08/16/24 05:47
Carbon Dioxide 27 mmol/L (22-30) 08/16/24 05:47
BUN 24 mg/dl (7-17) H 08/16/24 05:47
Creatinine 6.7 mg/dL (0.6-1.0) H* 08/16/24 05:47
eGFR 6.14 08/16/24 05:47
Glucose 224 mg/dl (70-99) H 08/16/24 05:47
Calcium 9.4 mg/dl (8.4-10.2) 08/16/24 05:47
Phosphorus 3.2 mg/dl (2.5-4.5) 08/16/24 05:47
Physical Exam
General no acute distress
HEENT no cephalic atraumatic extraocular muscle intact no scleral icterus no JVD neck supple
lungs bilateral rales
heart regular S1-S2 positive
abdomen soft nontender positive bowel sounds
extremities no edema pulses present bilateral
Neurologically nonfocal alert and oriented x 3
Skin no lesions no abrasions no petechiae
Psych normal affect no bizarre behavior
Data Reviewed
-
Radiology: Image Personally Visualized and interpreted
Labs: Labs Reviewed by me, Discussed with Patient and Discussed with Family
Assessment/Plan
-
IMP:
Shortness of breath= CHF versus pneumonia
ESRD on HD [facility] deny
Anemia of CKD
DM-II
Abnormal LFTs
Possible hepatocellular carcinoma (patient not aware per family request)
h/o CVA
Hyperphosphatemia
left UE AVG
Plan:
Continue Monday schedule
HD today, orders provided
Ultrafiltration 3 L
We will dialyze again tomorrow as chest x-ray significant pulmonary edema
--- NOTE | 2024-08-16 13:08 | W.PN.NEPH.HD ---
Progress Note - Hemodialysis
-
Date of Service: August 16, 2024
Duration: 30 minutes and 3 hours
Potassium Bath: 3
Calcium Bath: 2.5
Opti-Dialyzer: 160
Ultrafiltration: Other (3 kg)
Blood Flow: 400
Dialysate Flow: 600
Heparin: None
EPO: yes
[2024-08-16 14:12] LABS: Troponin I < 0.012 ng/ml
[2024-08-16] MEDS: RETACRIT 10000 UNITS IV (14:24)
--- NOTE | 2024-08-16 14:37 | PTCARENOTE ---
Dr. Singleton made aware that patient's systolic BP is 180's-200's. Patient is getting HD and is resting comfortably in bed. BP's are labile. PRN hydralazine given. Care ongoing.
--- NOTE | 2024-08-16 14:47 | W.PN.UPDATE ---
Update Note
Progress Note Update
Non billable note
1. Acute hypoxic respiratory failure -secondary to pulmonary edema. Chest x-ray reviewed. Patient getting planned regular hemodialysis today which should help getting the fluid balance correct. Wean off oxygen as possible
2. Possible pneumonia -patient spiking high-grade fever although with chest x-ray finding unable to differentiate infiltrates. Maintained on empiric antibiotics for timing. Sputum culture ordered if patient able to provide sample
3. Hypertensive urgency -patient systolic blood pressure in 180-200 range. Improved to systolic 150s post dialysis. May require as needed hydralazine if systolic blood pressure remains elevated
Patient is Albanian-speaking only and language line has been used for information gathering today
--- NOTE | 2024-08-16 15:49 | PTCARENOTE ---
AOx3. Patient is Vietnamese speaking. Roller Coaster Operator provided by the hospital utilized throughout shift. 12L midflow with SpO2 greater than 92%. Dry non productive cough. NSR on monitor. BP's labile. Oliguric at baseline. HD completed during shift. Assist
x1 to sit on side of bed. Call forrester within reach, bed in lowest position, and bed of wheels locked.
[2024-08-16] MEDS: TYLENOL 650 MG PO (16:36)
--- NOTE | 2024-08-16 16:49 | PTCARENOTE ---
100% on 12L midflow. Patient weaned to 6L midflow with SpO2 96%. Care ongoing.
[2024-08-16 16:50] LABS: Glucose - Point of Care 151 mg/dl (70-99)
[2024-08-16] MEDS: NOVOLOG FLEXPEN-MODERATE RESISTANCE SC (18:01)
[2024-08-16] MEDS: ROBITUSSIN DM 10 ML PO (18:14)
[2024-08-16] MEDS: TORADOL 15 MG IV (18:15)
[2024-08-16] MEDS: PEPCID 20 MG PO (20:44)
[2024-08-16] MEDS: MAXIPIME 500 MG IV (20:44)
[2024-08-16] MEDS: STERILE WATER FOR INJECTION 10 ML IV (20:45)
--- NOTE | 2024-08-16 21:17 | PTCARENOTE ---
Assumed care of pt from ge RN. Pt aaox3. NSR on monitor. 96% on 6L NC. Hygiene completed. SOHA medications administered (See MAR). Pt resting in bed with family at bedside and call forrester in reach.
[2024-08-16 21:31] LABS: Glucose - Point of Care 305 mg/dl (70-99)
[2024-08-16] MEDS: NOVOLOG FLEXPEN 5 UNITS SC (22:00)
--- NOTE | 2024-08-16 22:05 | PTCARENOTE ---
Pt's blood glucose 305. CARLOS MANUEL Guerra notified and Rx received for 5u NovoLog (see MAR).
[2024-08-17] VITALS (30 sets, daily range): BP systolic 105–167; BP diastolic 39–70; BMI 28.9
[2024-08-17] LABS: Glucose - Point of Care 215 mg/dl (70-99)
[2024-08-17 07:42] LABS: Glucose - Point of Care 203 mg/dl (70-99)
--- NOTE | 2024-08-17 08:02 | PTCARENOTE ---
Pt [id number] at bedside. L fistula with + Bruit + thrill. Amharic speaking. Family at bedside. Now on HD
[2024-08-17 08:15] LABS: Hematocrit 25.2 % (37.0-47.0); Hemoglobin 8.3 g/dL (12.0-16.0); Mean Corp Hgb Conc. 32.9 g/dL (33.0-37.0); Mean Corpuscular Volume 86.9 fL (81.0-99.0); Platelet Count 335 10^3/uL (130-400); Red Cell Dist. Width 16.1 % (11.5-14.5)
[2024-08-17 08:42] LABS: Blood Urea Nitrogen 18 mg/dl (7-17); Calcium 9.1 mg/dl (8.4-10.2); Carbon Dioxide 28 mmol/L (22-30); Chloride 101 mmol/L (98-107); Estimated Creatinine Clearance 8 ml/min; Glucose 198 mg/dl (70-99); Potassium 4.0 mmol/L (3.5-5.1); Sodium 137 mmol/L (135-145); eGFR 9.17
[2024-08-17] MEDS: NOVOLOG FLEXPEN-MODERATE RESISTANCE 3 UNITS SC (08:42)
--- NOTE | 2024-08-17 09:20 | PHA.VAN.FU ---
Vancomycin Assessment / Plan
- Assessment
Hemodialysis Schedule: MWF (HD today (Sat) per renal)
WBC's are: Stable
In the past 24 hrs, patient has been: Afebrile
Concomitant Antimicrobials: cefepime
- Assessment - Therapeutic Drug Monitoring
Random Level: 15.8 pre HD today
- Dosing Plan
Continue: dose by level HD
Dosing by Level: Re-dose today (500 mg x 1 dose post HD today)
- Monitoring Plan
No level(s) ordered at this time: order level next HD day am - Monday
- Follow Up
Pharmacy will continue to follow.
Vancomycin Follow UP
- -
Patient Age: 69
Patient Sex: Female
Vancomycin Day #: 2
Indication: Pulmonary/Respiratory
Requesting Provider: Dr. Rosales
Pertinent Antimicrobial Allergies:
NKDA
Height / Weight:
Height 4 ft 9 in
Actual Weight 60.498 kg
Pertinent Past Medical History: ERSD on HD, DM II
- Vital Signs / Lab Results
Temp Pulse Resp BP Pulse Ox
98.5 F 78 21 137/65 95
08/17/24 07:04 08/17/24 08:00 08/17/24 08:00 08/17/24 08:00 08/17/24 08:00
Lab Results - Hematology
08/15/24 08/16/24 08/17/24
22:32 05:47 07:38
WBC 12.3 H 12.7 H 12.0 H
Lab Results - Chemistry
08/15/24 08/16/24 08/17/24
22:32 05:47 07:39
BUN 21 H 24 H 18 H
Creatinine 6.2 H* 6.7 H* 4.8 H*
Estimated Creat Clear 6 6 8
Microbiology Results
08/15/24 22:32 Blood Culture - Preliminary
Blood/Venous No Growth in 24 hours- Final report to follow
08/15/24 22:32 Blood Culture - Preliminary
Blood/Venous No Growth in 24 hours- Final report to follow
08/16/24 05:25 Nasal Screen MRSA (PCR) - Final
Nose MRSA not detected - performed by PCR methodology.
08/15/24 23:41 Influenza Types A & B (CY) - Final
Nasal Swab Negative for Influenza A & B, NAAT
Negative results must be combined with clinical observations
and patient history.
Nucleic Acid Amplification test (NAAT)performed on the
[employer]ineGuard platform.
Therapeutic Drug Monitoring
Random Vancomycin 15.8 ug/ml 08/17/24 07:39
[2024-08-17] MEDS: NEPHROCAP 1 CAPSULE PO (11:35)
[2024-08-17] MEDS: PHOSLO PO (11:37)
[2024-08-17] MEDS: PROTONIX 40 MG PO (11:37)
[2024-08-17] MEDS: PHOSLO 2001 MG PO ×2 (11:37→17:05)
--- NOTE | 2024-08-17 11:37 | W.PN.NEPH.HD ---
Assessment
-
3 L UF
Progress Note - Hemodialysis
-
Date of Service: August 17, 2024
Duration: 30 minutes and 3 hours
Potassium Bath: 3
Calcium Bath: 2.5
Opti-Dialyzer: 160
Ultrafiltration: Other (3 kg)
Blood Flow: 400
Dialysate Flow: 600
Heparin: None
EPO: yes
[2024-08-17] MEDS: PROCARDIA XL (EXTENDED RELEASE) 60 MG PO ×2 (11:38→20:49)
[2024-08-17] MEDS: VITAMIN D3 (cholecalciferol) 25 MCG PO (11:39)
[2024-08-17] MEDS: NEURONTIN 100 MG PO ×3 (11:39→20:50)
[2024-08-17] MEDS: LOW STRENGTH ASPIRIN 81 MG PO (11:39)
[2024-08-17] MEDS: HEPARIN 5000 UNITS SC ×2 (11:40→20:48)
[2024-08-17] MEDS: NOVOLOG FLEXPEN-MODERATE RESISTANCE 1 UNITS SC (11:40)
[2024-08-17 11:46] LABS: Glucose - Point of Care 180 mg/dl (70-99)
[2024-08-17] MEDS: VANCOCIN HCL 500 MG 100 IV (13:09)
--- NOTE | 2024-08-17 13:33 | W.PN.HOSP.TC ---
Today's Communication/Plan
-
continue wean off o2 as possible
maintain on abx
HD per nephro
Assessment / Plan
Assessment / Plan
Acute Hypoxemic Respiratory Failure - improving
- Likely multifactorial with components of respiratory infection and pulmonary edema / volume overload.
- Improving slowly with oxygen requirement coming down and currently on 6 L oxygen through nasal cannula
Bilateral Pneumonia
- CXR and exam seem most c/w pulmonary edema; however, noted cough and fever at home suggest infectious process.
- Continue IV abx with vancomycin and cefepime for now.
- COVID negative in the ED. Flu neg.
- Sputum cs ordered if able to provide sample.
- Follow for clinical improvement.
ESRD on HD
Pulmonary Edema
- CXR and exam seem most consistent with pulmonary edema.
- Weight is increased from prior / recent admissions (54 to 61kg).
- Nephrology evaluation for HD. Getting round of UF today
- Follow I/Os, daily weights, etc.
- Continue usual med / supplement regimen.
Chest pain
- pleuritic in nature, exacerbated by cough
- Trop x2 neg.
- prn toradol ordered.
Essential HTN - uncontrolled
HTN urgency
- maintain on Procardia 60mg/bid
- PRN hydralazine for SBP > 160
DM-II
- Stable. Follow glucose and cover with SSI as needed.
- Update A1C.
GERD
- Stable. Continue acid-suppression regimen with PPI + H2 blockade.
Anemia of CKD
- Stable. Follow H&H for any changes.
Peripheral Neuropathy
- Stable. Continue gabapentin.
Known Hepatic Lesion
- Mass seen on multiple prior abdominal imaging studies.
- Most c/w hepatocellular carcinoma.
- Patient not aware of this finding at family request.
DVT Prophylaxis: Subcut Heparin
Code Status: Full
Total time spent ; 53 mins
Anticipated Discharge: 24 - 48 hours
Subjective/Interval History
-
Date of Service: August 17, 2024
o2 requirement down
some chest discomfort on deep cough
afebrile
Objective Data
-
Labs:
Laboratory Results
08/17/24 08/17/24
07:38 07:39
WBC 12.0 H
Hgb 8.3 L
Hct 25.2 L
Plt Count 335
Sodium 137
Potassium 4.0
Chloride 101
Carbon Dioxide 28
BUN 18 H
Creatinine 4.8 H*
Glucose 198 H
Calcium 9.1
Vital Signs:
Vital Signs
Temp Pulse Resp BP Pulse Ox
97.9 F 74 17 156/45 97
08/17/24 11:07 08/17/24 12:00 08/17/24 12:00 08/17/24 12:00 08/17/24 12:00
I&O
08/16/24 08/17/24 08/18/24
06:59 06:59 06:59
Intake Total 600 / 600 340 / 340
Balance 600 / 600 340 / 340
Review of Systems
-
Respiratory: Reports No Symptoms
Cardiac: Reports No Symptoms
Abdomen/GI: Reports No Symptoms
Physical Exam
-
General: Comfortable
HEENT: Negative Oxygen
Respiratory: Clear to Auscultation
Cardiac: Regular Rhythm, S1/S2 and Murmur
GI: Soft and Nontender
Musculoskeletal: No Edema and Other (Left arm AV fistula with good palpable thrill)
Neuro: Awake, Alert and Nonfocal/Grossly Intact
Psych: Calm and Intact Judgement/Insight
[2024-08-17] MEDS: NOVOLOG FLEXPEN-MODERATE RESISTANCE 7 UNITS SC (17:06)
[2024-08-17 17:17] LABS: Glucose - Point of Care 324 mg/dl (70-99)
--- NOTE | 2024-08-17 20:02 | PTCARENOTE ---
assumed care of pt from ge RN. Pt aaox3. Portuguese speaking. Pt 95% on 6L NC. NSR on monitor. Hygiene completed. Pt resting in bed with family at bedside and call forrester in reach.
[2024-08-17] MEDS: MAXIPIME 500 MG IV (20:49)
[2024-08-17] MEDS: STERILE WATER FOR INJECTION 10 ML IV (20:49)
[2024-08-17 21:19] LABS: Glucose - Point of Care 167 mg/dl (70-99)
[2024-08-18] VITALS (11 sets, daily range): BP systolic 132–170; BP diastolic 34–63; BMI 27.0
[2024-08-18 04:25] LABS: Hematocrit 29.1 % (37.0-47.0); Hemoglobin 9.3 g/dL (12.0-16.0); Mean Corp Hgb Conc. 32.0 g/dL (33.0-37.0); Mean Corpuscular Volume 86.1 fL (81.0-99.0); Platelet Count 352 10^3/uL (130-400); Red Cell Dist. Width 16.0 % (11.5-14.5)
[2024-08-18 04:54] LABS: Blood Urea Nitrogen 28 mg/dl (7-17); Calcium 9.7 mg/dl (8.4-10.2); Carbon Dioxide 26 mmol/L (22-30); Chloride 100 mmol/L (98-107); Estimated Creatinine Clearance 5 ml/min; Glucose 292 mg/dl (70-99); Potassium 4.2 mmol/L (3.5-5.1); Sodium 136 mmol/L (135-145); eGFR 6.04
[2024-08-18 07:53] LABS: Glucose - Point of Care 320 mg/dl (70-99)
[2024-08-18] MEDS: NOVOLOG FLEXPEN-MODERATE RESISTANCE 7 UNITS SC (08:57)
[2024-08-18] MEDS: VITAMIN D3 (cholecalciferol) 25 MCG PO (08:58)
[2024-08-18] MEDS: HEPARIN 5000 UNITS SC ×2 (08:58→20:06)
[2024-08-18] MEDS: PROCARDIA XL (EXTENDED RELEASE) 60 MG PO ×2 (08:58→20:06)
[2024-08-18] MEDS: LOW STRENGTH ASPIRIN 81 MG PO (08:58)
[2024-08-18] MEDS: PHOSLO 2001 MG PO ×3 (08:58→16:59)
[2024-08-18] MEDS: NEPHROCAP 1 CAPSULE PO (08:58)
[2024-08-18] MEDS: PROTONIX 40 MG PO (08:58)
[2024-08-18] MEDS: NEURONTIN 100 MG PO ×3 (08:58→21:21)
--- NOTE | 2024-08-18 09:26 | PHA.VAN.FU ---
Vancomycin Assessment / Plan
- Assessment
Hemodialysis Schedule: MWF
Last Hemodialysis performed: per renal 08/17
WBC's are: WNL
In the past 24 hrs, patient has been: Afebrile
Concomitant Antimicrobials: cefepime
- Assessment - Therapeutic Drug Monitoring
Random Level: 15.8 pre HD yesterday
500 mg x 1 ordered post HD yesterday
- Dosing Plan
Continue: dose by level HD days
- Monitoring Plan
Random Level: random level ordered 0600 08/19/24
- Follow Up
Pharmacy will continue to follow.
Vancomycin Follow UP
- -
Patient Age: 69
Patient Sex: Female
Vancomycin Day #: 3
Indication: Pulmonary/Respiratory
Requesting Provider: Dr. Rosales
Pertinent Antimicrobial Allergies:
NKDA
Height / Weight:
Height 4 ft 9 in
Actual Weight 56.6 kg
Pertinent Past Medical History: ERSD on HD, DM II
- Vital Signs / Lab Results
Temp Pulse Resp BP Pulse Ox
97.9 F 78 22 155/53 96
08/18/24 08:20 08/18/24 08:58 08/18/24 04:00 08/18/24 08:58 08/18/24 04:33
Lab Results - Hematology
08/15/24 08/16/24 08/17/24
22:32 05:47 07:38
WBC 12.3 H 12.7 H 12.0 H
08/18/24
04:13
WBC 10.5
Lab Results - Chemistry
08/15/24 08/16/24 08/17/24
22:32 05:47 07:39
BUN 21 H 24 H 18 H
Creatinine 6.2 H* 6.7 H* 4.8 H*
Estimated Creat Clear 6 6 8
08/18/24
04:13
BUN 28 H
Creatinine 6.8 H*
Estimated Creat Clear 5
Microbiology Results
08/15/24 22:32 Blood Culture - Preliminary
Blood/Venous No Growth in 48 hours- Final report to follow
08/15/24 22:32 Blood Culture - Preliminary
Blood/Venous No Growth in 48 hours- Final report to follow
08/16/24 05:25 Nasal Screen MRSA (PCR) - Final
Nose MRSA not detected - performed by PCR methodology.
Therapeutic Drug Monitoring
Random Vancomycin 15.8 ug/ml 08/17/24 07:39
[2024-08-18 11:54] LABS: Glucose - Point of Care 257 mg/dl (70-99)
[2024-08-18] MEDS: NOVOLOG FLEXPEN-MODERATE RESISTANCE 5 UNITS SC ×2 (12:00→17:10)
--- NOTE | 2024-08-18 12:30 | W.PN.HOSP.TC ---
Today's Communication/Plan
-
see note
Assessment / Plan
Assessment / Plan
Acute Hypoxemic Respiratory Failure - improving
- Likely multifactorial with components of respiratory infection and pulmonary edema / volume overload.
- o2 requirement has came down to 2L
- transfer to telemetry
Bilateral Pneumonia
- CXR and exam seem most c/w pulmonary edema; however, noted cough and fever at home suggest infectious process.
- Discontinue vancomycin, maintain on cefepime
- COVID negative in the ED. Flu neg.
- Sputum cs ordered if able to provide sample.
- Follow for clinical improvement.
ESRD on HD
Pulmonary Edema - Improving
- CXR and exam seem most consistent with pulmonary edema.
- Weight is increased from prior / recent admissions (54 to 61kg).
- Nephrology evaluation for HD. Got UF round on sat.
b/l Ear pain
- suspecting ET tube inflammation with high o2/drying mucosa. already on broad spectrum abx for PNA.
- zyrtec and 4 doses of afrin nasal spray ordered
- will do otoscopic exam later today.
Chest pain - improved
- pleuritic in nature, exacerbated by cough
- Trop x2 neg.
- prn toradol ordered.
Essential HTN - uncontrolled
HTN urgency
- maintain on Procardia 60mg/bid
- PRN hydralazine for SBP > 160
- BP remains uncontrolled. adding losartan to regimen
DM-II
- Stable. Follow glucose and cover with SSI as needed.
- A1c of 7.5
GERD
- Stable. Continue acid-suppression regimen with PPI + H2 blockade.
Anemia of CKD
- Stable. Follow H&H for any changes.
Peripheral Neuropathy
- Stable. Continue gabapentin.
Known Hepatic Lesion
- Mass seen on multiple prior abdominal imaging studies.
- Most c/w hepatocellular carcinoma.
- Patient not aware of this finding at family request.
DVT Prophylaxis: Subcut Heparin
Code Status: Full
Anticipated Discharge: 24 - 48 hours
Subjective/Interval History
-
Date of Service: August 18, 2024
complaining of some ear pain
o2 requirement coming down
Objective Data
-
Labs:
Laboratory Results
08/18/24
04:13
WBC 10.5
Hgb 9.3 L
Hct 29.1 L
Plt Count 352
Sodium 136
Potassium 4.2
Chloride 100
Carbon Dioxide 26
BUN 28 H
Creatinine 6.8 H*
Glucose 292 H
Calcium 9.7
Vital Signs:
Vital Signs
Temp Pulse Resp BP Pulse Ox
98.2 F 78 15 170/56 97
08/18/24 10:35 08/18/24 10:00 08/18/24 10:00 08/18/24 10:00 08/18/24 10:36
I&O
08/17/24 08/18/24 08/19/24
06:59 06:59 06:59
Intake Total 600 / 600 680 / 680
Balance 600 / 600 680 / 680
Review of Systems
-
Unable to obtain full review of systems at this time due to: Other (Obtained with help of patient granddaughter who acted as signal timer)
EENT: Reports Other (b/l Ear pain)
Respiratory: Reports No Symptoms
Cardiac: Reports No Symptoms
Abdomen/GI: Reports No Symptoms
Physical Exam
-
General: Comfortable
HEENT: Oxygen (2L NC)
Respiratory: Clear to Auscultation
Cardiac: Regular Rhythm, S1/S2 and Murmur
GI: Soft and Nontender
Musculoskeletal: No Edema and Other (Left arm AV fistula with good palpable thrill)
Neuro: Awake, Alert and Nonfocal/Grossly Intact
Psych: Calm and Intact Judgement/Insight
--- NOTE | 2024-08-18 12:56 | W.PN.NEPH.PH ---
Today's Communication / Plan
-
dialysis tomorrow
Assessment/Plan
-
IMP:
Shortness of breath= CHF versus pneumonia
ESRD on HD [facility]
Anemia of CKD
DM-II
Abnormal LFTs
Possible hepatocellular carcinoma (patient not aware per family request)
h/o CVA
Hyperphosphatemia
left UE AVG
Plan:
Antibiotics
Continue Monday schedule
Tolerated 6 L ultrafiltration over the last 48 hours
Blood pressure with some improvement
Dialysis again tomorrow
-
-
Date of Service: August 18, 2024
CC / HPI / ROS
-
Chief Complaint:
Shortness of breath
History of Present Illness:
ESRD presents with shortness of breath and hypertension
Review of Systems:
Breathing has improved
No chest pain
Labs
-
Labs:
WBC 10.5 10^3/uL (4.8-10.8) 08/18/24 04:13
RBC 3.38 10^6/uL (4.20-5.40) L 08/18/24 04:13
Hgb 9.3 g/dL (12.0-16.0) L 08/18/24 04:13
Hct 29.1 % (37.0-47.0) L 08/18/24 04:13
Plt Count 352 10^3/uL (130-400) 08/18/24 04:13
Sodium 136 mmol/L (135-145) 08/18/24 04:13
Potassium 4.2 mmol/L (3.5-5.1) 08/18/24 04:13
Chloride 100 mmol/L (98-107) 08/18/24 04:13
Carbon Dioxide 26 mmol/L (22-30) 08/18/24 04:13
BUN 28 mg/dl (7-17) H 08/18/24 04:13
Creatinine 6.8 mg/dL (0.6-1.0) H* 08/18/24 04:13
eGFR 6.04 08/18/24 04:13
Glucose 292 mg/dl (70-99) H 08/18/24 04:13
Calcium 9.7 mg/dl (8.4-10.2) 08/18/24 04:13
Phosphorus 3.2 mg/dl (2.5-4.5) 08/16/24 05:47
Physical Exam
-
Vital Signs:
Vital Signs
Temp Pulse Resp BP Pulse Ox
98.1 F 78 15 170/56 97
08/18/24 12:46 08/18/24 10:00 08/18/24 10:00 08/18/24 10:00 08/18/24 10:36
Cardiovascular:: Regular rate and rhythm
Respiratory:: Bilateral: Coarse
Lung Excursion:: Normal
Abdomen:: Nontender and Soft
Bowel Sounds:: Normal
Extremity Edema:: None: Bilateral:
[2024-08-18] MEDS: ZYRTEC 5 MG PO (13:13)
[2024-08-18] MEDS: COZAAR 25 MG PO (13:14)
[2024-08-18] MEDS: AFRIN NASAL SPRAY 1 SPRAYS NASAL ×2 (13:17→20:06)
--- NOTE | 2024-08-18 14:14 | PTCARENOTE ---
Assumed care of patient at beginning of this shift from previous RN with O2 4l midflow n/c in use. Able to wean to 2L; attempted RA but POx dropped to 88%. Currently 97% on 2L. Lungs coarse with scattered crackles bibasilar. Patient c/o b/l ear
pain, h/a and dizziness when turning her head. Dr Singleton notified via TT. He saw patient at bedside and ordered zyrtec as well as afrin. Family at bedside. See worklist for full assessment and vital signs.
--- NOTE | 2024-08-18 14:16 | PTCARENOTE ---
Patient downgraded to telemetry; to be transferred to 2130. Report given.
[2024-08-18 16:54] LABS: Glucose - Point of Care 286 mg/dl (70-99)
[2024-08-18 21:18] LABS: Glucose - Point of Care 258 mg/dl (70-99)
[2024-08-18] MEDS: MAXIPIME 500 MG IV (21:21)
[2024-08-18] MEDS: PEPCID 20 MG PO (21:21)
[2024-08-18] MEDS: STERILE WATER FOR INJECTION 10 ML IV (21:22)
[2024-08-19 03:26] VITALS: BP 140/58
[2024-08-19 06:26] VITALS: BMI 27.0
[2024-08-19 06:27] LABS: Hematocrit 28.1 % (37.0-47.0); Hemoglobin 9.0 g/dL (12.0-16.0); Mean Corp Hgb Conc. 32.0 g/dL (33.0-37.0); Mean Corpuscular Volume 87.0 fL (81.0-99.0); Platelet Count 396 10^3/uL (130-400); Red Cell Dist. Width 16.2 % (11.5-14.5)
[2024-08-19 07:08] LABS: Blood Urea Nitrogen 40 mg/dl (7-17); Calcium 10.2 mg/dl (8.4-10.2); Carbon Dioxide 24 mmol/L (22-30); Chloride 98 mmol/L (98-107); Estimated Creatinine Clearance 4 ml/min; Glucose 257 mg/dl (70-99); Potassium 4.9 mmol/L (3.5-5.1); Sodium 134 mmol/L (135-145); eGFR 4.26
[2024-08-19 07:25] VITALS: BP 116/71
[2024-08-19 07:37] LABS: Glucose - Point of Care 277 mg/dl (70-99)
[2024-08-19] MEDS: PHOSLO 2001 MG PO ×3 (08:11→17:21)
[2024-08-19] MEDS: ZYRTEC 5 MG PO (08:11)
[2024-08-19] MEDS: NEURONTIN 100 MG PO ×3 (08:11→22:30)
[2024-08-19] MEDS: LOW STRENGTH ASPIRIN 81 MG PO (08:11)
[2024-08-19] MEDS: VITAMIN D3 (cholecalciferol) 25 MCG PO (08:11)
[2024-08-19] MEDS: NEPHROCAP 1 CAPSULE PO (08:11)
[2024-08-19] MEDS: PROTONIX 40 MG PO (08:12)
[2024-08-19] MEDS: AFRIN NASAL SPRAY 30 SPRAYS NASAL (08:12)
[2024-08-19] MEDS: PROCARDIA XL (EXTENDED RELEASE) 60 MG PO ×2 (08:12→20:52)
[2024-08-19] MEDS: NOVOLOG FLEXPEN-MODERATE RESISTANCE 5 UNITS SC (08:13)
[2024-08-19] MEDS: HEPARIN 5000 UNITS SC ×2 (08:13→20:48)
[2024-08-19] MEDS: RETACRIT 10000 UNITS IV (08:22)
--- NOTE | 2024-08-19 09:24 | W.PN.NEPH.HD ---
Assessment
-
Seen on HD. no complaints. VSS. access ok
weight back down
Progress Note - Hemodialysis
-
Date of Service: August 19, 2024
Duration: 45 minutes and 3 hours
Potassium Bath: 3
Calcium Bath: 2.5
Opti-Dialyzer: 160
Ultrafiltration: Other
Blood Flow: 400
Dialysate Flow: 600
Heparin: no
EPO: [id number] units
[2024-08-19] MEDS: COZAAR PO (09:41)
--- NOTE | 2024-08-19 10:34 | CM ---
Reviewed the chart notes. Patient currently receiving HD. PT/OT evaluations pending. CM continues to be available to patient/family and is monitoring medical plan for needs at discharge.
Plan: Discharge plans will depend on the patient's progress. Awaiting PT/OT recommendation.
[2024-08-19 11:15] VITALS: BP 129/58
[2024-08-19 11:18] LABS: Glucose - Point of Care 160 mg/dl (70-99)
[2024-08-19] MEDS: NOVOLOG FLEXPEN-MODERATE RESISTANCE 1 UNITS SC (12:27)
--- NOTE | 2024-08-19 14:16 | W.PN.HOSP.TC ---
Today's Communication/Plan
-
CXR
If iproved would consider to observe off anabiotics
Wean off O2
Pt eval
Discahrge planning
Assessment / Plan
Assessment / Plan
Acute Hypoxemic Respiratory Failure - improving
- Likely multifactorial with components of respiratory infection and pulmonary edema / volume overload.
- Oxygen requirements improved. Will attempt to wean and assess for home O2.
Bilateral Infiltrates on admission with concern for pneumonia vs volume overload
- CXR and exam seem most c/w pulmonary edema; however, noted cough and fever at home suggest infectious process.
- Discontinue vancomycin, maintain on cefepime
- COVID negative in the ED. Flu neg.
- Sputum cs ordered if able to provide sample.
- Repeat CXR. If improved, would conider to observe off antibiotics
ESRD on HD
Pulmonary Edema - Improving
- CXR and exam seem most consistent with pulmonary edema.
- Weight is increased from prior / recent admissions (54 to 61kg).
- Nephrology evaluation for HD. Got UF round on sat.
b/l Ear pain
- suspecting ET tube inflammation with high o2/drying mucosa. already on broad spectrum abx for PNA.
- zyrtec and 4 doses of afrin nasal spray ordered
- will do otoscopic exam later today.
Chest pain - improved
- pleuritic in nature, exacerbated by cough
- Trop x2 neg.
- prn toradol ordered.
Essential HTN - uncontrolled
HTN urgency
- maintain on Procardia 60mg/bid
- PRN hydralazine for SBP > 160
- BP remains uncontrolled. adding losartan to regimen
DM-II
- Stable. Follow glucose and cover with SSI as needed.
- A1c of 7.5
GERD
- Stable. Continue acid-suppression regimen with PPI + H2 blockade.
Anemia of CKD
- Stable. Follow H&H for any changes.
Peripheral Neuropathy
- Stable. Continue gabapentin.
Known Hepatic Lesion
- Mass seen on multiple prior abdominal imaging studies.
- Most c/w hepatocellular carcinoma.
- Patient not aware of this finding at family request.
DVT Prophylaxis: Subcut Heparin
Code Status: Full
Anticipated Discharge: 24 - 48 hours
Subjective/Interval History
-
Date of Service: August 19, 2024
Objective Data
-
Labs:
Laboratory Results
08/19/24
05:45
WBC 11.1 H
Hgb 9.0 L
Hct 28.1 L
Plt Count 396
Sodium 134 L
Potassium 4.9
Chloride 98
Carbon Dioxide 24
BUN 40 H
Creatinine 9.1 H*
Glucose 257 H
Calcium 10.2
Vital Signs:
Vital Signs
Temp Pulse Resp BP Pulse Ox
98.1 F 80 16 129/58 100
08/19/24 11:15 08/19/24 11:15 08/19/24 11:15 08/19/24 11:15 08/19/24 11:15
I&O
08/18/24 08/19/24 08/20/24
06:59 06:59 06:59
Intake Total 680 / 680 400 / 400
Balance 680 / 680 400 / 400
Physical Exam
-
General: Comfortable
HEENT: Oxygen (2L NC)
Respiratory: Clear to Auscultation
Cardiac: Regular Rhythm, S1/S2 and Murmur
GI: Soft and Nontender
Musculoskeletal: No Edema and Other (Left arm AV fistula with good palpable thrill)
Neuro: Awake, Alert and Nonfocal/Grossly Intact
Psych: Calm and Intact Judgement/Insight
[2024-08-19] MEDS: TYLENOL 650 MG PO (14:20)
[2024-08-19 15:15] VITALS: BP 156/45
--- NOTE | 2024-08-19 15:35 | PN.CDI ---
CDI
- -
CDI:
Physician Documentation Request
Admit Date: 08/16/24 00:15
Dear Doctor Vel,
Please review the following and provide your response in the progress notes.
Clinical Indicators:
Pt admitted with Acute Hypoxic Respiratory Failure Likely multifactorial with components of respiratory infection and pulmonary edema / volume overload.
Documented per H&P, ' Volume Overload / CHFpEF...'
Documented per progress notes 08/17-08/19,' ESRD on HDPulmonary Edema - Improving CXR and exam seem most consistent with pulmonary edema. Weight is increased from prior / recent admissions (54 to 61kg). Nephrology evaluation for HD. Got UF round on
sat....'
CXR on admission 08/15, ' Moderate CHF with probable pulmonary interstitial and alveolar edema, progressed...'
Please provide a diagnosis for the above findings/Treatment of UF on HD:
Acute on Chronic HFpEF
Acute Noncardiogenic pulmonary Edema
Other ( please specify)
Use of terms such as suspected, likely, concern for, or probable (associated with a specific diagnosis that is being evaluated, monitored, or treated as if it exists) are acceptable and can be coded in the inpatient setting, when documented at the
time of discharge.
Thank you,
Rhonda Pinto RN
CDI Specialist
[place] [facility]
Please use your independent medical judgment in providing your response.
[2024-08-19 17:05] LABS: Glucose - Point of Care 372 mg/dl (70-99)
[2024-08-19] MEDS: NOVOLOG FLEXPEN-MODERATE RESISTANCE 9 UNITS SC (17:22)
[2024-08-19 19:05] VITALS: BP 146/50
[2024-08-19] MEDS: AFRIN NASAL SPRAY 1 SPRAYS NASAL (20:48)
[2024-08-19 21:48] LABS: Glucose - Point of Care 185 mg/dl (70-99)
[2024-08-19] MEDS: MAXIPIME 500 MG IV (23:28)
[2024-08-19 23:29] VITALS: BP 149/55
[2024-08-19] MEDS: STERILE WATER FOR INJECTION 10 ML IV (23:30)
[2024-08-20 03:41] VITALS: BP 132/54
[2024-08-20 06:00] VITALS: BMI 26.0
[2024-08-20 07:20] VITALS: BP 153/56
[2024-08-20 07:24] LABS: Glucose - Point of Care 277 mg/dl (70-99)
[2024-08-20] MEDS: COZAAR 25 MG PO (08:16)
[2024-08-20] MEDS: PROTONIX 40 MG PO (08:16)
[2024-08-20] MEDS: PROCARDIA XL (EXTENDED RELEASE) 60 MG PO (08:16)
[2024-08-20] MEDS: ZYRTEC 5 MG PO (08:16)
[2024-08-20] MEDS: PHOSLO 2001 MG PO ×2 (08:16→12:19)
[2024-08-20] MEDS: NEPHROCAP 1 CAPSULE PO (08:16)
[2024-08-20] MEDS: NEURONTIN 100 MG PO ×2 (08:16→16:08)
[2024-08-20] MEDS: HEPARIN 5000 UNITS SC (08:17)
[2024-08-20] MEDS: LOW STRENGTH ASPIRIN 81 MG PO (08:17)
[2024-08-20] MEDS: NOVOLOG FLEXPEN-MODERATE RESISTANCE 5 UNITS SC ×2 (08:17→12:19)
[2024-08-20] MEDS: VITAMIN D3 (cholecalciferol) 25 MCG PO (08:35)
[2024-08-20 09:10] VITALS: BP 151/54; PULSE 77; O2SAT 96
--- NOTE | 2024-08-20 10:17 | W.PN.NEPH.PH ---
Today's Communication / Plan
-
HD tomorrow
Assessment/Plan
-
IMP:
Shortness of breath= CHF versus pneumonia
ESRD on HD [facility]
Anemia of CKD
DM-II
Abnormal LFTs
Possible hepatocellular carcinoma (patient not aware per family request)
h/o CVA
Hyperphosphatemia
left UE AVG
Plan:
Antibiotics per primary team
Continue Monday HD schedule
HD tomorrow
d/w son on phone dietary and fluid restrictions
-
-
Date of Service: August 20, 2024
CC / HPI / ROS
-
Chief Complaint:
Shortness of breath
History of Present Illness:
ESRD presents with shortness of breath and hypertension
tolerated HD yesterday
BP stable
no supplemental O2
Review of Systems:
Breathing has improved
No chest pain
Labs
-
Labs:
WBC 11.1 10^3/uL (4.8-10.8) H 08/19/24 05:45
RBC 3.23 10^6/uL (4.20-5.40) L 08/19/24 05:45
Hgb 9.0 g/dL (12.0-16.0) L 08/19/24 05:45
Hct 28.1 % (37.0-47.0) L 08/19/24 05:45
Plt Count 396 10^3/uL (130-400) 08/19/24 05:45
Sodium 134 mmol/L (135-145) L 08/19/24 05:45
Potassium 4.9 mmol/L (3.5-5.1) 08/19/24 05:45
Chloride 98 mmol/L (98-107) 08/19/24 05:45
Carbon Dioxide 24 mmol/L (22-30) 08/19/24 05:45
BUN 40 mg/dl (7-17) H 08/19/24 05:45
Creatinine 9.1 mg/dL (0.6-1.0) H* 08/19/24 05:45
eGFR 4.26 08/19/24 05:45
Glucose 257 mg/dl (70-99) H 08/19/24 05:45
Calcium 10.2 mg/dl (8.4-10.2) 08/19/24 05:45
Phosphorus 3.2 mg/dl (2.5-4.5) 08/16/24 05:47
Physical Exam
-
Vital Signs:
Vital Signs
Temp Pulse Resp BP Pulse Ox
98.4 F 76 16 153/56 94
08/20/24 07:20 08/20/24 08:16 08/20/24 07:20 08/20/24 08:16 08/20/24 07:20
Cardiovascular:: Regular rate and rhythm
Respiratory:: Bilateral: CTA
Lung Excursion:: Normal
Abdomen:: Nontender and Soft
Bowel Sounds:: Normal
Extremity Edema:: None: Bilateral:
[2024-08-20 11:00] VITALS: BP 132/49
--- NOTE | 2024-08-20 11:17 | CM ---
Addendum entered by Na Ramirez RN 08/20/24 12:18:
CM spoke with the patient's daughter Namita via telephone. She has selected to resume with [facility]. Clinicals faxed to .
Original Note:
Reviewed the chart notes and left voice message for the patient's daughter Namita to discuss VN. OT recommending home health at discharge. Patient seen ambulating in hallway with staff. CM continues to be available to patient/family and is
monitoring medical plan for needs at discharge.
Plan: Discharge to home when medically stable. Need to confirm VN selection with daughter.
[2024-08-20 12:19] LABS: Glucose - Point of Care 253 mg/dl (70-99)
--- NOTE | 2024-08-20 15:24 | W.DCSUMMARY ---
Addendum entered and electronically signed by Douglas Crowder MD 08/21/24 15:43:
Acute noncardiogenic pulmonary edema with no evidence of CHF or pneumonia.
Original Note:
Discharge Summary
Discharge Data
Date of Admission: 08/16/24
Date of Discharge: 08/20/24
-
Pending Results: No
Hospital Course
Acute Hypoxemic Respiratory Failure - improving
- Likely multifactorial with components of respiratory infection and pulmonary edema / volume overload.
- Oxygen requirements improved and supplemental oxygen has been weaned off.
Follow-up chest x-ray with complete resolution of bilateral interstitial infiltrates.
Bilateral Infiltrates on admission with concern for pneumonia vs volume overload
Initial concern for pneumonia, ruled out given patient being afebrile, with minimal cough and complete resolution of bilateral infiltrates with volume management over dialysis per
Empiric antibiotics will be discontinued upon discharge.
ESRD on HD
Pulmonary Edema - Improving
- CXR and exam seem most consistent with pulmonary edema.
- Weight is increased from prior / recent admissions (54 to 61kg).
- Nephrology evaluation for HD. Got UF round on sat.
Chest pain - improved
- pleuritic in nature, exacerbated by cough
- Trop x2 neg.
- prn toradol ordered.
Essential hypertension
Hypertensive urgency upon admission due to volume overload improved with dialysis.
Initiated on losartan
DM-II
- Stable. Follow glucose and cover with SSI as needed.
- A1c of 7.5
GERD
- Stable. Continue acid-suppression regimen with PPI + H2 blockade.
Anemia of CKD
- Stable. Follow H&H for any changes.
Peripheral Neuropathy
- Stable. Continue gabapentin.
Known Hepatic Lesion
- Mass seen on multiple prior abdominal imaging studies.
- Most c/w hepatocellular carcinoma.
- Patient not aware of this finding at family request.
Complains of bilateral left greater than right lower extremity pain
Exam with full range of motion with no evidence of arthropathy all over.
Lower extremity Doppler negative for DVT
DVT Prophylaxis: Subcut Heparin
Code Status: Full
Discharge Plan
-
Patient Disposition: Home (Routine Discharge)
Discharge Diagnosis/Procedures: Volume overload
End-stage renal disease
Condition: Good
Diet: Diabetic, Carb Controlled
Referrals:
Cal Luque DO [Family Provider, [facility]]
Prescriptions:
New
losartan 25 mg Tablet
25 mg PO DAILY Qty: 30 0RF
Continued
cholecalciferol (vitamin D3) [Vitamin D3] 25 mcg (1,000 unit) capsule
25 mcg PO DAILY
calcium acetate(phosphat bind) 667 mg capsule
2,001 mg PO MEALS
nifedipine 60 mg Tablet Extended Release
60 mg PO BID Qty: 60 0RF
Triphrocaps 1 mg Capsule
1 cap PO DAILY
aspirin 81 mg Tablet,Chewable
81 mg PO DAILY Qty: 30 0RF
pantoprazole 40 mg Tablet,Delayed Release (Dr/Ec)
40 mg PO DAILY Qty: 30 0RF
famotidine 40 mg Tablet
40 mg PO HS
ondansetron 4 mg Tablet,Disintegrating
4 mg PO Q8HPRN PRN (Reason: Nausea)
gabapentin 100 mg capsule
100 mg PO TID
Discharge Orders:
Discharge Patient (As Directed); Ordered 08/20/24
Ordered By: Douglas Crowder
Discharge Date and Time
Print Language: TAJIK
[2024-08-20 16:03] VITALS: BP 139/52
== END 2024-08-20 17:16 | disposition home health service (06) | DRG 189 ==
LOC: 2 NORTH 00:15
PROVIDERS: Hospitalist; Specialist; ADMITTING PHYSICIAN Hospitalist; ATTENDING PHYSICIAN Internal Medicine; EMERGENCY PHYSICIAN Emergency Medicine; FAMILY PHYSICIAN Family Medicine; OTHER PHYSICIAN Internal Medicine Nephrology
PROC: 5A1D70Z Performance of Urinary Filtration, Intermittent, Less than 6 Hours Per Day (ICD-10-PCS; 2024-08-16)
DX: J81.0 Acute pulmonary edema (principal); J96.01 Acute respiratory failure with hypoxia; N18.6 End stage renal disease; J81.1 Chronic pulmonary edema; C22.0 Liver cell carcinoma; Z99.2 Dependence on renal dialysis; E11.22 Type 2 diabetes mellitus with diabetic chronic kidney disease; E87.70 Fluid overload, unspecified; I16.0 Hypertensive urgency; K21.9 Gastro-esophageal reflux disease without esophagitis; D63.1 Anemia in chronic kidney disease; E87.5 Hyperkalemia; E11.319 Type 2 diabetes mellitus with unspecified diabetic retinopathy without macular edema; E11.40 Type 2 diabetes mellitus with diabetic neuropathy, unspecified; E78.00 Pure hypercholesterolemia, unspecified; E83.39 Other disorders of phosphorus metabolism; Z11.52 Encounter for screening for COVID-19; Z86.73 Personal history of transient ischemic attack (TIA), and cerebral infarction without residual deficits; Z79.82 Long term (current) use of aspirin; Z79.899 Other long term (current) drug therapy; I12.9 Hypertensive chronic kidney disease with stage 1 through stage 4 chronic kidney disease, or unspecified chronic kidney disease; N18.9 Chronic kidney disease, unspecified
CPT/HCPCS: 71045; 71046; 80048; 80202; 82962; 83036; 83735; 84100; 84484; 85025; 85027; 86803; 87040; 87502; 87641; 87811; 93005; 93970; 94640; 96365; 96366; 96375; 97166; 99285; G0257; P9047; Q5106

== ENCOUNTER 2024-11-14 17:38 | Emergency (ER) | payer OTHER, SELFPAY ==
[2024-11-14 17:45] VITALS: BP 165/65
--- NOTE | 2024-11-14 20:22 | ED.GENMED ---
History of Present Illness
General
Chief Complaint: Breathing Problem
Source: patient
Exam Limitations: none
Time Seen by Provider: 11/14/24 20:05
History of Present Illness
History of Present Illness:
69-year-old Monday hemodialysis patient presents complaining of 2 to 3 days worth of cough and fatigue. Cough worsened today. No fever. The cough is dry. Appetite has been well. No vomiting. She denies any leg swelling. She
denies chest pain. She does note abdominal muscular pain from coughing. No other complaints at this time
Past History
Past History
ED Past Medical History: CVA (Visual issues), HTN, Hypercholesterolemia, IDDM, Renal failure (M-W-F dialysis) and Other (Headaches. Neuropathy, Colitis, )
ED Past Surgical History: Cholecystectomy and Other (AV fistula, Right eye implant)
Social History
Tobacco: Non-smoker
Alcohol: None
Drug: None
Personal:
Living: with family
Employment: Retired
Family History
Family History: Diabetes
Phy Exam
Physical Exam
Physical Exam:
General: Well appearing female NAD
HEENT: nc/AT
Heart: RRR, no murmurs
Lungs: CTA
Abd: Soft, nontender
Ext: no edema or cyanosis
Scores
Heart Failure Risk
Heart Failure Risk Score: Not Applicable
Course
Orders/Labs/Results
Orders:
Orders
11/14/24 17:40
EKG [Electrocardiogram (*1)] Urgent
Reason for Study: Shortness of Breath
EKG- Treatment ONCE
11/14/24 20:22
CR Chest - 2 Views Urgent
Comment:
Reason For Exam: cough
11/14/24 20:34
COVID-19 Antigen Urgent
Source: Nasal Swab
Complete Blood Count/With Diff Urgent
Comprehensive Metabolic Panel Urgent
Abnormal Lab Results
11/14/24
20:34
WBC 13.1 H 10^3/uL
(4.8-10.8)
RBC 3.90 L 10^6/uL
(4.20-5.40)
Hgb 10.2 L g/dL
(12.0-16.0)
Hct 32.5 L %
(37.0-47.0)
MCH 26.2 L pg
(27.0-31.0)
MCHC 31.4 L g/dL
(33.0-37.0)
RDW 17.0 H %
(11.5-14.5)
MPV 11.3 H fL
(7.4-10.4)
Absolute Neuts (auto) 9.7 H 10^3/uL
(1.4-6.5)
Absolute Monos (auto) 1.5 H 10^3/uL
(0.1-0.6)
Lymphocytes % 12.9 L %
(20.5-51.1)
Monocytes % 11.1 H %
(1.7-9.3)
Sodium 130 L mmol/L
(135-145)
Chloride 92 L mmol/L
(98-107)
BUN 41 H mg/dl
(7-17)
Creatinine 7.1 H* mg/dL
(0.6-1.0)
Glucose 284 H mg/dl
(70-99)
AST 86 H U/L
(14-36)
ALT 53 H U/L
(0-35)
Alkaline Phosphatase 470 H U/L
(38-126)
Total Protein 9.4 H g/dl
(6.3-8.2)
SARS-CoV-2 Antigen Positive A
(Negative)
11/14/24 20:34
11/14/24 20:34
Vital Signs
Initial and Last Documented VS:
Initial Vital Signs
Temp Pulse Resp BP Pulse Ox
99.0 F 90 16 165/65 92
11/14/24 17:45 11/14/24 17:45 11/14/24 17:45 11/14/24 17:45 11/14/24 17:45
Last Documented Vital Signs
Temp Pulse Resp BP Pulse Ox
99.0 F 88 18 165/65 92
11/14/24 17:45 11/14/24 20:20 11/14/24 20:20 11/14/24 17:45 11/14/24 20:24
MDM/Problems Addressed
Differential Diagnosis Includes:
Patient here with shortness of breath and cough. Consider viral illness such as COVID or influenza versus pneumonia versus volume overload however patient does not appear volume overloaded. Will test for COVID and flu chest x-ray pending.
Currently no respiratory distress and not hypoxic.
*Pulse Oximetry
SaO2: 92
Oxygen Mode of Delivery: Room air
Patient hypoxic: no
*Critical Care Note
Total Time (30-74mins, 75-104mins- exclusive of procedures): Not Applicable
Update Note
Update Note:
Patient tested positive for COVID. Overall no distress no respiratory distress. Chest x-ray clear. No indication for admission. Will discharge home with supportive care.
ED Attending Note
-
Portions of this chart may have been created with voice recognition software.� Occasional wrong word or��sound alike� substitutions may have occurred due to the inherent limitations of voice recognition software.
Discharge Plan
Departure
Patient Disposition: Home (Routine Discharge)
Date of Disposition: 11/14/24
Time of Disposition: 22:10
Patient with high blood pressure during this ER visit?: No
Discharge Problem:
COVID-19
Instructions: COVID-19 in adults (DC)
Prescriptions:
No Action
cholecalciferol (vitamin D3) [Vitamin D3] 25 mcg (1,000 unit) capsule
25 mcg PO DAILY
calcium acetate(phosphat bind) 667 mg capsule
2,001 mg PO MEALS
nifedipine 60 mg Tablet Extended Release
60 mg PO BID Qty: 60 0RF
Triphrocaps 1 mg Capsule
1 cap PO DAILY
aspirin 81 mg Tablet,Chewable
81 mg PO DAILY Qty: 30 0RF
pantoprazole 40 mg Tablet,Delayed Release (Dr/Ec)
40 mg PO DAILY Qty: 30 0RF
famotidine 40 mg Tablet
40 mg PO HS
ondansetron 4 mg Tablet,Disintegrating
4 mg PO Q8HPRN PRN (Reason: Nausea)
gabapentin 100 mg capsule
100 mg PO TID
losartan 25 mg Tablet
25 mg PO DAILY Qty: 30 0RF
Referrals:
Cal Luque DO [Family Provider, Family Practice]
Activity Restrictions/Additional Instructions:
Drink plenty fluids. Use Tylenol if needed for fever or pain. Return if worse otherwise follow-up with your doctor
Interventions
Interventions:
*Risk Screen - Suicide Last Done: 11/14/24 17:45
*General Assessment Last Done: 11/14/24 17:45
*Neglect/Abuse Screening Last Done: 11/14/24 17:45
ED- Cardiac Assessment Last Done: 11/14/24 20:21
ED- Pulmonary Assessment Last Done: 11/14/24 20:21
Discharge Date and Time
Print Language: STATELESS
[2024-11-14 20:45] LABS: Hematocrit 32.5 % (37.0-47.0); Hemoglobin 10.2 g/dL (12.0-16.0); Mean Corp Hgb Conc. 31.4 g/dL (33.0-37.0); Mean Corpuscular Volume 83.3 fL (81.0-99.0); Nucleated Red Blood Cells % 0 %; Platelet Count 344 10^3/uL (130-400); Red Cell Dist. Width 17.0 % (11.5-14.5)
[2024-11-14 20:59] LABS: COVID-19 Antigen Positive (Negative)
[2024-11-14 21:03] LABS: ALT (SGPT) 53 U/L (0-35); AST (SGOT) 86 U/L (14-36); Albumin 3.8 g/dl (3.5-5.0); Alkaline Phosphatase 470 U/L (38-126); Blood Urea Nitrogen 41 mg/dl (7-17); Calcium 9.4 mg/dl (8.4-10.2); Carbon Dioxide 28 mmol/L (22-30); Chloride 92 mmol/L (98-107); Glucose 284 mg/dl (70-99); Potassium 5.0 mmol/L (3.5-5.1); Sodium 130 mmol/L (135-145); Total Protein 9.4 g/dl (6.3-8.2); eGFR 5.73
== END 2024-11-14 22:32 | disposition home or self-care (01) ==
LOC: EMR 17:38
PROVIDERS: Physician Assistant; EMERGENCY PHYSICIAN Emergency Medicine; FAMILY PHYSICIAN Family Medicine
DX: U07.1 COVID-19 (principal); E10.22 Type 1 diabetes mellitus with diabetic chronic kidney disease; I12.0 Hypertensive chronic kidney disease with stage 5 chronic kidney disease or end stage renal disease; N18.6 End stage renal disease; Z99.2 Dependence on renal dialysis; E10.40 Type 1 diabetes mellitus with diabetic neuropathy, unspecified; E78.00 Pure hypercholesterolemia, unspecified; I69.398 Other sequelae of cerebral infarction; H53.9 Unspecified visual disturbance; Z79.82 Long term (current) use of aspirin; Z79.4 Long term (current) use of insulin; Z83.3 Family history of diabetes mellitus
CPT/HCPCS: 99284; 71046; 80053; 85025; 87811; 93005

== ENCOUNTER 2025-02-18 10:28 | Emergency (ER) | payer OTHER, SELFPAY ==
[2025-02-18 10:36] VITALS: BP 111/42
--- NOTE | 2025-02-18 10:46 | ED.GENMED ---
History of Present Illness
General
Chief Complaint: Abdominal Pain
Source: patient
Exam Limitations: none
Time Seen by Provider: 02/18/25 10:30
Nursing documentation reviewed up to this point in time: agreed with
History of Present Illness
History of Present Illness:
69-year-old female with a past medical history of hypertension, hyperlipidemia, CHF, ESRD on dialysis presents to the ER via EMS from her dialysis center apparently after an episode of lethargy. When asked the patient why she is here she says that
she needed to go to the bathroom and they would not let her and is requesting to be put on a bedpan that she says that the reason she is here in the ER is because they would not let her go to the bathroom. I clarified multiple times and this is her
consistent report. I asked her about episode of lethargy such as she does not recall feeling too lethargic and denies feeling lethargic here. She denies any chest pain, shortness of breath, dizziness, headache. According to EMS report she had
received all but 45 minutes of her dialysis and became lethargic, was apparently given 500 cc of fluid with improvement.
UPDATE
I was able to contact the staff at her dialysis center to obtain some collateral history: They report that during the treatment today she was a bit more lethargic than typical and towards the end of her treatment they had difficulty waking her
although she did wake to sternal rub. She had been a bit heavier today and so they had taken off 1.6 L of fluid during her treatment. Initially her blood pressure was okay and after she became more lethargic they noted that she was mildly
hypotensive and they gave her 500 cc of fluid back with improvement in the lethargy. She still was a bit more lethargic than usual however and so they decided to send her to the ER to be evaluated.
Past History
Past History
ED Past Medical History: CVA (Visual issues), HTN, Hypercholesterolemia, IDDM, Renal failure (M-W-F dialysis) and Other (Headaches. Neuropathy, Colitis, )
ED Past Surgical History: Cholecystectomy and Other (AV fistula, Right eye implant)
Social History
Tobacco: Non-smoker
Alcohol: None
Drug: None
Personal:
Living: with family
Employment: Retired
Family History
Family History: Diabetes
Review of Systems
Review of Systems
All Other Systems: ROS reviewed and negative except as documented in HPI and ROS
Constitutional: Denies fever
Respiratory: Denies trouble breathing
Cardiac: Denies chest pain
ABD/GI: Denies abdominal pain
: Denies flank pain
Musculoskeletal: Denies neck pain or back pain
Neurological: Denies headache
Phy Exam
Physical Exam
Physical Exam:
General: Awake, alert, oriented x3; no acute distress
Head: Normocephalic, atraumatic
Eyes: Conjunctiva normal, pupils equal round and reactive to light bilaterally
Throat: Airway intact, handling secretions
Neck: Trachea midline, supple without meningismus
Lungs: Clear to auscultation bilaterally, no wheezing, rales, rhonchi
Heart: Regular rate and rhythm, faint systolic murmur
Abd: Soft, non distended, nontender
Neuro: Grossly intact
Skin: Warm and dry
Extremities: No edema in extremities, left upper extremity fistula with pressure dressing in place
Scores
Heart Failure Risk
Heart Failure Risk Score: Not Applicable
Heart Score for Chest Pain Patients
STEMI patient?: Not applicable
Withdrawal Assessment of Alcohol
Withdrawal Assessment Completed?: Not applicable
Course
Orders/Labs/Results
Orders:
Orders
02/18/25 10:41
Electrocardiogram (*1) Urgent
Reason for Study: Fatigue / Weakness
EKG- Treatment ONCE
02/18/25 10:46
Complete Blood Count/With Diff Urgent
Comprehensive Metabolic Panel Urgent
02/18/25 10:56
Troponin I Urgent
Abnormal Lab Results
02/18/25
10:46
MCH 25.7 L pg
(27.0-31.0)
MCHC 30.4 L g/dL
(33.0-37.0)
RDW 21.2 H %
(11.5-14.5)
MPV 10.7 H fL
(7.4-10.4)
Abs Immat Gran (auto) 0.1 H 10^3/uL
(0-0.05)
Absolute Neuts (auto) 7.4 H 10^3/uL
(1.4-6.5)
Absolute Monos (auto) 0.9 H 10^3/uL
(0.1-0.6)
Lymphocytes % 13.8 L %
(20.5-51.1)
Sodium 133 L mmol/L
(135-145)
Chloride 94 L mmol/L
(98-107)
BUN 25 H mg/dl
(7-17)
Creatinine 4.8 H* mg/dL
(0.6-1.0)
Glucose 278 H mg/dl
(70-99)
AST 90 H U/L
(14-36)
ALT 61 H U/L
(0-35)
Alkaline Phosphatase 644 H U/L
(38-126)
Total Protein 11.0 H g/dl
(6.3-8.2)
02/18/25 10:46
02/18/25 10:46
Vital Signs
Initial and Last Documented VS:
Initial Vital Signs
Temp Pulse Resp BP Pulse Ox
36.7 C 64 20 111/42 95
02/18/25 10:36 02/18/25 10:36 02/18/25 10:36 02/18/25 10:36 02/18/25 10:36
Last Documented Vital Signs
Temp Pulse Resp BP Pulse Ox
36.7 C 64 20 111/42 95
02/18/25 10:36 02/18/25 10:36 02/18/25 10:36 02/18/25 10:36 02/18/25 10:53
MDM/Problems Addressed
Differential Diagnosis Includes:
Transient hypotension/hypovolemia, hypoglycemia, vasovagal episode, dysrhythmia; nothing to suggest TIA/stroke or acute DC
MDM/Problems Addressed:
69-year-old female presents to the ER sent from her dialysis center apparently after an episode of transient lethargy that improved with some fluids. Dialysis was stopped about 45 minutes early due to lethargy. She cannot recall being lethargic
says she feels fine now aside from having to go to the bathroom and she thinks she is here because they could not help her to the bathroom. Apparently her son is on the way to the hospital, she does not necessarily seem confused here she is quite
clear that she feels fine. It may be that she had had a bowel movement and had a vasovagal episode where she may have been transiently hypotensive from dialysis. Plan to check basic labs and EKG and will monitor on telemetry.
Labs reviewed: CBC no clinically significant abnormalities, CMP shows findings in line with CKD. Known diabetes she is hyperglycemic today. LFTs abnormal but stable. Troponin undetectable. Her vital signs have been stable on the observation.
Her son is at bedside says she is at her baseline she is awake and talking. Suspect that this was likely due to excessive volume removal at dialysis. Stable for discharge home. Spoke about return precautions all questions answered.
Chronic conditions affecting care:
ESRD on dialysis, CHF
*Pulse Oximetry
SaO2: 95
Oxygen Mode of Delivery: Room air
Patient hypoxic: no (95%)
*EKG
Interpreted by ED Provider?: Yes
Comparison EKG: changes noted
Heart Rate: 61
Rate: normal
Rhythm: sinus
[place]: normal axis
Interval: normal interval
QRS Pattern: left vent hypertrophy
Ischemia: T-wave inversion (Lateral T wave inversions)
*Critical Care Note
Total Time (30-74mins, 75-104mins- exclusive of procedures): Not Applicable
Data Reviewed
Source: patient and records
ED Attending Note
-
Portions of this chart may have been created with voice recognition software.� Occasional wrong word or��sound alike� substitutions may have occurred due to the inherent limitations of voice recognition software.
Discharge Plan
Departure
Patient Disposition: Home (Routine Discharge)
Date of Disposition: 02/18/25
Time of Disposition: 12:25
Patient with high blood pressure during this ER visit?: No
Discharge Problem:
Lethargy
Instructions: Weakness - ED (DC)
Prescriptions:
No Action
cholecalciferol (vitamin D3) [Vitamin D3] 25 mcg (1,000 unit) capsule
25 mcg PO DAILY
calcium acetate(phosphat bind) 667 mg capsule
2,001 mg PO MEALS
nifedipine 60 mg Tablet Extended Release
60 mg PO BID Qty: 60 0RF
Triphrocaps 1 mg Capsule
1 cap PO DAILY
aspirin 81 mg Tablet,Chewable
81 mg PO DAILY Qty: 30 0RF
pantoprazole 40 mg Tablet,Delayed Release (Dr/Ec)
40 mg PO DAILY Qty: 30 0RF
famotidine 40 mg Tablet
40 mg PO HS
ondansetron 4 mg Tablet,Disintegrating
4 mg PO Q8HPRN PRN (Reason: Nausea)
gabapentin 100 mg capsule
100 mg PO TID
losartan 25 mg Tablet
25 mg PO DAILY Qty: 30 0RF
Referrals:
Cal Luque DO [Family Provider, Family Practice] - Follow up in 5-7 days
Activity Restrictions/Additional Instructions:
Thank you for visiting the Emergency Department at [facility].
1. Please schedule a follow up appointment as directed. Call first thing tomorrow morning to make an appointment.
2. If indicated, please take your medications as instructed and indicated on discharge paperwork.
3. If any of your symptoms do not improve, or persist, or become more severe within 6-12 hours, please return to the emergency department for further care.
4. Please return to the emergency department if you develop a headache, neck pain/stiffness, fever greater than 100.4F, chest pain, shortness of breath, persistent nausea, vomiting, slurred speech, difficulty walking, numbness/tingling, weakness,
signs of infection or any other symptoms that are worrisome to you.
Please call [phone] if you have any questions.
Interventions
Interventions:
*General Assessment Last Done: 02/18/25 10:36
*Neglect/Abuse Screening Last Done: 02/18/25 10:36
*ED COVID-19 Vaccine History Last Done: 02/18/25 10:36
*ED Influenza Vaccine History Last Done: 02/18/25 10:36
[facility] Fall Risk Assessment Tool Last Done: 02/18/25 10:36
*Risk Screen - Suicide (C-SSRS) Last Done: 02/18/25 10:36
Discharge Date and Time
Print Language: [place] LE[place]
[2025-02-18 10:54] LABS: Hematocrit 44.1 % (37.0-47.0); Hemoglobin 13.4 g/dL (12.0-16.0); Mean Corp Hgb Conc. 30.4 g/dL (33.0-37.0); Mean Corpuscular Volume 84.6 fL (81.0-99.0); Nucleated Red Blood Cells % 0.2 %; Platelet Count 284 10^3/uL (130-400); Red Cell Dist. Width 21.2 % (11.5-14.5)
[2025-02-18 11:12] LABS: ALT (SGPT) 61 U/L (0-35); AST (SGOT) 90 U/L (14-36); Albumin 4.2 g/dl (3.5-5.0); Alkaline Phosphatase 644 U/L (38-126); Blood Urea Nitrogen 25 mg/dl (7-17); Calcium 9.2 mg/dl (8.4-10.2); Carbon Dioxide 29 mmol/L (22-30); Chloride 94 mmol/L (98-107); Estimated Creatinine Clearance 9 ml/min; Glucose 278 mg/dl (70-99); Potassium 3.9 mmol/L (3.5-5.1); Sodium 133 mmol/L (135-145); eGFR 9.17
[2025-02-18 11:30] LABS: Troponin I < 0.012 ng/ml
[2025-02-18 11:34] LABS: Total Protein 11.0 g/dl (6.3-8.2)
[2025-02-18 12:49] VITALS: BP 122/65
== END 2025-02-18 12:56 | disposition home or self-care (01) ==
LOC: EMR 10:28
PROVIDERS: EMERGENCY PHYSICIAN Emergency Medicine; FAMILY PHYSICIAN Family Medicine
DX: E11.22 Type 2 diabetes mellitus with diabetic chronic kidney disease (principal); I13.2 Hypertensive heart and chronic kidney disease with heart failure and with stage 5 chronic kidney disease, or end stage renal disease; E78.00 Pure hypercholesterolemia, unspecified; I50.9 Heart failure, unspecified; N18.6 End stage renal disease; Z99.2 Dependence on renal dialysis; R53.83 Other fatigue; Z79.4 Long term (current) use of insulin; Z86.73 Personal history of transient ischemic attack (TIA), and cerebral infarction without residual deficits; Z90.49 Acquired absence of other specified parts of digestive tract
CPT/HCPCS: 99284; 80053; 84484; 85025; 93005